=== PATIENT | male | born 1955 | race Two or more races ===

== ENCOUNTER 2016-05-22 17:57 | Emergency (ER) | payer OTHER, MEDICAID ==
[2016-05-22] MEDS ORDERED: IPRATROPIUM/ALBUTEROL 3 ML DEYVIAL IH ONE ×2 (19:46→20:36)
[2016-05-22 19:59] LABS: % IMMATURE GRANULYOCYTES 0.4 % (0.0-1.1); ABSOLUTE IMMATURE GRANULOCYTES 0.02 10^3/uL (0.00-0.10); ADD DIFF? NO; ADD MORPH? NO; ADD SCAN? NO; ATYPICAL LYMPHOCYTE FLAG 70 (0-99); FRAGMENT RBC FLAG 0 (0-99); HEMATOCRIT 48.1 % (40.0-51.0); HEMOGLOBIN 17.1 g/dL (13.7-17.5); LEFT SHIFT FLG 0 (0-99); LIPEMIA HEMOLYSIS FLAG 90 (0-99); MEAN CELL HEMOGLOBIN 32.3 pg (27.9-34.1); MEAN CELL HEMOGLOBIN CONCENTR. 35.6 g/dL (32.4-36.7); MEAN CELL VOLUME 90.8 fL (81.5-99.8); MEAN PLATELET VOLUME 11.9 fL (8.7-11.7); PLATELET CLUMPS FLAG 0 (0-99); PLATELET COUNT 99 10^3/uL (150-400); RED CELL DISTRIBUTION WIDTH 14.3 % (11.5-15.2)
--- NOTE | 2016-05-22 20:00 | CPEKG ---
Heart Rate: 71 RR Interval: 845 P-R Interval: 180 QRSD Interval: 100 QT Interval: 372 QTC Interval: 405 P [place]: 63 QRS [place]: 56 T Wave [place]: 45 EKG Severity - NORMAL ECG - EKG Impression: SINUS RHYTHM Electronically Signed By: Sedrick Briceño 23-May-2016 01:03:41
[2016-05-22 20:10] LABS: ANION GAP 8 mEq/L (8-16); CARBON DIOXIDE 24 mEq/l (22-31); CHLORIDE 107 mEq/L (97-110); CREATININE 0.6 mg/dL (0.7-1.3); GLOMERULAR FILTRATION RATE > 60; GLUCOSE 89 mg/dL (70-100); POTASSIUM 4.1 mEq/L (3.5-5.2); SODIUM 139 mEq/L (134-144)
[2016-05-22] MEDS ORDERED: BENZONATATE 100 MG CAP PO ONE (20:26)
[2016-05-22] MEDS ORDERED: OSELTAMIVIR PHOSPHATE 75 MG CAP PO ONE (20:26)
[2016-05-22] MEDS ORDERED: NS 1,000 ML IV ONE (20:30)
--- NOTE | 2016-05-22 20:30 | DX ---
PA and Lateral Chest History: Cough in a 60-year-old male; comparison PA and lateral chest February 03, 2013 Findings: The heart and mediastinal contours are normal. Pulmonary vascularity is normal. Aortic tort uosity is seen which could reflect hypertension. There is central peribronchial thickening. Hyperexpansion is identified. The CT scan of the chest suzan wed mild centrilobular emphysema without pulmonary fibrosis. Streaky lower lung opacities bilaterally are unchanged and probably reflect scarring. Postoperative changes are noted involving the right suzan ulder. Impression: 1. Airways disease possibly a combination of emphysema and chronic bronchitis. 2. See above report for additional findings.
--- NOTE | 2016-05-22 20:33 | EDPHY ---
H & P Time Seen by Provider: 05/22/16 19:40 HPI/ROS: HPI Cough, congestion. Is 60-year-old male by private vehicle. Patient reports that he has had bronchitis with cough and congestion on and off for the last 2 months. She reports that for the last several days he has felt dehydrated, sometimes fatigued and lightheaded and had a worsening cough with body aches and muscle aches. He denies having a fever. ROS: Constitutional: No fever, no chills. As above. Eyes: No discharge. No changes in vision. ENT: No sore throat. No nasal congestion or rhinorrhea. Respiratory: As above. Cardiac: No chest pain, no palpitations. Gastrointestinal: No abdominal pain, no vomiting, no diarrhea. Musculoskeletal: As above. Skin: No rashes. Neurological: No headache. No focal weakness or altered sensation. Past medical history: Pneumonia, anxiety. Social history: Nonsmoker. Physical Exam: General Appearance: Alert, no distress. This patient is responding to questions appropriately and in full sentences. This patient appears well- hydrated and well-nourished. Eyes: Pupils equal and round no pallor or injection. No lid edema, erythema or injection. Respiratory: There are no retractions, good air movement bilaterally. Scant rhonchi and wheezing bilaterally. No tachypnea. Cardiovascular: Regular rate and rhythm. No murmur. Neurological: Motor sensory function is grossly intact. Cranial nerves are normal. Gait is normal. Skin: Warm and dry, no rashes. Musculoskeletal: Neck is supple and nontender. Extremities are symmetrical. All joints range without pain or impingement. Psychiatric: No agitation. No depression. Database: Influenza-positive for influenza A. EKG: Imaging: Chest x-ray PA and lateral; the cardiac mediastinal silhouette is unremarkable. No evidence of infiltrate or pneumothorax. Bronchitis, some hyper expansion, diffuse airway disease. No acute cardiopulmonary disease process noted. Interpreted by me. Procedures: Emergency department course: IV placed. He was placed on a monitor. He was started on IV normal saline. 1 L to be given over the next hour for dehydration. He was initially given an albuterol/Atrovent nebulizer treatment. After diagnosis of influenza A he was given 75 mg of Tamiflu. He was given 200 mg of Tessalon Perle. Nebulizer repeated at 8:40 p.m.. 9:00 p.m., patient re-evaluated. He is feeling better at this time. Results of his diagnostic tests were reviewed with him. Chest x-ray was discussed. He feels comfortable going home. I feel he is safe for discharge. I stressed close follow-up with his primary care physician. Return to emergency department precautions reviewed. Oral hydration was discussed. He will be discharged with a meter dose inhaler, instructions for high-dose ibuprofen, Tessalon Perle and Tamiflu. He was discharged in good condition. Differential Diagnosis: The differential diagnosis on this patient includes but is not limited to bronchitis, upper respiratory infection, influenza, pneumonia. This represents a partial list of diagnoses considered. These considerations are based on history, physical exam, past history, reassessment and diagnostic testing. Smoking Status: Current every day smoker Constitutional: Initial Vital Signs Temperature (C) 36.8 C 05/22/16 18:15 Heart Rate 76 05/22/16 18:15 Respiratory Rate 16 05/22/16 18:15 Blood Pressure 148/86 H 05/22/16 18:15 O2 Sat (%) 91 L 05/22/16 18:15 O2 Delivery Mode Room Air Allergies/Adverse Reactions: No Known Allergies Allergy (Verified 05/22/16 18:29) Home Medications: Medication Instructions Recorded Albuterol [Proventil Inhaler HFA 2 puffs IH Q2-4PRN PRN #1 mdi 05/22/16 (*)] Benzonatate [Tessalon Pearles] 100 mg PO TID #12 cap 05/22/16 GABAPENTIN 400 mg PO 05/22/16 MIRTAZAPINE [Remeron 7.5 mg] 7.5 mg PO HS 05/22/16 Oseltamivir Phosphate [Tamiflu 75 75 mg PO BID #10 cap 05/22/16 mg (RX)] buPROPion [Wellbutrin] 100 mg PO 05/22/16 Medical Decision Making - Data Points Laboratory Results: Laboratory Results 05/22/16 19:40 05/22/16 19:40 05/22/16 05/22/16 19:40 19:05 WBC 5.29 10^3/uL (3.80-9.50) RBC 5.30 10^6/uL (4.40-6.38) Hgb 17.1 g/dL (13.7-17.5) Hct 48.1 % (40.0-51.0) MCV 90.8 fL (81.5-99.8) MCH 32.3 pg (27.9-34.1) MCHC 35.6 g/dL (32.4-36.7) RDW 14.3 % (11.5-15.2) Plt Count 99 L 10^3/uL (150-400) MPV 11.9 H fL (8.7-11.7) Neut % (Auto) 48.0 % (39.3-74.2) Lymph % (Auto) 40.6 % (15.0-45.0) [place] % (Auto) 8.1 % (4.5-13.0) Eos % (Auto) 2.5 % (0.6-7.6) Baso % (Auto) 0.4 % (0.3-1.7) Nucleat RBC Rel Count 0.0 % (0.0-0.2) Absolute Neuts (auto) 2.54 10^3/uL (1.70-6.50) Absolute Lymphs (auto) 2.15 10^3/uL (1.00-3.00) Absolute Monos (auto) 0.43 10^3/uL (0.30-0.80) Absolute Eos (auto) 0.13 10^3/uL (0.03-0.40) Absolute Basos (auto) 0.02 10^3/uL (0.02-0.10) Absolute Nucleated RBC 0.00 10^3/uL (0-0.01) Immature Gran % 0.4 % (0.0-1.1) Immature Gran # 0.02 10^3/uL (0.00-0.10) Sodium 139 mEq/L (134-144) Potassium 4.1 mEq/L (3.5-5.2) Chloride 107 mEq/L (97-110) Carbon Dioxide 24 mEq/l (22-31) Anion Gap 8 mEq/L (8-16) BUN 11 mg/dL (7-23) Creatinine 0.6 L mg/dL (0.7-1.3) Estimated GFR > 60 Glucose 89 mg/dL (70-100) Calcium 10.0 mg/dL (8.5-10.4) Influenza Typ A,B (DFA) POSITIVE FOR FLU A H (NEGATIVE) Medications Given: Discontinued Medications Albuterol/Ipratropium (Duoneb) 3 ml IH EDNOW ONE Stop: 05/22/16 19:47 Last Admin: 05/22/16 20:00 Dose: 3 ml Benzonatate (Tessalon Pearles) 200 mg PO EDNOW ONE Stop: 05/22/16 20:27 Last Admin: 05/22/16 20:37 Dose: 200 mg Oseltamivir Phosphate (Tamiflu) 75 mg PO EDNOW ONE Stop: 05/22/16 20:27 Last Admin: 05/22/16 20:36 Dose: 75 mg Departure - Departure Disposition: Home, Routine, Self-Care Clinical Impression: Influenza A, Bronchitis Condition: Good Instructions: Influenza (ED), Acute Bronchitis (ED) Additional Instructions: Read and follow provided instructions. Follow-up with your primary care physician in tomorrow without fail. Take medication as prescribed. Ibuprofen dosin mg every 6 hours with meals for the next 3 days only. Albuterol meter dose inhaler: 1-2 puffs every 2-4 hours as needed for cough and shortness of breath. It is very important that you keep yourself well hydrated. Drink lots of fluids. A good fluid to drink is Gatorade mixed with water in a 1-1 dilution. Return to the emergency department for worsening cough, difficulty breathing, high fever or other serious concerns. Referrals: Maria D Dinh MD [Primary Care Provider] - As per Instructions Prescriptions: Albuterol [Proventil Inhaler HFA (*)] 2 puffs IH Q2-4PRN PRN #1 mdi PRN Reason: Sob/Dyspnea Oseltamivir Phosphate [Tamiflu 75 mg (RX)] 75 mg PO BID #10 cap Benzonatate [Tessalon Pearles] 100 mg PO TID #12 cap
[2016-05-22 20:39] VITALS: RESP 18
[2016-05-22] MEDS ORDERED: ALBUTEROL INH PREPACK MDI TAKEHOME ONE (21:05)
[2016-05-22 21:41] VITALS: BP 134/88; PULSE 78; TEMP 97.9; O2SAT 93
== END 2016-05-22 21:42 | disposition home or self-care (01) ==
DX: J10.1 Influenza due to other identified influenza virus with other respiratory manifestations (principal); J40 Bronchitis, not specified as acute or chronic; F17.200 Nicotine dependence, unspecified, uncomplicated

== ENCOUNTER → 2016-06-10 | Outpatient (CLI) | payer OTHER | LOC: FIMAGING 11:41 | PROVIDERS: ATTEND Internal Medicine | DX: J43.9 Emphysema, unspecified (principal) ==

== ENCOUNTER → 2016-06-14 | Outpatient (CLI) | payer OTHER | LOC: BHFA 13:30 | PROVIDERS: ATTEND Internal Medicine Cardiovascular Disease | DX: R00.2 Palpitations (principal) ==

== ENCOUNTER 2017-01-24 00:02 | Inpatient (IN) | payer OTHER ==
[2017-01-24] MEDS ORDERED: NS 1,000 ML IV ONE ×2 (00:08→00:26)
[2017-01-24] MEDS ORDERED: ONDANSETRON 4 MG/2 ML VIAL IVP ONE (00:08)
[2017-01-24] MEDS ORDERED: HYDROmorphONE/DILAUDID 1 MG/ML INJ IVP ONE ×3 (00:08→01:47)
--- NOTE | 2017-01-24 00:12 | EDPHY ---
H & P HPI/ROS: HPI CHIEF COMPLAINT: Abdominal pain HISTORY OF PRESENT ILLNESS: This patient is a 61-year-old male he presents emergency room by EMS for abdominal pain. Patient reports to me around 4:00 p.m. today he developed abdominal pain lower in his abdomen sharp stabbing this is radiate up to his epigastric region and sometimes up into his chest. He tells me his abdomen is distended and more bigger than it normally is. The pain is persisted. He felt nauseous but could not vomit. He had a normal bowel movement earlier. He denies any chest pain however he does report the pain in his abdomen radiates up into his mid epigastric region. He has not had fever. No shortness of breath. He received 100 mcg of IV fentanyl in route which improved his abdominal pain. This is been present since 4:00 p.m. or approximately 8 hours ago. He has no history of coronary artery disease or stroke. Past Medical History: COPD on 5 L of oxygen. Past Surgical History: Cholecystectomy Social History: Daily Use of ETOH, Tobacco. Denies Drugs. Family History: Noncontributory. ROS REVIEW OF SYSTEMS: A comprehensive 10 point review of systems is otherwise negative aside from elements mentioned in the history of present illness. Exam Constitutional appears nontoxic triage nursing summary reviewed, vital signs reviewed, awake/alert. Eyes normal conjunctivae and sclera, EOMI, PERRLA. HENT normal inspection, atraumatic, moist mucus membranes, no epistaxis, neck supple/ no meningismus, no raccoon eyes. Respiratory clear to auscultation bilaterally, normal breath sounds, no respiratory distress, no wheezing. Cardiovascular rate normal, regular rhythm, no murmur, no edema, distal pulses normal. Gastrointestinal abdomen is soft however round and large, tender diffusely, more tenderness the epigastric and bilateral lower quadrants, no peritoneal signs no guarding, normal bowel sounds, no distension, no pulsatile mass. Genitourinary no CVA tenderness. Musculoskeletal no midline vertebral tenderness, full range of motion, no calf swelling, no tenderness of extremities, no meningismus, good pulses, neurovascularly intact. Skin pink, warm, & dry, no rash, skin atraumatic. Neurologic awake, alert and oriented x 3, AAOx3, moves all 4 extremities equally, motor intact, sensory intact, CN II-XII intact, normal cerebellar, normal vision, normal speech. Psychiatric normal mood/affect. Heme/Lymph/Immune no lymphadenopathy. Differential diagnosis includes but is not limited to and in no particular order : Bowel obstruction, appendicitis, gallbladder disease, diverticulitis, colitis , enteritis, perforated viscus, gastritis, GERD, esophagitis, urinary tract infection, pyelonephritis, kidney stones Medical Decision Making: Plan for this patient IV establishment IV fluid bolus , full monitoring manager, EKG, check troponin, CT scan abdomen pelvis with IV contrast with lactic acid, evaluate abdominal pain. Check lipase. LFTs. Inflammatory markers. UA. Re-evaluate. 1 mg IV Dilaudid for pain control. Re-evaluation: EKG interpretation by me on record in [employer] system. Impression time of EKG , this is sinus rhythm rate of 86. There is no acute ischemic change appreciated. Specifically no ST elevation. No ST depressions no significant T- wave abnormalities. When I compare this EKG to his old EKG dated 05/22/2016 is very similar morphology. Lipase elevated 2000+. Most likely cause of abdominal pain. Will admit to the hospitalist service for acute pancreatitis. 0136AM: CT scan reviewed. Shows acute pancreatitis. No necrotizing pancreatitis no pseudocyst. Pain control with IV Dilaudid. Updated patient. Agrees for admission for acute pancreatitis. Spoke with the hospitalist service Dr. Hawthorne who agrees to admit. Source: Patient, EMS - Medical/Surgical History Hx Chronic Respiratory Disease: Yes Other PMH: past hx PNA. anxiety - Social History Smoking Status: Current every day smoker Constitutional: Initial Vital Signs Temperature (C) 36.6 C 01/24/17 00:08 Heart Rate 89 01/24/17 00:08 Respiratory Rate 16 01/24/17 00:08 Blood Pressure 162/102 H 01/24/17 00:08 O2 Sat (%) 89 L 01/24/17 00:08 O2 Delivery Mode Nasal Cannula O2 (L/minute) 5 Allergies/Adverse Reactions: No Known Allergies Allergy (Verified 01/24/17 00:12) Home Medications: Medication Instructions Recorded Albuterol [Proventil Inhaler HFA 1 - 2 puffs IH Q4H PRN 01/24/17 (*)] Diltiazem HCl [Cartia XT 180mg] 180 mg PO DAILY 01/24/17 Gabapentin [Neurontin 300 MG (*)] 1,200 mg PO HS 01/24/17 Gabapentin [Neurontin 300 MG (*)] 600 mg PO DAILY 01/24/17 Mirtazapine [Remeron] 45 mg PO HS 01/24/17 Tiotropium Inhaler [Spiriva 1 inh IH DAILY 01/24/17 Inhaler] busPIRone [Buspar (*)] 7.5 mg PO BID 01/24/17 Medical Decision Making - Data Points Laboratory Results: Laboratory Results 01/24/17 00:16 01/24/17 00:16 Medications Given: Acetaminophen (Tylenol Rectal) 650 mg MO Q4 PRN PRN Reason: Pain, Mild/Fever,Can't Take PO Stop: 07/24/17 19:23 Last Admin: 01/26/17 04:25 Dose: 650 mg Albuterol (Ventolin Hfa Inhaler) 4 puffs IH [facility] Stop: 07/24/17 11:59 Last Admin: 01/26/17 19:47 Dose: 4 puffs Buspirone HCl (Buspar) 7.5 mg PO BID [facility] Stop: 07/23/17 08:59 Last Admin: 01/26/17 20:06 Dose: 7.5 mg Chlorhexidine Gluconate (Peridex) 15 ml PO Q12@08,20 [place] Stop: 07/24/17 19:59 Last Admin: 01/26/17 20:08 Dose: 15 ml Enoxaparin Sodium (Lovenox) 40 mg SC DAILY [place] Stop: 07/23/17 08:59 Last Admin: 01/26/17 09:00 Dose: 40 mg Gabapentin (Neurontin) 600 mg PO DAILY [facility] Stop: 07/23/17 08:59 Last Admin: 01/26/17 09:44 Dose: Not Given Gabapentin (Neurontin) 1,200 mg PO HS [facility] Stop: 07/23/17 20:59 Last Admin: 01/26/17 20:06 Dose: 1,200 mg Sodium Chloride (Ns) 1,000 mls @ 75 mls/hr IV CONT [place] Stop: 07/23/17 02:59 Last Admin: 01/26/17 20:32 Dose: 1,000 mls Dexmedetomidine HCl 400 mcg/ (Sodium Chloride) 104 mls @ 0 mls/hr IV CONT SILVANO; Titrate PRN Reason: Protocol Stop: 07/23/17 10:59 Last Admin: 01/25/17 09:11 Dose: 104 mls Famotidine/Sodium Chloride (Pepcid 20 Mg (Premix)) 50 mls @ 200 mls/hr IV Q12HRS [place] Stop: 07/24/17 20:59 Last Admin: 01/26/17 20:07 Dose: 50 mls Fentanyl/Sodium Chloride (Fentanyl 10 Mcg/Ml (Premix)) 100 mls @ 0 mls/hr IV CONT SILVANO; Per Protocol PRN Reason: Protocol Stop: 02/04/17 09:59 Last Admin: 01/26/17 07:47 Dose: 100 mls Propofol (Diprivan 10 Mg/Ml (Premix)) 100 mls @ 0 mls/hr IV CONT SILVANO; Per Protocol PRN Reason: Protocol Stop: 07/24/17 09:59 Last Admin: 01/26/17 10:08 Dose: 100 mls Diltiazem HCl 125 mg/ Dextrose 125 mls @ 0 mls/hr IV CONT SILVANO; Per Protocol PRN Reason: Protocol Stop: 07/25/17 03:29 Last Admin: 01/26/17 12:57 Dose: 125 mls Ertapenem 1 gm/ Sodium (Chloride) 100 mls @ 200 mls/hr IV DAILY SILVANO PRN Reason: Protocol Stop: 02/25/17 12:59 Last Admin: 01/26/17 13:08 Dose: 100 mls Lorazepam (Ativan Injection) 1 mg IVP Q6H [place] Stop: 07/24/17 09:44 Last Admin: 01/26/17 16:42 Dose: 1 mg Methylprednisolone Sodium Succinate (Solu-Medrol) 40 mg IVP Q6HRS S[place]AN[place] Stop: 07/24/17 08:29 Last Admin: 01/26/17 17:51 Dose: 40 mg Mirtazapine (Remeron) 45 mg PO HS SIL[place]ANO Stop: 07/23/17 20:59 Last Admin: 01/26/17 20:06 Dose: 45 mg Nicotine (Nicoderm Cq) 21 mg TD DAILY S[place]AN[place] Stop: 07/23/17 08:59 Last Admin: 01/26/17 09:03 Dose: 21 mg Promethazine HCl (Phenergan) 6.25 - 12.5 mg IVP Q6HRS PRN PRN Reason: Nausea/Vomiting, Use 2nd Stop: 07/23/17 02:57 Last Admin: 01/24/17 04:13 Dose: 12.5 mg Discontinued Medications Albuterol/Ipratropium (Duoneb) 3 ml IH QID [facility] Stop: 07/23/17 08:59 Last Admin: 01/25/17 08:35 Dose: 3 ml Diltiazem HCl (Cardizem Er Q24hr) 180 mg PO DAILY [facility] Stop: 07/23/17 09:59 Last Admin: 01/25/17 09:38 Dose: Not Given Diltiazem HCl (Cardizem Immediate Release) 30 mg PO Q6HRS [facility] Stop: 07/24/17 11:59 Last Admin: 01/25/17 12:56 Dose: 30 mg Diltiazem HCl (Cardizem Immediate Release) 30 mg PO Q4H [facility] Stop: 07/24/17 16:59 Last Admin: 01/25/17 20:30 Dose: 30 mg Diltiazem HCl (Cardizem Immediate Release) 30 mg PO Q4H [facility] Stop: 07/25/17 00:59 Last Admin: 01/26/17 09:44 Dose: Not Given Fentanyl (Sublimaze) 100 mcg IVP ONCE ONE Stop: 01/25/17 11:16 Last Admin: 01/25/17 09:20 Dose: 100 mcg Furosemide (Lasix Injection) 20 mg IVP ONCE ONE Stop: 01/25/17 08:23 Last Admin: 01/25/17 08:32 Dose: 20 mg Furosemide (Lasix Injection) 20 mg IVP ONCE ONE Stop: 01/25/17 09:11 Last Admin: 01/25/17 09:00 Dose: 20 mg Hydralazine HCl (Apresoline) 10 mg IVP Q2HRS PRN PRN Reason: SBP Greater Than 180,DBP>110 Stop: 07/23/17 04:56 Last Admin: 01/24/17 13:05 Dose: 10 mg Hydromorphone HCl (Dilaudid) 1 mg IVP EDNOW ONE Stop: 01/24/17 00:09 Last Admin: 01/24/17 00:25 Dose: 1 mg Hydromorphone HCl (Dilaudid) 1 mg IVP EDNOW ONE Stop: 01/24/17 01:16 Last Admin: 01/24/17 01:18 Dose: 1 mg Hydromorphone HCl (Dilaudid) 1 mg IVP EDNOW ONE Stop: 01/24/17 01:48 Last Admin: 01/24/17 01:59 Dose: 1 mg Hydromorphone HCl (Dilaudid) 0.5 - 1 mg IVP Q2HRS PRN PRN Reason: Pain, Severe Unable to Take PO Stop: 02/03/17 02:56 Last Admin: 01/24/17 13:59 Dose: 1 mg Sodium Chloride (Ns) 1,000 mls @ 0 mls/hr IV EDNOW ONE; Wide Open PRN Reason: Protocol Stop: 01/24/17 00:09 Last Admin: 01/24/17 00:25 Dose: 1,000 mls Sodium Chloride (Ns) 1,000 mls @ 0 mls/hr IV ONCE ONE PRN Reason: Wide Open Stop: 01/24/17 00:27 Last Admin: 01/24/17 00:46 Dose: 1,000 mls Thiamine HCl 500 mg/ Sodium (Chloride) 105 mls @ 210 mls/hr IV DAILY SIL[place]ANO Stop: 01/26/17 09:29 Last Admin: 01/26/17 11:10 Dose: 105 mls Albumin Human (Alburx 5) 500 mls @ 0 mls/hr IV ONCE ONE PRN Reason: As Directed Stop: 01/26/17 08:24 Last Admin: 01/26/17 09:05 Dose: 500 mls Sodium Chloride (Ns) 1,000 mls @ 3,000 mls/hr IV ONCE ONE Stop: 01/26/17 09:02 Last Admin: 01/26/17 09:36 Dose: 1,000 mls Lidocaine (Lidocaine 2% Jelly) 2 denisha TP ONCALL ONE Stop: 01/26/17 10:48 Last Admin: 01/26/17 11:46 Dose: 2 denisha Lidocaine HCl (Lidocaine Hcl 1%) 1 - 300 mg MISC ONCALL ONE Stop: 01/26/17 10:48 Last Admin: 01/26/17 11:46 Dose: 300 mg Lorazepam (Ativan Injection) 0.5 - 1 mg IVP Q8HRS PRN PRN Reason: Anxiety, Unable to Take PO Stop: 07/23/17 02:57 Last Admin: 01/24/17 05:35 Dose: 0.5 mg Lorazepam (Ativan Injection) 0.5 - 2 mg IVP Q30M PRN PRN Reason: Anxiety, Unable to Take PO Stop: 07/23/17 02:57 Last Admin: 01/25/17 14:59 Dose: 2 mg Midazolam HCl (Versed) 1 mg IVP ONCE ONE Stop: 01/25/17 11:16 Last Admin: 01/25/17 09:20 Dose: 1 mg Ondansetron HCl (Zofran) 4 mg IVP EDNOW ONE Stop: 01/24/17 00:09 Last Admin: 01/24/17 00:25 Dose: 4 mg Succinylcholine Chloride (Quelicin) 80 mg IVP ONCE ONE Stop: 01/25/17 11:16 Last Admin: 01/25/17 09:20 Dose: 80 mg Departure - Departure Disposition: [place] Inpatient Acute Clinical Impression: Acute pancreatitis Qualifiers: Pancreatitis type: other Acute pancreatitis complication: unspecified Qualified Code(s): K85.80 - Other acute pancreatitis without necrosis or infection Condition: Fair
[2017-01-24 00:19] LABS: % IMMATURE GRANULYOCYTES 0.6 % (0.0-1.1); ABSOLUTE IMMATURE GRANULOCYTES 0.07 10^3/uL (0.00-0.10); ADD DIFF? NO; ADD MORPH? NO; ADD SCAN? NO; ATYPICAL LYMPHOCYTE FLAG 10 (0-99); FRAGMENT RBC FLAG 0 (0-99); LEFT SHIFT FLG 0 (0-99); LIPEMIA HEMOLYSIS FLAG 90 (0-99); MEAN CELL HEMOGLOBIN 36.3 pg (27.9-34.1); MEAN CELL VOLUME 98.1 fL (81.5-99.8); MEAN PLATELET VOLUME 12.3 fL (8.7-11.7); PLATELET CLUMPS FLAG 10 (0-99); PLATELET COUNT 126 10^3/uL (150-400); RED BLOOD CELL COUNT 6.36 10^6/uL (4.40-6.38); RED CELL DISTRIBUTION WIDTH 13.9 % (11.5-15.2)
[2017-01-24 00:21] LABS: HEMOGLOBIN 23.1 g/dL (13.7-17.5)
[2017-01-24 00:22] LABS: HEMATOCRIT 62.4 % (40.0-51.0)
--- NOTE | 2017-01-24 00:22 | CPEKG ---
Heart Rate: 86 RR Interval: 698 P-R Interval: 164 QRSD Interval: 88 QT Interval: 360 QTC Interval: 431 P [place]: 67 QRS [place]: 7 T Wave [place]: 48 EKG Severity - BORDERLINE ECG - EKG Impression: SINUS RHYTHM EKG Impression: LOW VOLTAGE IN FRONTAL LEADS EKG Impression: BORDERLINE R WAVE PROGRESSION, ANTERIOR LEADS Electronically Signed By: Power Lizarraga 24-Jan-2017 07:35:51
[2017-01-24] MEDS ORDERED: IOPAMIDOL (ISOVUE-300) 100 ML BTL ONE (00:32)
[2017-01-24 00:40] LABS: ALANINE AMINOTRANSFERASE 148 IU/L (21-72); ALBUMIN 4.6 g/dL (3.5-5.0); ALKALINE PHOSPHATASE 116 IU/L (38-126); ANION GAP 16 mEq/L (8-16); ASPARTATE AMINOTRANSFERASE 114 IU/L (17-59); BILIRUBIN,TOTAL 1.5 mg/dL (0.1-1.4); BILIRUBIN-CONJUGATED 0.6 mg/dL (0.0-0.5); BILIRUBIN-UNCONJUGATED 0.9 mg/dL (0.0-1.1); CALCIUM 11.7 mg/dL (8.5-10.4); CARBON DIOXIDE 21 mEq/l (22-31); CHLORIDE 99 mEq/L (97-110); CREATININE 0.8 mg/dL (0.7-1.3); GLOMERULAR FILTRATION RATE > 60; GLUCOSE 129 mg/dL (70-100); POTASSIUM 4.3 mEq/L (3.5-5.2); SODIUM 136 mEq/L (134-144); TOTAL PROTEIN 7.5 g/dL (6.3-8.2)
[2017-01-24 01:29] LABS: INR 1.01 (0.83-1.16); PROTIME(PATIENT) 13.2 SEC (12.0-15.0)
[2017-01-24 01:30] LABS: APTT 29.2 SEC (23.0-38.0)
[2017-01-24 01:45] LABS: ETHANOL SERUM < 10 mg/dL (0-10)
[2017-01-24 01:58] LABS: TROPONIN I < 0.012 ng/mL (0.000-0.034)
[2017-01-24] MEDS ORDERED: IPRATROPIUM/ALBUTEROL 3 ML DEYVIAL IH PRN (02:58)
[2017-01-24] MEDS: HYDROmorphONE/DILAUDID 1 MG/ML INJ IVP PRN ×5 (03:01→13:59)
[2017-01-24] MEDS: LORazepam 2 MG/ML INJ IVP PRN ×6 (03:25→21:44)
[2017-01-24] MEDS: NS 1,000 ML IV SCH ×4 (04:09→21:47)
[2017-01-24] MEDS: PROMETHAZINE HCL 25 MG/ML INJ IVP PRN (04:13)
[2017-01-24] MEDS: THIAMINE HCL 500 MG in NS 100 ML IV SCH (04:31)
[2017-01-24 04:59] LABS: COLOR YELLOW; LEUKOCYTE ESTERASE,URINE NEGATIVE (NEGATIVE); NITRITE,URINE NEGATIVE (NEGATIVE)
--- NOTE | 2017-01-24 05:08 | GHP ---
[f rep st] HISTORY AND PHYSICAL DATE OF ADMISSION: 01/24/2017 Patient's PCP is not assigned. Patient provides history, appears reliable. His EMR is reviewed and case discussed with ED provider. CHIEF COMPLAINT: Epigastric pain. HISTORY OF PRESENT ILLNESS: This is a very pleasant 61-year-old gentleman with past medical history significant for COPD with chronic respiratory failure requiring 5 L/minute continuous oxygen, JO-ANN with CPAP, neuropathy, history of migraine headaches, and obesity, who presents to the emergency department today with complaints of several hours of epigastric abdominal pain. Patient reports sudden onset without any abdominal injury. The pain radiates to his back, towards the shoulder blades, and also down in the left lower quadrant. He describes it as a sharp, constant, stabbing pain, and has had some associated nausea without any vomiting. Patient also reports that in the past month, he has been noting increased bloating without any abdominal pain prior to today. The patient has had some occasional episodes of diarrhea without any melena or hematochezia. The patient reports some subjective fevers and sweats, but no chills. No recent sick contacts. The patient has been having increasing stressors and over the past month, he lost his job and has been increasing his alcohol intake. He reports that he drinks approximately 4 double shots of scotch on a daily basis for the past month. He is status post cholecystectomy and denies any jaundice or scleral icterus. REVIEW OF SYSTEMS: GENERAL: Positive for subjective fevers and sweats, decreased appetite. SKIN: Patient complains of a small lower leg scab following an injury that is slowly healing. No other open wounds or sores. ENT : Patient complains of chronic rhinorrhea with oxygen. He also has history of chronic sinusitis and congestion. Denies any sore throat. EYES: Patient reports chronically progressive poor vision, and also has noted some crusting drainage in the mornings. CV: Patient reports epigastric pain. No left or right-sided chest pain. No palpitations. RESPIRATORY: Patient reports some acute on chronic shortness of breath. He does wear 5 L/minute continuously on oxygen, but he has noted severely increased dyspnea on exertion secondary to increased pain, and work of breathing. GI: See HPI. : No dysuria, hematuria. MUSCULOSKELETAL: Chronic back pain. No myalgias. NEURO: History of migraines occasionally. No numbness or tingling. No focal deficits. PSYCH : Patient reports increased stressors, but no anxiety or depression. ALLERGIES: No known drug allergies. HOME MEDICATIONS: Bupropion 100 mg p.o. b.i.d., oseltamivir 75 mg p.o. b.i.d., completed mirtazapine 7.5 mg p.o. q.h.s., gabapentin 400 mg p.o. p.r.n., Tessalon Perles 100 mg p.o. t.i.d., Albuterol HFA 2 puffs inhaled q.2-4 p.r.n., which patient reports has not been helping. PAST MEDICAL HISTORY: Significant for obesity with BMI of 31.5, COPD chronically on 5 L/minute of oxygen, JO-ANN with CPAP, neuropathy, tobacco abuse, migraine headaches with history of left eye vision loss and exacerbation and chronic back pain. PAST SURGICAL HISTORY: Significant for open cholecystectomy, multiple back surgeries and bilateral shoulder surgeries. FAMILY HISTORY: Father related to lung cancer. SOCIAL HISTORY: Patient lives alone. He has been drinking as above, whiskey, approximately 4 double shots daily. He also uses marijuana intermittently, and continues to smoke. He reports he uses about 1 pack per week. CODE STATUS: Full. Patient without advanced directives, but desires his son to act as proxy, if needed. PHYSICAL EXAM: VITALS: Upon arrival to the ER, blood pressure 162/102, heart rate 89, respiratory rate 16, O2 saturation 89% on room air with a temperature of 36.6. Current vitals, blood pressure 147/97, heart rate 82, respiratory rate 20, O2 saturation 92% on 2 L by nasal cannula with a temperature of 36.8. GENERAL: No acute distress. Patient is sitting, leaning forward on the edge of his bed. He does appear uncomfortable and quite fatigued, but he is just resting very still. He is awake and pleasant, cooperative, appears older than stated age. HEAD: Normocephalic, atraumatic. EYES: Extraocular muscles grossly intact. Pupils are equal, round and symmetric. No scleral icterus or conjunctival injection. ENT: Mucous membranes appear slightly dry. No oropharyngeal erythema or exudates. NECK: Supple. Trachea midline. CV: Regular rate and rhythm. No murmurs, rubs, or gallops appreciated. RESPIRATORY : Lungs are clear to auscultation bilaterally, but also diminished diffusely. No wheezes or rhonchi appreciated. ABDOMEN: Obese, distended, but soft. Patient with epigastric tenderness to palpation. No rebound, guarding, or masses on limited exam secondary to patient's complaint of pain. : No Ribeiro in place. Exam deferred. EXTREMITIES: No cyanosis, clubbing. Minimal edema at the ankles and feet. No pretibial edema. The patient is able to sit up independently. NEURO: Grossly nonfocal. No facial drooping. Patient awake, alert, and oriented x3. PSYCH: Patient does appear a little bit anxious and uncomfortable, but he is still pleasant and cooperative. LABS: WBC is 10.9, H and H 23.1 and 62.4, MCV of 98.1, platelet count is 126. No bands. PT is 13.2, INR 1.01, PTT is 29.2. VBG: Lactic acid 2.3. Sodium 136 , potassium 4.3, chloride is 99, CO2 is 21, BUN 12, creatinine 0.8, GFR of greater than 60, glucose 129, calcium 11.7, phosphorus 2.7, total bilirubin is 1.5, conjugated bilirubin 0.6, ALT is 148, AST is 114, alkaline phosphatase is 116. Troponin is negative. Total protein 7.5, albumin is 4.6, lipase is 253. CT abdomen and pelvis: Report pending. Unable to process view finder. By report from ED provider, patient with acute pancreatitis. No evidence of pseudocyst. Fatty liver is noted. No other acute findings. EKG reviewed myself shows normal sinus rhythm. Q-wave is in lead III. No acute ST findings. QTc is 431. ASSESSMENT AND PLAN: This is a pleasant 61-year-old gentleman with history of chronic obstructive pulmonary disease, obstructive sleep apnea, obesity, continued tobacco use, and recent increase in alcohol intake, who presents with complaints of acute epigastric pain. 1. Acute pancreatitis is most likely related to patient's increased use of alcohol. He does not have any evidence of obstructive pattern, and is also status post a cholecystectomy. The findings are consistent on CT. Patient will receive IV fluids and will be n.p.o. He is not actively having any emesis , but if this develops, then will consider NG tube placement. Reviewed with patient need to remain n.p.o. for bowel rest. 2. Intractable abdominal pain. We will continue with Dilaudid p.r.n., and also add Ativan for spasm pain. Reviewed with patient his significant oxygen needs and if increased sedation and hypoxia occur, then we will need to re- evaluate dosing. If continue to have difficulty controlling patient's pain, then may need to consider [employer]ANT pump. 3. Elevated lactate, likely related to acute illness and dehydration. Continue with IV fluids and repeat a lactate. No evidence of infectious source at this time. 4. Hyperbilirubinemia, mildly elevated, likely related to acute illness with pancreatitis. No evidence of obstructive process on CT. We will continue to monitor LFTs. 5. Transaminitis, possibly related to acute illness versus fatty liver, and acute alcoholic hepatitis is most likely. The patient will be n.p.o., will receive IV fluids. We will plan to repeat a CMP in the morning. 6. Hyperglycemia. Mildly elevated. This is nonfasting lab. If this remains elevated, will consider insulin sliding scale. Also contributing likely is acute pancreatitis. 7. Chronic obstructive pulmonary disease without exacerbation. Continue with oxygen, p.r.n. nebulizer. Resume patient's home medications. 8. Obesity with body mass index of greater than 31. Lifestyle modifications were recommended as tolerated. 9. Polycythemia, likely multifactorial including dehydration and patient has history of chronic obstructive pulmonary disease and sleep apnea. Will continue with IV fluids. Repeat a CBC in the morning. 10. Thrombocytopenia, mildly decreased. This could be related to patient's acute illness versus liver involvement related to alcohol and fatty liver. Patient's PT/INR, however, is normal at this time. 11. Fluid, electrolyte, nutrition. Continue with aggressive IV fluid hydration. Electrolytes will be replaced if needed and patient will be n.p.o. Again, this was discussed with him, the importance of maintaining n.p.o. status for speedier likelihood of resolution. 12. Prophylaxis. Sequential compression devices and Lovenox. 13. Cor status is full. Patient without advance directives and desires son to act as proxy, if needed. DISPOSITION: The patient has been admitted to inpatient status on the medical floor. Given the severity of his symptoms and the difficulties managing his pain at this time, anticipate greater than 2 midnight stay. /[id number]/MODL MTDD
[2017-01-24 05:40] LABS: % IMMATURE GRANULYOCYTES 0.5 % (0.0-1.1); ABSOLUTE IMMATURE GRANULOCYTES 0.05 10^3/uL (0.00-0.10); ADD DIFF? NO; ADD MORPH? NO; ADD SCAN? NO; ATYPICAL LYMPHOCYTE FLAG 0 (0-99); FRAGMENT RBC FLAG 0 (0-99); LEFT SHIFT FLG 0 (0-99); LIPEMIA HEMOLYSIS FLAG 90 (0-99); MEAN CELL HEMOGLOBIN 35.9 pg (27.9-34.1); MEAN CELL HEMOGLOBIN CONCENTR. 35.3 g/dL (32.4-36.7); MEAN CELL VOLUME 101.7 fL (81.5-99.8); MEAN PLATELET VOLUME 12.2 fL (8.7-11.7); PLATELET CLUMPS FLAG 0 (0-99); PLATELET COUNT 108 10^3/uL (150-400); RED BLOOD CELL COUNT 6.05 10^6/uL (4.40-6.38); RED CELL DISTRIBUTION WIDTH 14.4 % (11.5-15.2)
[2017-01-24 05:48] LABS: ALANINE AMINOTRANSFERASE 130 IU/L (21-72); ALBUMIN 3.7 g/dL (3.5-5.0); ALKALINE PHOSPHATASE 86 IU/L (38-126); AMYLASE 291 IU/L (30-110); ANION GAP 11 mEq/L (8-16); ASPARTATE AMINOTRANSFERASE 109 IU/L (17-59); BILIRUBIN,TOTAL 1.3 mg/dL (0.1-1.4); CALCIUM 10.5 mg/dL (8.5-10.4); CARBON DIOXIDE 21 mEq/l (22-31); CHLORIDE 103 mEq/L (97-110); CREATININE 0.8 mg/dL (0.7-1.3); GLOMERULAR FILTRATION RATE > 60; GLUCOSE 104 mg/dL (70-100); MAGNESIUM 1.8 mg/dL (1.6-2.3); SODIUM 135 mEq/L (134-144); TOTAL PROTEIN 6.2 g/dL (6.3-8.2)
[2017-01-24 05:59] LABS: HEMATOCRIT 61.5 % (40.0-51.0); HEMOGLOBIN 21.7 g/dL (13.7-17.5)
[2017-01-24] MEDS ORDERED: TEARS/DEXTRAN 70/HYPROMELLOSE 15 ML OPHT.BTL EACHEYE PRN (08:30)
[2017-01-24] MEDS ORDERED: NON-FORMULARY NEW DRUG (Diltiazem Hcl [Cartia Xt 180mg] 180 MG) PO SCH (09:00)
[2017-01-24] MEDS: ENOXAPARIN 40 MG/0.4 ML SYR SC SCH (09:03)
[2017-01-24] MEDS: busPIRone 5 MG TAB PO SCH ×2 (09:03→21:11)
[2017-01-24] MEDS: NICOTINE 21 MG/24 HR PATCH TD SCH (09:03)
[2017-01-24] MEDS: IPRATROPIUM/ALBUTEROL 3 ML DEYVIAL IH SCH ×4 (09:11→20:39)
[2017-01-24] MEDS: hydrALAZINE 20 MG/ML VIAL IVP PRN ×2 (09:51→13:05)
--- NOTE | 2017-01-24 10:53 | ASMTCMCOM ---
CM Note CM Note Notes: Chart reviewed. In rounds pt dx with panceatitis and withdrawal. Son to be proxy if needed. Supportive measures for withdrawal. NTBD at this time. CM to follow. Date Signed: 01/24/2017 10:52 AM Electronically Signed By:Briseyda Carrillo RN
[2017-01-24] MEDS: DEXMEDETOMIDINE HCL 400 MCG in NS 100 ML IV SCH ×2 (11:19→19:42)
--- NOTE | 2017-01-24 11:29 | GCON ---
[f rep st] CONSULTATION REASON FOR ADMISSION: Respiratory failure and alcohol withdrawal's. HISTORY OF PRESENT ILLNESS: The patient is a 61-year-old white male with an extensive past medical h istory of obesity, chronic obstructive pulmonary disease, obstructive sleep apnea, tobacco abuse, lef t eye vision loss, and chronic pain. He was admitted on 01/24/2017 with complaints of abdominal pain . He was subsequently diagnosed with exacerbation of COPD, as well as alcohol withdrawal's. Current ly he is somewhat agitated requiring excessive amounts of supplemental oxygen. History is mostly gle aned from the medical record. He drinks approximately 4 double scotch's daily. PAST MEDICAL HISTORY: Significant for obesity, chronic obstructive pulmonary disease, obstructive sl eep apnea, vision loss, chronic back pain, neuropathy, tobacco abuse, and alcohol abuse. SOCIAL HISTORY: He continues to be a 6-sljb-byx-week smoker. He does use marijuana. He drinks whis graves daily. PAST SURGICAL HISTORY: Open cholecystectomy and multiple back surgeries. He is a full core. PHYSICAL EXAMINATION: VITAL SIGNS: Blood pressure is 185/101, pulse is 105, respirations 27, temper ature is 36.6, oxygen saturation 89% on 16 L oxy mask. GENERAL: A moderately overweight, 61-year-ol d white male, who looks much older than stated age. HEENT: Eyes are PERRLA. EOMI. Throat exam was deferred. NECK: Supple. No cervical adenopathy. HEART: Regular rate and rhythm but somewhat tac hycardic. LUNGS: Diminished breath sounds. Significant prolongation of expiratory phase. No wheez es appreciated. ABDOMEN: Soft, nontender. Bowel sounds are present in all 4 quadrants. EXTREMITIE S: No clubbing, cyanosis, or edema. LABORATORY: White count 9.45, hemoglobin 21, hematocrit 26, platelet count 108. INR is 1.01. Sodiu m 135, potassium 4.0, chloride 103, CO2 21, BUN 11, creatinine 0.8, glucose 104. AST is elevated at 109, ALT at 130. Lipase is at 4702, amylase is 291. Urinalysis is negative. Alcohol level is less than 10. Chest x-ray showed mild hyperinflation of the lungs and increased vascular markings; otherwise clear. IMPRESSION: 1. Alcoholism. 2. Alcohol withdrawal's. 3. Chronic obstructive pulmonary disease with acute exacerbation. 4. Acute respiratory failure with hypoxemia. 5. Obstructive sleep apnea. 6. Chronic back pain. 7. Severe polycythemia. RECOMMENDATIONS: 1. Will start Precedex for his alcohol withdrawal's. 2. Will start BiPAP. 3. Frequent nebulization treatments with both albuterol and Atrovent. 4. IV steroids. 5. Oral antibiotics. 6. Will discuss possible phlebotomy. 7. Patient is full core. 8. Deep vein thrombosis and pulmonary embolism prophylaxis. 9. Stress ulcer prophylaxis. /[id number]/MODL
[2017-01-24 11:33] LABS: % IMMATURE GRANULYOCYTES 0.5 % (0.0-1.1); ABSOLUTE IMMATURE GRANULOCYTES 0.07 10^3/uL (0.00-0.10); ADD DIFF? NO; ADD MORPH? NO; ADD SCAN? NO; ATYPICAL LYMPHOCYTE FLAG 0 (0-99); FRAGMENT RBC FLAG 0 (0-99); HEMOGLOBIN 22.7 g/dL (13.7-17.5); LEFT SHIFT FLG 0 (0-99); LIPEMIA HEMOLYSIS FLAG 90 (0-99); MEAN CELL HEMOGLOBIN 35.6 pg (27.9-34.1); MEAN CELL HEMOGLOBIN CONCENTR. 35.2 g/dL (32.4-36.7); MEAN CELL VOLUME 101.1 fL (81.5-99.8); PLATELET CLUMPS FLAG 10 (0-99); PLATELET COUNT 99 10^3/uL (150-400); RED BLOOD CELL COUNT 6.37 10^6/uL (4.40-6.38); RED CELL DISTRIBUTION WIDTH 14.7 % (11.5-15.2)
[2017-01-24 11:43] LABS: HEMATOCRIT 64.4 % (40.0-51.0)
[2017-01-24] MEDS: DILTIAZEM CD 180 MG CAP PO SCH (11:44)
[2017-01-24] MEDS: GABAPENTIN 300 MG CAP PO SCH ×2 (11:44→21:12)
[2017-01-24 15:13] LABS: CALCULATED OXYGEN SATURATION 89 % (92-95); O2 CONCENTRATIION 80 % (0-100)
--- NOTE | 2017-01-24 15:35 | PDMN ---
Medical Necessity Medical necessity: est los >2 mn for severity of symptoms r/t acute pancreatitis r/t alcoholism, s/p cholecystectomy; for IV fluids & pain management, Comorbidities include obesity & COPD; per H&P & order 01/24/17.
--- NOTE | 2017-01-24 17:45 | HOSPPROG ---
Hospitalist Progress Note Assessment/Plan: 35 minutes of critical care time spent with this patient, at bedside, addressing the following issues: -called by RN this morning for CIWA score of 30, requiring 10 L high-flow oxygen -evaluated the patient, he has active bowel sounds, tenderness in the mid epigastric area without any rebound or guarding, he is tachycardic, lungs are diminished bilaterally on inspiration and expiration but on our encounter did not exhibit expiratory wheezes and bronchial breath sounds, tremulous bilateral upper extremities, patient appears visibly distressed and uncomfortable, constantly moving around non directly, although the patient is alert awake oriented x3 -patient's hypertension and tachycardia may be secondary to worsening pain or could be secondary to worsening alcohol withdrawal -empirically treat him with additional Ativan, increase Ativan dosing regiment, transfer to step-down unit for possible Precedex -continue high-flow supplemental oxygen for acute on chronic hypoxic respiratory failure, baseline oxygen requirement is 5 L nasal cannula, currently requiring 10 L high-flow -he will be evaluated by the supervisor quality control in the ICU, BiPAP if necessary -chest x-ray with increased interstitial markings, if respiratory status worsening, repeat chest imaging to rule out CHF -metabolic acidosis with elevated lactic acid on presentation and marginally decreased serum bicarbonate level, get arterial blood gas -acute pancreatitis with recent alcohol use, continue NPO status, continue IV pain medications and IV fluids Objective: Vital Signs Temp Pulse Resp BP Pulse Ox 36.9 C 98 25 H 124/85 H 91 L 01/24/17 13:59 01/24/17 16:00 01/24/17 16:00 01/24/17 16:00 01/24/17 16:00 Laboratory Results 01/24/17 11:11 01/24/17 04:43 01/23/17 01/24/17 01/25/17 05:59 05:59 05:59 Intake Total 1500 1187.8 Output Total 500 Balance 1000 1187.8 PT 13.2 SEC (12.0-15.0) 01/24/17 01:10 INR 1.01 (0.83-1.16) 01/24/17 01:10 ICD10 Worksheet Patient Problems: Problems Problem Status Onset Acute pancreatitis Acute
--- NOTE | 2017-01-24 17:59 | ECHO ---
[email or web address] [address] [address] Main: [phone] Fax: Transthoracic Echocardiogram Name: WAYNE ANDINO MR#: [id number] Study Date: 01/24/2017 Study Time: 11:40 AM Date of : 1955 Age: 61 year(s) Height: 175.3 cm (69 in.) Weight: 96.62 kg (213 lb.) BSA: 2.12 m2 Gender: Male Examination: Echo Indication: Image Quality: Technically Difficult Contrast: Requested by: Rui Constantino BP: 151 mmHg/84 mmHg Heart Rate: Rhythm: Indication: Procedure Staff Supervisor Facepiece Line: Edith Rice Physician: Marquise Sanon Requesting Provider: Conclusions: Normal size left ventricle. Mild concentric LV hypertrophy. Normal global systolic LV function. EF is 56 %. Grade 1 diastolic dysfunction (abnormal relaxation). Measurements: Chambers Valvular Assessment AV/MV Valvular Assessment TV/PV Normal Normal Normal Name Value Range Name Value Range Name Value Range Ao Jyoti (MM): 3.6 cm (2.2 cm-3.7 AV Vmax: 1.03 m/s (1 m/s-1.7 PV Vmax: 0.91 m/s (0.6 m/s-0.9 cm) m/s) m/s) LVDd (2D): 4.7 cm (4.2 cm-5.9 AV maxP mmHg ( - ) PV PGmax: 3 mmHg ( - ) cm) LVOT Vmax: 1.00 m/s (0.7 m/s-1.1 LVDs (2D): 3.3 cm (2.1 cm-4 m/s) cm) MV E Vmax: 0.69 m/s ( - ) LVEF (2D): 56 (>=54 %) MV A Vmax: 1.10 m/s ( - ) MV E/A: 0.63 ( - ) Continued Measurements: Chambers Name Value LADs Lon.0 cm LA Area: 16.4 cm2 LA Volume: 35 ml LA Volume Index: 16.5 ml/m2 Additional Vessels Patient: WAYNE ANDINO Study Date: 01/24/2017 Page 1 of 2 11:40 AM Name Value Ao Ascendin.1 cm Findings: Left Ventricle: Normal size left ventricle. Mild concentric LV hypertrophy. Normal global systolic LV function. EF is 56 %. Grade 1 diastolic dysfunction (abnormal relaxation). Right Ventricle: Normal size right ventricle. Left Atrium: The left atrium is normal in size. Right Atrium: The right atrium is normal in size. Mitral Valve: The mitral valve is normal in appearance and function. There is no mitral valve regurgitation. There is Mild posterior annulus calcification. Aortic Valve: The aortic valve is normal in appearance and function. There is no aortic valve regurgitation. Tricuspid Valve: The tricuspid valve is normal in appearance and function. There is no tricuspid valve regurgitation. Pulmonic Valve: Pulmonary valve not well visualized. Aorta: The aorta is normal. Pericardium: Trivial anterior pericardial effusion. There is pericardial fat. (No Signature Object) Patient: WAYNE ANDINO Study Date: 01/24/2017 Page 2 of 2 11:40 AM [id number]
[2017-01-24] MEDS: MIRTAZAPINE 30 MG TAB PO SCH (21:12)
[2017-01-25] MEDS: LORazepam 2 MG/ML INJ IVP PRN ×8 (01:29→14:59)
[2017-01-25] MEDS: DEXMEDETOMIDINE HCL 400 MCG in NS 100 ML IV SCH ×3 (01:29→09:11)
[2017-01-25] MEDS: NS 1,000 ML IV SCH ×2 (04:47→17:34)
[2017-01-25] MEDS: IPRATROPIUM/ALBUTEROL 3 ML DEYVIAL IH SCH ×2 (05:00→08:35)
[2017-01-25 05:37] LABS: BASE EXCESS -2.8 mEq/L (-2.5-2.5); BICARBONATE 21 mEq/L (22-26); BIPAP YES; EXP PRESSURE 6; INSP PRESSURE 16; MEASURED OXYGEN SATURATION 94 % (92-95); O2 CONCENTRATIION 80 % (0-100); P/F RATIO 95 RATIO; PCO2 37 mmHg (34-38); PO2 76 mmHg (65-75); TCO2 22 mEq/L (23-27)
[2017-01-25 05:40] LABS: % IMMATURE GRANULYOCYTES 0.8 % (0.0-1.1); ABSOLUTE IMMATURE GRANULOCYTES 0.12 10^3/uL (0.00-0.10); ADD DIFF? NO; ADD MORPH? NO; ADD SCAN? NO; ATYPICAL LYMPHOCYTE FLAG 0 (0-99); FRAGMENT RBC FLAG 0 (0-99); LEFT SHIFT FLG 40 (0-99); LIPEMIA HEMOLYSIS FLAG 90 (0-99); MEAN CELL HEMOGLOBIN 35.3 pg (27.9-34.1); MEAN CELL HEMOGLOBIN CONCENTR. 34.9 g/dL (32.4-36.7); MEAN CELL VOLUME 101.2 fL (81.5-99.8); MEAN PLATELET VOLUME 12.5 fL (8.7-11.7); PLATELET CLUMPS FLAG 0 (0-99); PLATELET COUNT 75 10^3/uL (150-400); RED BLOOD CELL COUNT 5.97 10^6/uL (4.40-6.38); RED CELL DISTRIBUTION WIDTH 14.3 % (11.5-15.2)
[2017-01-25 05:44] LABS: HEMATOCRIT 60.4 % (40.0-51.0); HEMOGLOBIN 21.1 g/dL (13.7-17.5)
[2017-01-25 05:48] LABS: ALANINE AMINOTRANSFERASE 65 IU/L (21-72); ALBUMIN 2.8 g/dL (3.5-5.0); ALKALINE PHOSPHATASE 72 IU/L (38-126); ANION GAP 6 mEq/L (8-16); ASPARTATE AMINOTRANSFERASE 31 IU/L (17-59); BILIRUBIN,TOTAL 1.7 mg/dL (0.1-1.4); CALCIUM 10.2 mg/dL (8.5-10.4); CARBON DIOXIDE 20 mEq/l (22-31); CHLORIDE 108 mEq/L (97-110); CREATININE 0.8 mg/dL (0.7-1.3); GLOMERULAR FILTRATION RATE > 60; GLUCOSE 145 mg/dL (70-100); POTASSIUM 4.3 mEq/L (3.5-5.2); SODIUM 134 mEq/L (134-144); TOTAL PROTEIN 5.1 g/dL (6.3-8.2)
[2017-01-25] MEDS ORDERED: LORazepam 2 MG/ML INJ IVP PRN (08:18)
[2017-01-25] MEDS ORDERED: FUROSEMIDE 20 MG/2 ML VIAL IVP ONE ×2 (08:22→09:10)
--- NOTE | 2017-01-25 08:22 | HOSPPROG ---
Hospitalist Progress Note Assessment/Plan: # etOH w/d - severe, very agitated - precedex, sched ativan, thiamine # pancreatitis - severe, d/t etOH - cont supportive care # acute on chronic resp failure - 5L O2 baseline, now on bipap 80% fiO2 - lasix 20 IV x 1, start solu-medrol - may need intubation # acute encephalopathy - d/t etOH, pancreatitis # COPD - nebs sched # erythrocythemia - worse than previous, likely hypoxia + hemoconcentration; would not phlebotomize now # mild hepatitis - better # leucocytosis - no clear infection, hold abx for now # thrombocytopenia # diastolic dysfunction 35 minutes floor/bedside critical care time Subjective: very agitated; confused; seen with his Objective: Vital Signs Temp Pulse Resp BP Pulse Ox 36.9 C 91 28 H 120/79 94 01/25/17 07:21 01/25/17 07:21 01/25/17 07:21 01/25/17 07:21 01/25/17 07:21 Laboratory Results 01/25/17 05:19 01/25/17 05:19 01/24/17 01/25/17 01/26/17 05:59 05:59 05:59 Intake Total 1500 3098.8 Output Total 500 775 Balance 1000 2323.8 PT 13.2 SEC (12.0-15.0) 01/24/17 01:10 INR 1.01 (0.83-1.16) 01/24/17 01:10 - Physical Exam Constitutional: obese, unkempt, other (agitated) Cardiovascular: no murmur, rub, or gallop, tachycardia Respiratory: other (difficult exam; wearing bipap) Gastrointestinal: other (soft, grimces to plpation), No guarding, No rebound Genitourinary: escobar in urethra ICD10 Worksheet Patient Problems: Problems Problem Status Onset Acute pancreatitis Acute
[2017-01-25] MEDS ORDERED: FUROSEMIDE 20 MG/2 ML VIAL ONE (08:42)
[2017-01-25] MEDS ORDERED: fentaNYL 100 MCG/2 ML INJ ONE (08:50)
[2017-01-25] MEDS ORDERED: MIDAZOLAM 2 MG/2 ML VIAL ONE (08:50)
[2017-01-25] MEDS ORDERED: PROPOFOL/EMULSION 1,000 MG/100 ML BOTTLE IV ONE (09:18)
[2017-01-25] MEDS: PROPOFOL/EMULSION 100 ML IV SCH ×2 (09:30→13:55)
[2017-01-25] MEDS ORDERED: SUCCINYLCHOLINE CHLORIDE*ANESTHESIA ONLY*200 MG/10 ML SYR IVP ONE ×2 (09:31→11:15)
[2017-01-25] MEDS ORDERED: ALTEPLASE 2 MG VIAL IVP PRN (09:34)
[2017-01-25] MEDS: DILTIAZEM CD 180 MG CAP PO SCH (09:38)
--- NOTE | 2017-01-25 09:41 | PDINTPN ---
Computer Programmer Chief Progress Note Assessment/Plan: Assessment/Plan: * Acute alcohol withdrawal-continue CIWA protocol * Acute respiratory failure secondary to alcohol withdrawal and chronic obstructive pulmonary disease -will intubate and placed on mechanical ventilation * Alcoholism * Obstructive sleep apnea * Polycythemia * Chronic obstructive pulmonary disease- -add nebulized treatments -start IV steroids * Sedation-will increase with the patient * VT prophylaxis * Stress ulcer prophylaxis * Nutrition-none. -will start tube feeds today 35 minutes of critical care time spent with patient. Subjective: Obtunded and very agitated. Objective: Vital Signs Temp Pulse Resp BP Pulse Ox 36.9 C 99 37 H 149/94 H 91 L 01/25/17 07:21 01/25/17 09:12 01/25/17 09:12 01/25/17 09:12 01/25/17 09:12 Laboratory Results 01/25/17 05:19 01/25/17 05:19 01/24/17 01/25/17 01/26/17 05:59 05:59 05:59 Intake Total 1500 3098.8 Output Total 500 775 Balance 1000 2323.8 PT 13.2 SEC (12.0-15.0) 01/24/17 01:10 INR 1.01 (0.83-1.16) 01/24/17 01:10 Chest x-ray-read by myself. Smallish lungs with pulmonary edema mild cardiomegaly Physical Exam - Physical Exam General Appearance: other (Agitated), No alert EENT: PERRL/EOMI, normal ENT inspection Neck: non-tender, full range of motion, supple, normal inspection Respiratory: respiratory distress, accessory muscle use, other (Tachypneic), No wheezing Cardiac/Chest: normal peripheral pulses, regular rate, rhythm, tachycardia Peripheral Pulses: 2+: carotid (R), carotid (L), femoral (R), femoral (L), dorsalis-pedis (R), dorsalis-pedis (L) Abdomen: normal bowel sounds, non-tender, soft Male Genitalia: deferred Rectal: deferred Skin: normal color, warm/dry Extremities: normal range of motion Neuro/Psych: No alert ICD10 Worksheet Patient Problems: Problems Problem Status Onset Acute pancreatitis Acute
--- NOTE | 2017-01-25 10:19 | GPN ---
[f rep st] PROCEDURE NOTE REASON FOR INTUBATION: Acute respiratory failure secondary to agitation and COPD. ANESTHESIA GIVEN: He received Versed 2 mg and succinylcholine 80 mg. Performed in the intensive care unit care unit with continuous blood pressure, EKG, and pulse ox abram martínez. PROCEDURE: Via GlideScope, patient was intubated with a #8 endotracheal tube and then taped in at 24 cm at the lip. Tracheal position was confirmed via capnograph. Patient tolerated the tolerated pro cedure well. There were no apparent complications. Portable chest x-ray has been called for. /[id number]/MODL
[2017-01-25] MEDS: methylPREDNISolone SOD SUCC 40 MG/ML VIAL IVP SCH ×3 (10:37→17:33)
[2017-01-25] MEDS: ENOXAPARIN 40 MG/0.4 ML SYR SC SCH (10:37)
[2017-01-25] MEDS: GABAPENTIN 300 MG CAP PO SCH ×2 (10:38→20:30)
[2017-01-25] MEDS: NICOTINE 21 MG/24 HR PATCH TD SCH (10:39)
[2017-01-25] MEDS: busPIRone 5 MG TAB PO SCH ×2 (10:39→20:29)
[2017-01-25] MEDS: LORazepam 2 MG/ML INJ IVP SCH ×3 (10:46→21:39)
[2017-01-25] MEDS: THIAMINE HCL 500 MG in NS 100 ML IV SCH (10:53)
[2017-01-25] MEDS ORDERED: fentaNYL 100 MCG/2 ML INJ IVP ONE (11:15)
[2017-01-25] MEDS ORDERED: MIDAZOLAM 2 MG/2 ML VIAL IVP ONE (11:15)
[2017-01-25] MEDS: fentaNYL/NACL 100 ML IV SCH (11:34)
[2017-01-25] MEDS ORDERED: DILTIAZEM 30 MG TAB PO SCH (12:00)
[2017-01-25] MEDS: ALBUTEROL 200 PUFFS/18 GM MDI IH SCH ×3 (12:06→20:07)
[2017-01-25] MEDS ORDERED: THIAMINE HCL 500 MG in NS 100 ML IV SCH (12:46)
[2017-01-25 14:48] LABS: BASE EXCESS -3.1 mEq/L (-2.5-2.5); BICARBONATE 20 mEq/L (22-26); MEASURED OXYGEN SATURATION 93 % (92-95); PCO2 34 mmHg (34-38); PO2 68 mmHg (65-75); TCO2 21 mEq/L (23-27)
[2017-01-25 14:53] LABS: END TIDAL CO2 39; O2 CONCENTRATIION 100 % (0-100); P/F RATIO 68 RATIO; PATIENT RATE 39
[2017-01-25 14:54] LABS: PRESSURE SUPPORT 10
[2017-01-25] MEDS: DILTIAZEM 30 MG TAB PO SCH ×2 (17:34→20:30)
--- NOTE | 2017-01-25 17:40 | ASMTCMCOM ---
CM Note CM Note Notes: Reviewed chart re: d/c poc, pt's progress. Per ICU rounds, pt intubated. Pt w/ hx of smoking, sleep apnea, COPD. New PICC line to be placed today. CIWA score 35. Severe ETOH w/d, pancreatitis. Discharge needs remain TBD at this time. CM will cont to follow. Date Signed: 01/25/2017 05:39 PM Electronically Signed By:Cassie Weinberg RN
[2017-01-25] MEDS: ACETAMINOPHEN 650 MG SUPP PR PRN (20:08)
[2017-01-25] MEDS: CHLORHEXIDINE GLUCONATE 15 ML UDL PO SCH (20:08)
[2017-01-25] MEDS: MIRTAZAPINE 30 MG TAB PO SCH (20:29)
[2017-01-25] MEDS: FAMOTIDINE 20 MG/NACL 50 ML IV SCH (20:30)
[2017-01-26] MEDS: methylPREDNISolone SOD SUCC 40 MG/ML VIAL IVP SCH ×5 (00:13→23:54)
[2017-01-26] MEDS ORDERED: DILTIAZEM 125 MG in D5W 125 ML IV SCH (00:15)
[2017-01-26] MEDS ORDERED: DILTIAZEM 25 MG/5 ML VIAL IVP ONE (00:17)
[2017-01-26] MEDS ORDERED: DILTIAZEM 25 MG/5 ML VIAL IVP SCH (00:30)
[2017-01-26] MEDS ORDERED: DILTIAZEM 30 MG TAB PO SCH (01:00)
[2017-01-26] MEDS: DILTIAZEM 30 MG TAB PO SCH ×3 (01:04→09:44)
[2017-01-26] MEDS: DILTIAZEM 125 MG in D5W 125 ML IV SCH ×2 (03:42→12:57)
[2017-01-26] MEDS: LORazepam 2 MG/ML INJ IVP SCH ×4 (03:42→21:15)
[2017-01-26 03:55] LABS: % IMMATURE GRANULYOCYTES 0.4 % (0.0-1.1); ABSOLUTE IMMATURE GRANULOCYTES 0.07 10^3/uL (0.00-0.10); ADD DIFF? NO; ADD MORPH? NO; ADD SCAN? NO; ATYPICAL LYMPHOCYTE FLAG 0 (0-99); FRAGMENT RBC FLAG 0 (0-99); HEMATOCRIT 55.7 % (40.0-51.0); HEMOGLOBIN 19.4 g/dL (13.7-17.5); LEFT SHIFT FLG 30 (0-99); LIPEMIA HEMOLYSIS FLAG 90 (0-99); MEAN CELL HEMOGLOBIN 35.9 pg (27.9-34.1); MEAN CELL HEMOGLOBIN CONCENTR. 34.8 g/dL (32.4-36.7); MEAN CELL VOLUME 103.1 fL (81.5-99.8); MEAN PLATELET VOLUME 13.2 fL (8.7-11.7); PLATELET CLUMPS FLAG 20 (0-99); PLATELET COUNT 82 10^3/uL (150-400); RED CELL DISTRIBUTION WIDTH 14.6 % (11.5-15.2)
[2017-01-26 04:07] LABS: ALANINE AMINOTRANSFERASE 51 IU/L (21-72); ALBUMIN 2.6 g/dL (3.5-5.0); ALKALINE PHOSPHATASE 83 IU/L (38-126); ANION GAP 6 mEq/L (8-16); ASPARTATE AMINOTRANSFERASE 26 IU/L (17-59); CALCIUM 10.7 mg/dL (8.5-10.4); CARBON DIOXIDE 23 mEq/l (22-31); CHLORIDE 106 mEq/L (97-110); GLOMERULAR FILTRATION RATE > 60; GLUCOSE 202 mg/dL (70-100); POTASSIUM 4.7 mEq/L (3.5-5.2); SODIUM 135 mEq/L (134-144)
[2017-01-26] MEDS: ALBUTEROL 200 PUFFS/18 GM MDI IH SCH ×7 (04:15→23:33)
[2017-01-26] MEDS: ACETAMINOPHEN 650 MG SUPP PR PRN (04:25)
[2017-01-26] MEDS: NS 1,000 ML IV SCH ×2 (04:26→20:32)
[2017-01-26 06:05] LABS: BASE EXCESS -2.1 mEq/L (-2.5-2.5); BICARBONATE 22 mEq/L (22-26); MEASURED OXYGEN SATURATION 94 % (92-95); PCO2 41 mmHg (34-38); PO2 80 mmHg (65-75); TCO2 24 mEq/L (23-27)
[2017-01-26 06:06] LABS: END TIDAL CO2 43; O2 CONCENTRATIION 100 % (0-100); P/F RATIO 80 RATIO; PATIENT RATE 22; PRESSURE SUPPORT 10; SIMV YES
[2017-01-26] MEDS: fentaNYL/NACL 100 ML IV SCH (07:47)
[2017-01-26] MEDS: FAMOTIDINE 20 MG/NACL 50 ML IV SCH ×2 (07:48→20:07)
[2017-01-26] MEDS: CHLORHEXIDINE GLUCONATE 15 ML UDL PO SCH ×2 (08:00→20:08)
[2017-01-26] MEDS ORDERED: ALBUMIN 5% 500 ML IV ONE (08:23)
[2017-01-26] MEDS ORDERED: NS 1,000 ML IV ONE (08:43)
[2017-01-26] MEDS ORDERED: IOPAMIDOL (ISOVUE 370) 100 ML BTL IV ONE (09:00)
[2017-01-26] MEDS: ENOXAPARIN 40 MG/0.4 ML SYR SC SCH (09:00)
[2017-01-26] MEDS: NICOTINE 21 MG/24 HR PATCH TD SCH (09:03)
--- NOTE | 2017-01-26 09:05 | HOSPPROG ---
Hospitalist Progress Note Assessment/Plan: # acute on chronic resp failure - 5L O2 baseline, now intubated on high O2 needs - check CTA since he will be scanned anyway as below # SIRS (tachycardia, leukocytosis, fever) - need to look for source; check CT abd, CT chest # mild uremia - will hydrate well prior to CT; high risk giving contrast, but need to quickly identify a source # etOH w/d - severe, better controlled on propofol and ativan - precedex, sched ativan, propofol, thiamine # pancreatitis - severe, d/t etOH - cont supportive care # acute encephalopathy - d/t etOH, pancreatitis # COPD - nebs sched # erythrocythemia - worse than previous, likely hypoxia + hemoconcentration; s/ p phlebotomy # mild hepatitis - better # leucocytosis - no clear infection, hold abx for now # thrombocytopenia # diastolic dysfunction 40 minutes floor/bedside critical care time Subjective: tachycardic overnight, started on diltiazem; fever overnight Objective: Vital Signs Temp Pulse Resp BP Pulse Ox 38.0 C 100 22 H 123/65 H 90 L 01/26/17 07:00 01/26/17 07:00 01/26/17 07:00 01/26/17 07:00 01/26/17 07:00 Laboratory Results 01/26/17 03:35 01/26/17 03:35 01/25/17 01/26/17 01/27/17 05:59 05:59 05:59 Intake Total 3098.8 2609.4 Output Total 775 2565 Balance 2323.8 44.4 PT 13.2 SEC (12.0-15.0) 01/24/17 01:10 INR 1.01 (0.83-1.16) 01/24/17 01:10 - Physical Exam Constitutional: other (intubated, sedated; rouses to voice) Cardiovascular: regular rate and rhythym, no murmur, rub, or gallop Respiratory: other (intubated, coarse BS) Gastrointestinal: other (grimaces to palpation) ICD10 Worksheet Patient Problems: Problems Problem Status Onset Acute pancreatitis Acute
--- NOTE | 2017-01-26 09:12 | PDINTPN ---
Medical Care Manager Progress Note Assessment/Plan: Assessment/Plan: * Acute alcohol withdrawal-continue CIWA protocol * Acute respiratory failure secondary to alcohol withdrawal and chronic obstructive pulmonary disease -stable on mechanical ventilation. Not weanable at this time * Alcoholism * Obstructive sleep apnea * Polycythemia-he improved after phlebotomy * Chronic obstructive pulmonary disease- -add nebulized treatments -start IV steroids * Fever-unclear source at this time. Agree with CT scan of abdomen pelvis and chest. * Sedation-will increase with the patient * VT prophylaxis * Stress ulcer prophylaxis * Nutrition-none. -will start tube feeds today 45 minutes of critical care time spent with patient. Case discussed with Nursing and Respiratory therapy Subjective: Sedated on mechanical ventilation Objective: Vital Signs Temp Pulse Resp BP Pulse Ox 38.0 C 95 22 H 123/65 H 91 L 01/26/17 07:00 01/26/17 08:39 01/26/17 08:39 01/26/17 07:00 01/26/17 08:39 Laboratory Results 01/26/17 03:35 01/26/17 03:35 01/25/17 01/26/17 01/27/17 05:59 05:59 05:59 Intake Total 3098.8 2609.4 Output Total 775 2565 Balance 2323.8 44.4 PT 13.2 SEC (12.0-15.0) 01/24/17 01:10 INR 1.01 (0.83-1.16) 01/24/17 01:10 Chest [id number]-ocaxobcv by myself. Endotracheal tube in good position. Central line in good position. Possible right basilar infiltrate. - Time Spent With Patient Time Spent With Patient: 45 minutes of critical care time Physical Exam - Physical Exam General Appearance: other (Sedated), No alert EENT: PERRL/EOMI, ET tube Neck: non-tender, full range of motion, supple, normal inspection Respiratory: crackles (Bibasilar), No respiratory distress, No wheezing Cardiac/Chest: normal peripheral pulses, regular rate, rhythm, systolic murmur Peripheral Pulses: 2+: carotid (R), carotid (L), femoral (R), femoral (L), dorsalis-pedis (R), dorsalis-pedis (L) Abdomen: non-tender, soft, No normal bowel sounds (Diminished) Male Genitalia: deferred Rectal: deferred Skin: normal color, warm/dry Neuro/Psych: No alert ICD10 Worksheet Patient Problems: Problems Problem Status Onset Acute pancreatitis Acute
[2017-01-26] MEDS: busPIRone 5 MG TAB PO SCH ×2 (09:44→20:06)
[2017-01-26] MEDS: GABAPENTIN 300 MG CAP PO SCH ×2 (09:44→20:06)
[2017-01-26] MEDS: PROPOFOL/EMULSION 100 ML IV SCH (10:08)
[2017-01-26 10:39] LABS: PROCALCITONIN 1.79 ng/mL (0.02-0.10)
[2017-01-26] MEDS ORDERED: LIDOCAINE 1% 300 MG/30 ML SDV MISC ONE (10:47)
[2017-01-26] MEDS ORDERED: LIDOCAINE 2% JELLY 5 ML TUBE TP ONE (10:47)
[2017-01-26] MEDS: THIAMINE HCL 500 MG in NS 100 ML IV SCH (11:10)
[2017-01-26] MEDS: ERTAPENEM 1 GM in NS 100 ML IV SCH (13:08)
--- NOTE | 2017-01-26 14:54 | WOCRNPDOC ---
TIMO Advanced Assessment Note - Skin Integrity Problem, Advanced Assess Left Medial Buttock Dressing Type: Allevyn Life Dressing Description: Clean/Dry, Intact Integumentary Issue Intervention: Visualized Under Dressing Kay Wound Tissue: Blanching, Intact Kay Wound Swelling: None Wound Bed Color: [place] Site Odor: None Site Measurement - Head-to-Toe Length X Width X Depth (cm): 0.3 cm wei x 0 Skin Integrity Problem Comment: Site noted in RN request for Wound Consult as "Present on Admission." Visualized a small, intact, slightly discolored "feature " at medial left buttock, which has the appearance more of a " donnie" rather than a pressure injury, due to both its slightly darker pigmented appearance as well as its location, away from any adjacent bony prominence. Staff has initiated appropritate proactive measures, including placement of a protective dressing, turn schedule, and TAPS in room, available when patient use is appropriate (is currently on non-violent restraint care to prevent inadvertent removal of trach or tubing). TOMMY Powell assisted with care.
--- NOTE | 2017-01-26 15:45 | GPN ---
[f rep st] PROCEDURE NOTE PROCEDURE: Fiberoptic bronchoscopy. INDICATION: New pneumonia. ANESTHESIA: He is currently sedated and on mechanical ventilation. He received 1% lidocaine topical ly. PROCEDURE IN DETAIL: After informed consent was obtained and a time-out was performed, the bronchosc ope was entered through a #8 endotracheal tube. Distal trachea and sujit were visualized and showed no endobronchial lesions and normal-appearing mucosa. The bronchoscope was in the left lung. Left upper lobe, lingula, left lower lobe including subsegmen ts, were subsequently visualized and showed no endobronchial lesions and normal-appearing mucosa. The bronchoscope was in the right lung. Right upper lobe and right middle lobe were visualized and s howed no endobronchial lesions and normal-appearing mucosa. The bronchoscope was inserted into the right lower lobe. There was a minimal amount of tannish secre tions present in the right lower lobe. Bronchoalveolar lavage was taken in the right lower lobe. Th is was sent for C and S and fungal cultures. The patient tolerated the procedure well. There were no apparent complications. /[id number]/MODL
[2017-01-26] MEDS: MIRTAZAPINE 30 MG TAB PO SCH (20:06)
[2017-01-27] MEDS: PROPOFOL/EMULSION 100 ML IV SCH ×2 (02:47→14:39)
[2017-01-27] MEDS: DILTIAZEM 125 MG in D5W 125 ML IV SCH (02:54)
[2017-01-27] MEDS: LORazepam 2 MG/ML INJ IVP SCH ×4 (03:12→22:09)
[2017-01-27] MEDS: fentaNYL/NACL 100 ML IV SCH ×3 (03:12→23:14)
[2017-01-27 04:06] LABS: % IMMATURE GRANULYOCYTES 0.5 % (0.0-1.1); ABSOLUTE IMMATURE GRANULOCYTES 0.06 10^3/uL (0.00-0.10); ADD DIFF? NO; ADD MORPH? NO; ADD SCAN? NO; ATYPICAL LYMPHOCYTE FLAG 0 (0-99); FRAGMENT RBC FLAG 0 (0-99); LEFT SHIFT FLG 10 (0-99); LIPEMIA HEMOLYSIS FLAG 90 (0-99); MEAN CELL HEMOGLOBIN 35.6 pg (27.9-34.1); MEAN CELL VOLUME 104.4 fL (81.5-99.8); MEAN PLATELET VOLUME 12.7 fL (8.7-11.7); PLATELET CLUMPS FLAG 10 (0-99); PLATELET COUNT 77 10^3/uL (150-400); RED CELL DISTRIBUTION WIDTH 14.9 % (11.5-15.2)
[2017-01-27] MEDS: ALBUTEROL 200 PUFFS/18 GM MDI IH SCH ×5 (04:07→19:49)
[2017-01-27 04:18] LABS: ALANINE AMINOTRANSFERASE 53 IU/L (21-72); ALBUMIN 2.6 g/dL (3.5-5.0); ALKALINE PHOSPHATASE 66 IU/L (38-126); ANION GAP 6 mEq/L (8-16); ASPARTATE AMINOTRANSFERASE 24 IU/L (17-59); BILIRUBIN,TOTAL 1.5 mg/dL (0.1-1.4); CALCIUM 10.6 mg/dL (8.5-10.4); CARBON DIOXIDE 24 mEq/l (22-31); CHLORIDE 111 mEq/L (97-110); CREATININE 0.7 mg/dL (0.7-1.3); GLOMERULAR FILTRATION RATE > 60; GLUCOSE 176 mg/dL (70-100); MAGNESIUM 2.1 mg/dL (1.6-2.3); POTASSIUM 4.2 mEq/L (3.5-5.2); SODIUM 141 mEq/L (134-144); TOTAL PROTEIN 4.7 g/dL (6.3-8.2)
[2017-01-27 05:42] LABS: BASE EXCESS -0.6 mEq/L (-2.5-2.5); BICARBONATE 23 mEq/L (22-26); MEASURED OXYGEN SATURATION 93 % (92-95); PCO2 38 mmHg (34-38); PO2 70 mmHg (65-75); TCO2 24 mEq/L (23-27)
[2017-01-27 05:44] LABS: SIMV YES
[2017-01-27 05:45] LABS: END TIDAL CO2 41; O2 CONCENTRATIION 100 % (0-100); P/F RATIO 70 RATIO; PATIENT RATE 22; PRESSURE SUPPORT 10
[2017-01-27] MEDS: methylPREDNISolone SOD SUCC 40 MG/ML VIAL IVP SCH ×3 (06:17→17:31)
[2017-01-27] MEDS: CHLORHEXIDINE GLUCONATE 15 ML UDL PO SCH ×2 (08:20→22:09)
[2017-01-27] MEDS: FAMOTIDINE 20 MG/NACL 50 ML IV SCH ×2 (08:21→22:09)
[2017-01-27] MEDS: ENOXAPARIN 40 MG/0.4 ML SYR SC SCH (08:26)
[2017-01-27] MEDS: NICOTINE 21 MG/24 HR PATCH TD SCH (08:27)
[2017-01-27] MEDS: ERTAPENEM 1 GM in NS 100 ML IV SCH (08:29)
[2017-01-27] MEDS: GABAPENTIN 300 MG CAP PO SCH ×2 (08:29→22:06)
[2017-01-27] MEDS: busPIRone 5 MG TAB PO SCH ×2 (08:29→22:06)
[2017-01-27] MEDS ORDERED: PROTOCOL K PHOSPHATE 1 DOSE IV PRN (08:33)
--- NOTE | 2017-01-27 08:42 | HOSPPROG ---
Hospitalist Progress Note Assessment/Plan: # acute on chronic resp failure - 5L O2 baseline, severe COPD; now intubated on high O2 needs # sepsis (tachycardia, leukocytosis, fever) - possibly d/t aspiration pna # suspected aspiration pna - invanz (also covers potential abd sources) # etOH w/d - severe, although now sedate on propofol and ativan - sched ativan, propofol, thiamine # intermittent a-fib - now sinus for about 24 hours - CHADSVASC2=0 or 1 - consider an aspirin when taking PO - will try to wean dilt gtt today # pancreatitis - severe, d/t etOH # acute encephalopathy - d/t etOH, pancreatitis # COPD - nebs sched # erythrocythemia - better today; s/p phlebotomy 01/25 # mild hepatitis - resolved # thrombocytopenia # diastolic dysfunction 40 minutes floor/bedside critical care time Subjective: no tachycardia overnight; sedated Objective: Vital Signs Temp Pulse Resp BP Pulse Ox 37.5 C 90 22 H 126/74 H 94 01/27/17 08:00 01/27/17 08:00 01/27/17 08:00 01/27/17 08:00 01/27/17 08:00 Microbiology 01/26/17 12:00 Gram Stain - Final Lung Right Lower Lobe - Bronchial Washings Laboratory Results 01/27/17 03:19 01/27/17 03:19 01/26/17 01/27/17 01/28/17 05:59 05:59 05:59 Intake Total 2609.4 4890.7 Output Total 2565 1545 75 Balance 44.4 3345.7 -75 PT 13.2 SEC (12.0-15.0) 01/24/17 01:10 INR 1.01 (0.83-1.16) 01/24/17 01:10 - Physical Exam Constitutional: no apparent distress, appears nourished Cardiovascular: regular rate and rhythym, no murmur, rub, or gallop Respiratory: no respiratory distress, no rales or rhonchi, clear to auscultation Gastrointestinal: other (very faint BS; less grimace with palpation) ICD10 Worksheet Patient Problems: Problems Problem Status Onset Acute pancreatitis Acute
[2017-01-27] MEDS ORDERED: THIAMINE HCL 100 MG TAB PO SCH (09:00)
--- NOTE | 2017-01-27 09:43 | PDINTPN ---
Navy Material Inspector Progress Note Assessment/Plan: Assessment: Assessment/Plan: * Acute alcohol withdrawal-continue CIWA protocol * Acute respiratory failure secondary to alcohol withdrawal, chronic obstructive pulmonary disease, pancreatitis, and bibasilar pneumonia -worsening oxygenation, likely multifactorial * Alcoholism. Has been drinking heavily for at least a month * Obstructive sleep apnea; Has CPAP (or possibly ASV), but had been non- compliant, using it only a few times/week. Has not had follow-up to assess efficacy of treatment in years. * Polycythemia-he improved after phlebotomy * Chronic obstructive pulmonary disease- Has been smoking>1 ppd recently -add nebulized treatments -start IV steroids * Fever-Likely due to pneumonia, pancreatitis. Afebrile x 24 hours. * Sedation-currently well sedated, may be able to decrease. * VT prophylaxis * Stress ulcer prophylaxis * Nutrition-none except Propofol Plan: Remains unstable, with hypoxemia on 100% oxygen. Will increase PEEP. Increase bed rotation. If still hypoxemic, may try prone ventilation. Follow lipase, consider starting TFs if pancreatitis continues to improve, as I expect it will. Will try to wean sedation. D/W RT, RN, family. 45 minutes CC time 01/27/17 11:01 Objective: Vital Signs Temp Pulse Resp BP Pulse Ox 37.5 C 87 22 H 126/74 H 95 01/27/17 08:00 01/27/17 08:10 01/27/17 08:00 01/27/17 08:00 01/27/17 08:10 Microbiology 01/26/17 12:00 Gram Stain - Final Lung Right Lower Lobe - Bronchial Washings Laboratory Results 01/27/17 03:19 01/27/17 03:19 01/26/17 01/27/17 01/28/17 05:59 05:59 05:59 Intake Total 2609.4 4890.7 Output Total 2565 1545 75 Balance 44.4 3345.7 -75 PT 13.2 SEC (12.0-15.0) 01/24/17 01:10 INR 1.01 (0.83-1.16) 01/24/17 01:10 CXR: Stable bibasilar infiltrates. Images reviewed. ICD10 Worksheet Patient Problems: Problems Problem Status Onset Acute pancreatitis Acute
[2017-01-27] MEDS: NS 1,000 ML IV SCH (10:00)
[2017-01-27] MEDS: THIAMINE HCL 100 MG in NS 100 ML IV SCH (10:03)
[2017-01-27] MEDS ORDERED: LIDOCAINE 2% JELLY 5 ML TUBE TP ONE (10:43)
[2017-01-27] MEDS ORDERED: LIDOCAINE 1% 300 MG/30 ML SDV MISC ONE (10:43)
[2017-01-27] MEDS ORDERED: BENZOCAINE UNIT DOSE SPRAY HURRICAINE MM ONE (10:43)
[2017-01-27] MEDS ORDERED: K PHOS 10 MMOL in D5W 250 ML IV ONE (12:00)
[2017-01-27] MEDS: MIRTAZAPINE 30 MG TAB PO SCH (22:06)
[2017-01-28] MEDS: ALBUTEROL 200 PUFFS/18 GM MDI IH SCH ×6 (00:04→20:25)
[2017-01-28] MEDS: methylPREDNISolone SOD SUCC 40 MG/ML VIAL IVP SCH ×4 (00:37→18:09)
[2017-01-28] MEDS: NS 1,000 ML IV SCH ×2 (00:48→14:59)
[2017-01-28] MEDS: PROPOFOL/EMULSION 100 ML IV SCH ×3 (02:39→23:57)
[2017-01-28] MEDS: LORazepam 2 MG/ML INJ IVP SCH ×3 (04:14→15:57)
[2017-01-28 04:48] LABS: % IMMATURE GRANULYOCYTES 0.7 % (0.0-1.1); ABSOLUTE IMMATURE GRANULOCYTES 0.07 10^3/uL (0.00-0.10); ADD DIFF? NO; ADD MORPH? NO; ADD SCAN? NO; ATYPICAL LYMPHOCYTE FLAG 20 (0-99); FRAGMENT RBC FLAG 0 (0-99); HEMATOCRIT 48.1 % (40.0-51.0); HEMOGLOBIN 16.1 g/dL (13.7-17.5); LEFT SHIFT FLG 10 (0-99); LIPEMIA HEMOLYSIS FLAG 80 (0-99); MEAN CELL HEMOGLOBIN CONCENTR. 33.5 g/dL (32.4-36.7); MEAN CELL VOLUME 104.6 fL (81.5-99.8); MEAN PLATELET VOLUME 12.5 fL (8.7-11.7); PLATELET CLUMPS FLAG 20 (0-99); PLATELET COUNT 96 10^3/uL (150-400); RED CELL DISTRIBUTION WIDTH 14.8 % (11.5-15.2)
[2017-01-28 05:21] LABS: ANION GAP 6 mEq/L (8-16); CARBON DIOXIDE 26 mEq/l (22-31); CHLORIDE 113 mEq/L (97-110); CREATININE 0.6 mg/dL (0.7-1.3); GLOMERULAR FILTRATION RATE > 60; GLUCOSE 190 mg/dL (70-100); POTASSIUM 4.1 mEq/L (3.5-5.2); SODIUM 145 mEq/L (134-144)
[2017-01-28 05:34] LABS: BASE EXCESS 1.8 mEq/L (-2.5-2.5); BICARBONATE 25 mEq/L (22-26); MEASURED OXYGEN SATURATION 96 % (92-95); PCO2 36 mmHg (34-38); PO2 86 mmHg (65-75); TCO2 26 mEq/L (23-27)
[2017-01-28 05:35] LABS: END TIDAL CO2 42; O2 CONCENTRATIION 100 % (0-100); P/F RATIO 86 RATIO; PATIENT RATE 22; PRESSURE SUPPORT 10; SIMV YES
[2017-01-28] MEDS: busPIRone 5 MG TAB PO SCH ×2 (08:13→21:05)
[2017-01-28] MEDS: GABAPENTIN 300 MG CAP PO SCH ×2 (08:13→21:05)
[2017-01-28] MEDS: CHLORHEXIDINE GLUCONATE 15 ML UDL PO SCH ×2 (08:34→21:05)
[2017-01-28] MEDS: ENOXAPARIN 40 MG/0.4 ML SYR SC SCH ×2 (09:21→09:35)
[2017-01-28] MEDS: NICOTINE 21 MG/24 HR PATCH TD SCH (09:21)
[2017-01-28] MEDS: THIAMINE HCL 100 MG in NS 100 ML IV SCH (09:21)
[2017-01-28] MEDS: ERTAPENEM 1 GM in NS 100 ML IV SCH (09:21)
[2017-01-28] MEDS: FAMOTIDINE 20 MG/NACL 50 ML IV SCH ×2 (09:22→21:12)
--- NOTE | 2017-01-28 10:28 | WOCRNPDOC ---
WOCRN Advanced Assessment Note - Skin Integrity Problem, Advanced Assess Left Medial Buttock Dressing Type: Allevyn Life Dressing Description: Clean/Dry, Intact Exudate Amount: None Exudate Characteristic(s): None Integumentary Issue Intervention: Dressing Removed Kay Wound Tissue: Scarred (areas of pinpoint hyperpigmented skin in intergluteal gleft, look like healed wounds from ingrown hairs.) Skin Integrity Problem Comment: Removed existing Allevyn over patient's sacrum and coccyx. No wound or erythema noted, and skin is both intact and blanching. There are some scattered pinpoint hyperpigmented areas indicative of ingrown hairs throughout his intergluteal cleft, but skin is otherwise unremarkable. Patient does not need a dressing at this time. Nursing advised to reconsult wound care PRN. Left Medial Arm Dressing Type: Open to Air Exudate Amount: None Exudate Characteristic(s): None Kay Wound Tissue: Intact Kay Wound Swelling: None Wound Bed Color: Purple Skin Integrity Problem Comment: Linear ecchymosis noted in L antecubital, directly under distal aspect of BP cuff. Skin is presently intact. Discussed w/ Staff RNs Analilia and Lissy, who said they would move the BP cuff to patient's L forearm instead. Nursing should continue to monitor this site for compromised skin integrity. Wound care does not need to follow ongoing.
[2017-01-28] MEDS ORDERED: POLYETHYLENE GLYCOL 3350 17 GM PKT PO PRN (10:40)
[2017-01-28] MEDS ORDERED: MAGNESIUM HYDROXIDE 30 ML UDCUP PO PRN (10:40)
[2017-01-28] MEDS ORDERED: LACTULOSE 20 GM/30 ML UDCUP PO PRN (10:40)
[2017-01-28] MEDS ORDERED: BISACODYL 10 MG SUPP PR PRN (10:40)
--- NOTE | 2017-01-28 10:59 | CPEKG ---
Heart Rate: 58 RR Interval: 1034 P-R Interval: 156 QRSD Interval: 92 QT Interval: 404 QTC Interval: 397 P Superior: 63 QRS Superior: 48 T Wave Superior: 47 EKG Severity - BORDERLINE ECG - EKG Impression: SINUS RHYTHM EKG Impression: LOW VOLTAGE IN FRONTAL LEADS EKG Impression: PACs (RARE) Electronically Signed By: Sly Macario 02-Feb-2017 08:56:02
--- NOTE | 2017-01-28 11:30 | PDINTPN ---
Financial Brokers Progress Note Assessment/Plan: Assessment: Assessment/Plan: * Acute alcohol withdrawal-On sedation * Acute respiratory failure secondary to alcohol withdrawal, chronic obstructive pulmonary disease, pancreatitis, and bibasilar pneumonia -Persistently high A-a gradient, likely multifactorial. CXR a bit worse today, I>O. * Alcoholism. Has been drinking heavily for at least a month * Obstructive sleep apnea; Has CPAP (or possibly ASV), but had been non- compliant, using it only a few times/week. Has not had follow-up to assess efficacy of treatment in years. * Polycythemia-he improved after phlebotomy. * Chronic obstructive pulmonary disease- Has been smoking>1 ppd recently -continue bronchodilators, steroids * Fever-Likely due to pneumonia, pancreatitis. Afebrile x 2 days * Sedation-currently well sedated. * VT prophylaxis * Stress ulcer prophylaxis * Nutrition-none except Propofol * ? AF. CTSP due to short runs of AF. BP normal/high. Has sinus arrhythmia with bradycaardia, Plan: Remains unstable, with hypoxemia on 100% oxygen. Will try Lasix. Increase bed rotation, add percussion. If still hypoxemic, may try prone ventilation. Clamp NGT, consider starting TFs if pancreatitis continues to improve, as I expect it will. Consider anticoagulation or rate control if AF develops/persists. Could also try short-term Amio, but would limit dosing due to lung disease. 35 minutes CC time, addressing respiratory failure, arrhythmia. D/W RT, RN, family. 01/28/17 11:35 Subjective: Intubated, sedated Objective: Vital Signs Temp Pulse Resp BP Pulse Ox 36.9 C 56 L 20 153/87 H 93 01/28/17 08:00 01/28/17 10:00 01/28/17 10:00 01/28/17 10:00 01/28/17 10:00 Microbiology 01/26/17 12:00 Gram Stain - Final Lung Right Lower Lobe - Bronchial Washings Laboratory Results 01/28/17 04:30 01/28/17 04:30 01/27/17 01/28/17 01/29/17 05:59 05:59 05:59 Intake Total 4890.7 2515.4 Output Total 1545 1615 500 Balance 3345.7 900.4 -500 PT 13.2 SEC (12.0-15.0) 01/24/17 01:10 INR 1.01 (0.83-1.16) 01/24/17 01:10 CXR: Increased basilar infiltrate/effusion. Images reviewed. Laboratory Tests 01/28/17 05:25 pCO2 36 pO2 86 H ABG pH 7.46 H ABG O2 Saturation 96 H O2 Concentration % 100 Actual Respiration Rate 22 SIMV YES Tidal Volume 550 End Tidal CO2 42 PEEP 12 Physical Exam - Physical Exam General Appearance: no apparent distress EENT: normal ENT inspection Neck: normal inspection Respiratory: decreased breath sounds, No lungs clear (rales bases) Cardiac/Chest: regular rate, rhythm, edema (1+) Abdomen: normal bowel sounds, non-tender, soft Skin: normal color, warm/dry Extremities: normal inspection Neuro/Psych: No alert, No motor weakness (moves all extremities non-purposefully ) ICD10 Worksheet Patient Problems: Problems Problem Status Onset Acute pancreatitis Acute
--- NOTE | 2017-01-28 11:33 | ASMTCMCOM ---
CM Note CM Note Notes: Patient agitated and now restrained in ETOH W/D, NG to suction, NPO, no BM as yet, wound care following. in room offering support to patient. Date Signed: 01/28/2017 11:32 AM Electronically Signed By:Denise Johnston LCSW
[2017-01-28] MEDS ORDERED: FUROSEMIDE 40 MG/4 ML VIAL IVP ONE ×2 (13:55→21:00)
--- NOTE | 2017-01-28 16:15 | HOSPPROG ---
Hospitalist Progress Note Assessment/Plan: 61 yo M w acute on chronic respiratory failure, acute alcoholic pancreatitis acute on chronic resp failure - 5L O2 baseline, severe COPD; now intubated on high O2 needs continue to wean vent as tolerated sepsis (tachycardia, leukocytosis, fever) - possibly d/t aspiration pna suspected aspiration pna - invanz (also covers potential abd sources) etOH w/d - severe, although now sedate on propofol and ativan - sched ativan, propofol, thiamine intermittent a-fib - now sinus for about 24 hours - CHADSVASC2=0 or 1 - consider an aspirin when taking PO - will try to wean dilt gtt today pancreatitis - severe, d/t etOH day 4 begin trial of tube feeds 01/23 acute encephalopathy - d/t etOH, pancreatitis COPD - nebs sched polycythemia - better today; s/p phlebotomy 01/25 mild hepatitis - resolved thrombocytopenia diastolic dysfunction prophylaxis: LMWH Subjective: case d/w dr johnson Objective: Vital Signs Temp Pulse Resp BP Pulse Ox 37.2 C 70 20 150/104 H 90 L 01/28/17 16:00 01/28/17 16:00 01/28/17 16:00 01/28/17 16:00 01/28/17 16:00 Microbiology 01/26/17 12:00 Gram Stain - Final Lung Right Lower Lobe - Bronchial Washings Laboratory Results 01/28/17 04:30 01/28/17 04:30 01/27/17 01/28/17 01/29/17 05:59 05:59 05:59 Intake Total 4890.7 2515.4 Output Total 1545 1615 1625 Balance 3345.7 900.4 -1625 PT 13.2 SEC (12.0-15.0) 01/24/17 01:10 INR 1.01 (0.83-1.16) 01/24/17 01:10 - Physical Exam Constitutional: other (intubated, sedated) Eyes: PERRL, anicteric sclera Ears, Nose, Mouth, Throat: moist mucous membranes, hearing normal Cardiovascular: regular rate and rhythym, no murmur, rub, or gallop Respiratory: no rales or rhonchi, bronchial breath sounds Gastrointestinal: distension, No normoactive bowel sounds, No guarding, No rebound Genitourinary: no bladder fullness, escobar in urethra Skin: warm Musculoskeletal: No full muscle strength Neurologic: No AAOx3 Psychiatric: No interacting appropriately Lymph, Heme, Immunologic: no cervical LAD ICD10 Worksheet Patient Problems: Problems Problem Status Onset Acute pancreatitis Acute
[2017-01-28] MEDS ORDERED: ALBUMIN 25% 100 ML IV ONE (16:43)
[2017-01-28] MEDS ORDERED: PROTOCOL POTASSIUM 1 DOSE MISC PRN (16:44)
[2017-01-28] MEDS ORDERED: PROTOCOL MAGNESIUM 1 DOSE IV PRN (16:44)
[2017-01-28 17:37] LABS: POTASSIUM 3.1 mEq/L (3.5-5.2)
[2017-01-28] MEDS: fentaNYL/NACL 100 ML IV SCH (18:07)
[2017-01-28] MEDS ORDERED: PETROLAT,WHT/MIN OIL/SOD CHL 3.5 GM OPHT.OINT EACHEYE PRN (18:09)
[2017-01-28] MEDS: POTASSIUM Cl (KCl) 100 ML IV SCH ×2 (19:57→20:37)
[2017-01-28] MEDS: MIRTAZAPINE 30 MG TAB PO SCH (21:06)
[2017-01-28] MEDS: SENNOSIDES/DOCUSATE SODIUM TAB PO SCH (21:06)
[2017-01-29] MEDS: methylPREDNISolone SOD SUCC 40 MG/ML VIAL IVP SCH ×4 (00:04→22:30)
[2017-01-29] MEDS: LORazepam 2 MG/ML INJ IVP SCH ×5 (00:34→22:27)
[2017-01-29] MEDS: ALBUTEROL 200 PUFFS/18 GM MDI IH SCH ×6 (00:45→19:57)
[2017-01-29 02:41] LABS: POTASSIUM 4.2 mEq/L (3.5-5.2)
[2017-01-29] MEDS: fentaNYL/NACL 100 ML IV SCH ×2 (04:07→16:02)
[2017-01-29 05:42] LABS: HEMATOCRIT 47.4 % (40.0-51.0); HEMOGLOBIN 16.2 g/dL (13.7-17.5); MEAN CELL HEMOGLOBIN 35.8 pg (27.9-34.1); MEAN CELL HEMOGLOBIN CONCENTR. 34.2 g/dL (32.4-36.7); MEAN CELL VOLUME 104.6 fL (81.5-99.8); RED BLOOD CELL COUNT 4.53 10^6/uL (4.40-6.38); RED CELL DISTRIBUTION WIDTH 14.6 % (11.5-15.2)
[2017-01-29 05:47] LABS: ANION GAP 8 mEq/L (8-16); CALCIUM 10.9 mg/dL (8.5-10.4); CARBON DIOXIDE 29 mEq/l (22-31); CHLORIDE 109 mEq/L (97-110); CREATININE 0.6 mg/dL (0.7-1.3); GLOMERULAR FILTRATION RATE > 60; GLUCOSE 183 mg/dL (70-100); MAGNESIUM 2.4 mg/dL (1.6-2.3); POTASSIUM 4.3 mEq/L (3.5-5.2); SODIUM 146 mEq/L (134-144)
[2017-01-29] MEDS: PROPOFOL/EMULSION 100 ML IV SCH ×3 (05:54→19:21)
[2017-01-29 06:13] LABS: BASE EXCESS 4.9 mEq/L (-2.5-2.5); BICARBONATE 29 mEq/L (22-26); MEASURED OXYGEN SATURATION 91 % (92-95); PCO2 42 mmHg (34-38); PO2 66 mmHg (65-75); TCO2 30 mEq/L (23-27)
[2017-01-29 06:20] LABS: ASSIST CONTROL YES; O2 CONCENTRATIION 100 % (0-100); P/F RATIO 66 RATIO; TOTAL RATE 18
[2017-01-29] MEDS: CHLORHEXIDINE GLUCONATE 15 ML UDL PO SCH ×2 (09:05→20:00)
[2017-01-29] MEDS: FAMOTIDINE 20 MG/NACL 50 ML IV SCH ×2 (09:05→22:27)
[2017-01-29] MEDS: ERTAPENEM 1 GM in NS 100 ML IV SCH (09:05)
[2017-01-29] MEDS: THIAMINE HCL 100 MG in NS 100 ML IV SCH (09:06)
[2017-01-29] MEDS: SENNOSIDES/DOCUSATE SODIUM TAB PO SCH ×2 (09:08→22:35)
[2017-01-29] MEDS: GABAPENTIN 300 MG CAP PO SCH ×2 (09:08→22:35)
[2017-01-29] MEDS: busPIRone 5 MG TAB PO SCH ×2 (09:08→22:35)
[2017-01-29] MEDS: NICOTINE 21 MG/24 HR PATCH TD SCH (09:09)
[2017-01-29] MEDS: ENOXAPARIN 40 MG/0.4 ML SYR SC SCH (09:10)
[2017-01-29] MEDS ORDERED: FUROSEMIDE 40 MG/4 ML VIAL IVP ONE (10:39)
--- NOTE | 2017-01-29 11:32 | HOSPPROG ---
Hospitalist Progress Note Assessment/Plan: 61 yo M w acute on chronic respiratory failure, acute alcoholic pancreatitis acute on chronic resp failure - 5L O2 baseline, severe COPD; now intubated on 100% FiO2, volume up though net negative 3 L overnight send flu pcr cont diuresis, IV lasix given this am considering proning, discussed with pulm continue to wean vent as tolerated sepsis (tachycardia, leukocytosis, fever) - possibly d/t aspiration pna suspected aspiration pna - cont invanz (also covers potential abd sources) etOH w/d - severe, although now sedate on propofol and ativan - sched ativan, propofol, thiamine intermittent a-fib - now sinus for about 48 hours, off dilt - CHADSVASC2=0 or 1 - consider an aspirin when taking PO pancreatitis - severe, d/t etOH, day 5 acute encephalopathy - d/t etOH, pancreatitis COPD - nebs sched polycythemia - better today; s/p phlebotomy 01/25 mild hepatitis - resolved thrombocytopenia diastolic dysfunction FEN - start tube feeds today, on 04/22 NS prophylaxis: LMWH, cont inpt / ICU. Discussed with RN, Pulmonology at rounds Subjective: Pt intubated, sedated, not following commands Objective: Vital Signs Temp Pulse Resp BP Pulse Ox 38.1 C 68 18 157/87 H 90 L 01/29/17 08:00 01/29/17 10:00 01/29/17 10:00 01/29/17 10:00 01/29/17 10:00 Microbiology 01/26/17 12:00 Gram Stain - Final Lung Right Lower Lobe - Bronchial Washings Bronchial Washings Culture - Final Staphylococcus Aureus Laboratory Results 01/29/17 05:00 01/29/17 05:00 01/28/17 01/29/17 01/30/17 05:59 05:59 05:59 Intake Total 2515.4 2111 Output Total 1615 5325 Balance 900.4 -3214 PT 13.2 SEC (12.0-15.0) 01/24/17 01:10 INR 1.01 (0.83-1.16) 01/24/17 01:10 - Physical Exam Constitutional: no apparent distress Eyes: PERRL Ears, Nose, Mouth, Throat: moist mucous membranes Cardiovascular: regular rate and rhythym Respiratory: no respiratory distress, reduced air movement, inspiratory crackles Gastrointestinal: normoactive bowel sounds, soft, non-tender abdomen Skin: warm Neurologic: other (sedated) ICD10 Worksheet Patient Problems: Problems Problem Status Onset Acute pancreatitis Acute
--- NOTE | 2017-01-29 11:58 | PDINTPN ---
Coding Compliance Auditor Progress Note Assessment/Plan: Assessment: Assessment/Plan: * Acute alcohol withdrawal-On sedation * Acute respiratory failure secondary to alcohol withdrawal, chronic obstructive pulmonary disease, pancreatitis, and bibasilar pneumonia -Persistently high A-a gradient, likely multifactorial. CXR with persistent infiltrates. On Ertapenem. * Alcoholism. Has been drinking heavily for at least a month * Obstructive sleep apnea; Has CPAP (or possibly ASV), but had been non- compliant, using it only a few times/week. Has not had follow-up to assess efficacy of treatment in years. * Polycythemia-Improved after phlebotomy. * Chronic obstructive pulmonary disease- Has been smoking>1 ppd recently -continue bronchodilators, steroids * Fever-Returned today. * Sedation-currently well sedated. * VT prophylaxis * Stress ulcer prophylaxis * Nutrition-none except Propofol * ? AF. CTSP due to short runs of AF. BP normal/high. Has sinus arrhythmia with bradycardia. * HTN: ? due to volume overload. DOubt due to inadequate sedation, as it hasn't responded to increased sedation. Plan: Remains unstable, with persistent hypoxemia on 100% oxygen. Continue bed rotation, add percussion. If till hypoxemic after lasix, may try prone ventilation. Will continue Lasix. Start TF Reduce prednisone. Sputum Cx. 40 minutes CC time, addressing respiratory failure with persistent hypoxemia D/W RT, RN, family, Dr. Lange. 01/29/17 12:10 Subjective: Intubated, sedated. Objective: Vital Signs Temp Pulse Resp BP Pulse Ox 38.1 C 67 18 157/87 H 91 L 01/29/17 08:00 01/29/17 11:35 01/29/17 11:35 01/29/17 10:00 01/29/17 11:35 Microbiology 01/26/17 12:00 Gram Stain - Final Lung Right Lower Lobe - Bronchial Washings Bronchial Washings Culture - Final Staphylococcus Aureus Laboratory Results 01/29/17 05:00 01/29/17 05:00 01/28/17 01/29/17 01/30/17 05:59 05:59 05:59 Intake Total 2515.4 2111 Output Total 1615 5325 Balance 900.4 -3214 PT 13.2 SEC (12.0-15.0) 01/24/17 01:10 INR 1.01 (0.83-1.16) 01/24/17 01:10 CXR: Persistent basilar infiltrates and small effusions. Images reviewed. Laboratory Tests 01/29/17 06:05 pCO2 42 H pO2 66 Total CO2 30 H ABG pH 7.45 O2 Concentration % 100 Respiration Rate 18 Tidal Volume 550 Physical Exam - Physical Exam General Appearance: unresponsive, No alert EENT: normal ENT inspection Neck: normal inspection Respiratory: decreased breath sounds, crackles (bases) Cardiac/Chest: regular rate, rhythm, edema (2+) Abdomen: non-tender, soft, distended, No normal bowel sounds (diminished) Skin: normal color, warm/dry Extremities: normal inspection Neuro/Psych: No alert, No oriented x 3, No motor weakness ICD10 Worksheet Patient Problems: Problems Problem Status Onset Acute pancreatitis Acute
[2017-01-29] MEDS: 1/2 NS 1,000 ML IV SCH (12:03)
[2017-01-29] MEDS ORDERED: ALBUMIN 25% 100 ML IV ONE (12:09)
[2017-01-29 12:48] LABS: POTASSIUM 4.3 mEq/L (3.5-5.2)
[2017-01-29] MEDS: FUROSEMIDE 20 MG/2 ML VIAL IVP SCH ×2 (13:56→22:30)
[2017-01-29 18:27] LABS: POTASSIUM 3.8 mEq/L (3.5-5.2)
[2017-01-29] MEDS ORDERED: POTASSIUM Cl (KCl) 100 ML IV ONE (19:00)
[2017-01-29] MEDS ORDERED: METOCLOPRAMIDE 10 MG/2 ML VIAL IVP ONE (23:43)
[2017-01-30] MEDS: ALBUTEROL 200 PUFFS/18 GM MDI IH SCH ×7 (00:09→23:33)
[2017-01-30] MEDS: MIRTAZAPINE 30 MG TAB PO SCH ×2 (01:10→22:04)
[2017-01-30] MEDS: PROPOFOL/EMULSION 100 ML IV SCH ×3 (01:57→16:24)
[2017-01-30] MEDS: fentaNYL/NACL 100 ML IV SCH ×2 (04:36→21:59)
[2017-01-30] MEDS: LORazepam 2 MG/ML INJ IVP SCH ×4 (04:37→15:22)
[2017-01-30 05:30] LABS: ANION GAP 7 mEq/L (8-16); CALCIUM 11.4 mg/dL (8.5-10.4); CARBON DIOXIDE 32 mEq/l (22-31); CHLORIDE 102 mEq/L (97-110); CREATININE 0.7 mg/dL (0.7-1.3); GLOMERULAR FILTRATION RATE > 60; GLUCOSE 197 mg/dL (70-100); MAGNESIUM 2.5 mg/dL (1.6-2.3); POTASSIUM 4.5 mEq/L (3.5-5.2); SODIUM 141 mEq/L (134-144)
[2017-01-30] MEDS: FUROSEMIDE 20 MG/2 ML VIAL IVP SCH ×3 (06:17→22:01)
[2017-01-30] MEDS: FAMOTIDINE 20 MG/NACL 50 ML IV SCH ×2 (08:07→21:58)
[2017-01-30] MEDS: ENOXAPARIN 40 MG/0.4 ML SYR SC SCH (08:07)
[2017-01-30] MEDS: NICOTINE 21 MG/24 HR PATCH TD SCH (08:07)
[2017-01-30] MEDS: busPIRone 5 MG TAB PO SCH ×2 (08:07→22:05)
[2017-01-30] MEDS: methylPREDNISolone SOD SUCC 40 MG/ML VIAL IVP SCH ×2 (08:07→22:00)
[2017-01-30] MEDS: CHLORHEXIDINE GLUCONATE 15 ML UDL PO SCH ×2 (08:07→22:12)
[2017-01-30] MEDS: GABAPENTIN 300 MG CAP PO SCH ×2 (08:08→22:04)
[2017-01-30] MEDS: THIAMINE HCL 100 MG in NS 100 ML IV SCH (08:14)
[2017-01-30] MEDS: ERTAPENEM 1 GM in NS 100 ML IV SCH (08:14)
[2017-01-30] MEDS: SENNOSIDES/DOCUSATE SODIUM TAB PO SCH ×2 (08:14→22:05)
--- NOTE | 2017-01-30 12:26 | ASMTCMCOM ---
CM Note CM Note Notes: Patient remains intubated/sedated with persistent hypoxemia. I spoke at length with patient's Constanza, who has been spending all day, every day with patient. She said that patient has never been this sick before. Constanza said that he has battled with chronic pain, opioid addiction, and mental illness for years. Per Constanza, patient was prescribed opioids for his back pain 6-7 years ago and became addicted. Three years ago, she took him to [facility] for treatment. According to Constanza, he had been doing well for a few years post-tx - exercising, not smoking/drinking, working - but that in the last 7 months, he has abandoned his good habits and resumed the unhealthy ones. He has been unable to work because of his back pain and has been drinking a lot. She says that he has "many anxieties," and she brought his mental health meds in to the hospital with her. Constanza says that patient has family in [place], and she is in contact with them. She said that patient has not been interested in moving to [place] to be close to family even though he is alone with her in the [place] area. RE: d/c planning, Constanza realizes that patient has a long road ahead and that he will need external support, whether that be in the form of SNF rehab, alcohol rehab, or behavioral health treatment, or any combination thereof. She appreciates our help in the process and will await our recommendations. Date Signed: 01/30/2017 12:26 PM Electronically Signed By:Dafne Gutiérrez RN
[2017-01-30 12:39] LABS: POTASSIUM 4.4 mEq/L (3.5-5.2)
--- NOTE | 2017-01-30 14:30 | PDINTPN ---
Top Distribution Executive Progress Note Assessment/Plan: Assessment: Assessment/Plan: * Acute alcohol withdrawal-On sedation * Acute respiratory failure secondary to alcohol withdrawal, chronic obstructive pulmonary disease, pancreatitis, and bibasilar pneumonia -Persistently high A-a gradient, stilll requiring 100% oxygen, likely multifactorial. CXR with persistent infiltrates, but improved today. On Ertapenem. * Alcoholism. Has been drinking heavily for at least a month * Obstructive sleep apnea; Has CPAP (or possibly ASV), but had been non- compliant, using it only a few times/week. Has not had follow-up to assess efficacy of treatment in years. * Polycythemia-Improved after phlebotomy. * Chronic obstructive pulmonary disease- Has been smoking>1 ppd recently -continue bronchodilators, steroids * Fever-Persists today. * Sedation-currently well sedated. * VT prophylaxis * Stress ulcer prophylaxis * Nutrition-none except Propofol * ? AF. No further episodes * HTN: Borderline. ? due to volume overload, now better s/p diuresis. Doubt due to inadequate sedation, as it hasn't responded to increased sedation. Plan: Remains unstable, with persistent hypoxemia on 100% oxygen. Continue bed rotation, add percussion. Will continue Lasix, probably stop in AM. Continue TF Continue prednisone. Sputum Cx. D/W RT, RN, family, Dr. Lange. 01/30/17 14:33 Subjective: Intubated, sedated. Objective: Vital Signs Temp Pulse Resp BP Pulse Ox 38.8 C H 64 18 138/80 H 92 01/30/17 14:00 01/30/17 14:00 01/30/17 14:00 01/30/17 14:00 01/30/17 14:00 Microbiology 01/29/17 15:35 - Final Sputum, Induced/Suctioned Laboratory Results 01/30/17 04:40 01/30/17 12:17 01/29/17 01/30/17 01/31/17 05:59 05:59 05:59 Intake Total 2117 1701 Output Total 5325 5725 450 Balance -3214 -3327 -450 PT 13.2 SEC (12.0-15.0) 01/24/17 01:10 INR 1.01 (0.83-1.16) 01/24/17 01:10 CXR: Improved basilar infiltrates, but still significant consolidation behind heart and right diaphragm. Images reviewed. Bronch Cx: MSSA Sputum Cx 01/29: NOS. Physical Exam - Physical Exam General Appearance: alert, no apparent distress EENT: normal ENT inspection Neck: normal inspection Respiratory: decreased breath sounds Cardiac/Chest: regular rate, rhythm, No edema Abdomen: normal bowel sounds, non-tender Skin: normal color, warm/dry Extremities: normal inspection Neuro/Psych: No alert, No oriented x 3 ICD10 Worksheet Patient Problems: Problems Problem Status Onset Acute pancreatitis Acute
--- NOTE | 2017-01-30 15:41 | HOSPPROG ---
Hospitalist Progress Note Assessment/Plan: 61 yo M w acute on chronic respiratory failure, acute alcoholic pancreatitis acute on chronic resp failure - multifactorial with COPD, poss PNA, JO-ANN, volume overload. 5L O2 baseline, severe COPD; now intubated on 100% FiO2, diuresed > 8L net neg past few days, b/l infiltrates improved on CXR today. D/W pulm. cont diuresis, IV lasix 20 mg TID cont IV steroids cont ertapenem, should cover MSSA noted on sputum cx continue to wean vent as tolerated sepsis (tachycardia, leukocytosis, fever) - possibly d/t aspiration pna suspected aspiration pna - cont invanz (also covers potential abd sources) etOH w/d - was severe, now off ativan intermittent a-fib - now sinus for about 48 hours, off dilt - CHADSVASC2=0 to 1, consider an aspirin when taking PO pancreatitis - severe, d/t etOH, day 6 acute encephalopathy - d/t etOH, pancreatitis polycythemia - better today; s/p phlebotomy 01/25 mild hepatitis - resolved thrombocytopenia diastolic dysfunction FEN - on tube feeds prophylaxis: LMWH, cont inpt / ICU. Discussed with RN, Pulmonology at rounds Subjective: Pt is intubated, sedated. Off Ativan. No fevers. Objective: Vital Signs Temp Pulse Resp BP Pulse Ox 38.8 C H 64 18 138/80 H 92 01/30/17 14:00 01/30/17 14:00 01/30/17 14:00 01/30/17 14:00 01/30/17 14:00 Microbiology 01/29/17 15:35 - Final Sputum, Induced/Suctioned Laboratory Results 01/30/17 04:40 01/30/17 12:17 01/29/17 01/30/17 01/31/17 05:59 05:59 05:59 Intake Total 9719 5224 Output Total 4366 7955 5849 Balance -5454 -2852 -1700 PT 13.2 SEC (12.0-15.0) 01/24/17 01:10 INR 1.01 (0.83-1.16) 01/24/17 01:10 - Physical Exam Constitutional: no apparent distress Eyes: PERRL Ears, Nose, Mouth, Throat: moist mucous membranes Cardiovascular: regular rate and rhythym Respiratory: no respiratory distress, reduced air movement Gastrointestinal: normoactive bowel sounds, soft, non-tender abdomen Skin: warm Musculoskeletal: other (1+ LE edema) ICD10 Worksheet Patient Problems: Problems Problem Status Onset Acute pancreatitis Acute
[2017-01-30 20:12] LABS: POTASSIUM 3.9 mEq/L (3.5-5.2)
[2017-01-30] MEDS ORDERED: POTASSIUM Cl (KCl) 100 ML IV ONE (20:30)
[2017-01-31] MEDS: PROPOFOL/EMULSION 100 ML IV SCH ×4 (00:12→21:03)
[2017-01-31 04:09] LABS: ADD DIFF? YES; ADD MORPH? NO; ADD SCAN? NO; ATYPICAL LYMPHOCYTE FLAG 0 (0-99); FRAGMENT RBC FLAG 0 (0-99); HEMATOCRIT 48.8 % (40.0-51.0); HEMOGLOBIN 16.9 g/dL (13.7-17.5); LEFT SHIFT FLG 20 (0-99); LIPEMIA HEMOLYSIS FLAG 90 (0-99); MEAN CELL HEMOGLOBIN 35.8 pg (27.9-34.1); MEAN CELL HEMOGLOBIN CONCENTR. 34.6 g/dL (32.4-36.7); MEAN CELL VOLUME 103.4 fL (81.5-99.8); PLATELET CLUMPS FLAG 30 (0-99); PLATELET COUNT 156 10^3/uL (150-400); RED BLOOD CELL COUNT 4.72 10^6/uL (4.40-6.38); RED CELL DISTRIBUTION WIDTH 13.8 % (11.5-15.2)
[2017-01-31] MEDS: ALBUTEROL 200 PUFFS/18 GM MDI IH SCH ×6 (04:46→23:43)
[2017-01-31 04:47] LABS: MACROCYTES 1+; PLATELET ESTIMATE ADEQUATE (ADEQ)
[2017-01-31 05:09] LABS: ANION GAP 7 mEq/L (8-16); CARBON DIOXIDE 31 mEq/l (22-31); CHLORIDE 101 mEq/L (97-110); CREATININE 0.7 mg/dL (0.7-1.3); GLOMERULAR FILTRATION RATE > 60; GLUCOSE 204 mg/dL (70-100); MAGNESIUM 2.4 mg/dL (1.6-2.3); POTASSIUM 4.3 mEq/L (3.5-5.2); SODIUM 139 mEq/L (134-144)
[2017-01-31 05:19] LABS: PTH INTACT NO MINERALS 597.1 pg/ml (10.8-79.4)
[2017-01-31] MEDS: FUROSEMIDE 20 MG/2 ML VIAL IVP SCH ×3 (06:36→22:08)
[2017-01-31] MEDS: ERTAPENEM 1 GM in NS 100 ML IV SCH (08:10)
[2017-01-31] MEDS: THIAMINE HCL 100 MG in NS 100 ML IV SCH (08:10)
[2017-01-31] MEDS: methylPREDNISolone SOD SUCC 40 MG/ML VIAL IVP SCH ×2 (08:14→21:10)
[2017-01-31] MEDS: NICOTINE 21 MG/24 HR PATCH TD SCH (08:17)
[2017-01-31] MEDS: ENOXAPARIN 40 MG/0.4 ML SYR SC SCH (08:24)
[2017-01-31] MEDS: SENNOSIDES/DOCUSATE SODIUM TAB PO SCH ×2 (08:25→21:08)
[2017-01-31] MEDS: CHLORHEXIDINE GLUCONATE 15 ML UDL PO SCH ×2 (08:25→21:03)
[2017-01-31] MEDS: GABAPENTIN 300 MG CAP PO SCH ×2 (08:25→21:05)
[2017-01-31] MEDS: FAMOTIDINE 20 MG/NACL 50 ML IV SCH ×2 (08:26→21:03)
[2017-01-31] MEDS: busPIRone 5 MG TAB PO SCH ×2 (09:00→21:07)
--- NOTE | 2017-01-31 11:29 | PDINTPN ---
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 CXR with persistent infiltrates, stable today. On Ertapenem. * Alcoholism. Has been drinking heavily for at least a month * Obstructive sleep apnea; Has CPAP (or possibly ASV), but had been non- compliant, using it only a few times/week. Has not had follow-up to assess efficacy of treatment in years. * Polycythemia-Improved after phlebotomy. * Chronic obstructive pulmonary disease- Has been smoking>1 ppd recently -continue bronchodilators, steroids * Fever-None since last night. On Ertapenem * Sedation-currently well sedated. * VT prophylaxis * Stress ulcer prophylaxis * Nutrition-On TF * ? AF. No further episodes * HTN: Borderline. Improved Plan: O2 needs finally improving. Continue bed rotation, percussion. Will try another dose of Lasix Continue TF Continue prednisone. Weaning trials D/W RT, RN, family, Dr. Lange. 01/31/17 11:39 Subjective: Intubated, sedated Objective: Vital Signs Temp Pulse Resp BP Pulse Ox 37.6 C 80 15 114/77 92 01/31/17 08:23 01/31/17 08:23 01/31/17 08:23 01/31/17 08:23 01/31/17 08:23 Microbiology 01/29/17 15:35 - Final Sputum, Induced/Suctioned 01/25/17 20:23 Blood Culture - Final Blood 01/25/17 20:15 Blood Culture - Final Blood Laboratory Results 01/31/17 04:00 01/31/17 04:00 01/30/17 01/31/17 02/01/17 05:59 05:59 05:59 Intake Total 7145 0549 Output Total 5773 2840 Balance -3327 -861 PT 13.2 SEC (12.0-15.0) 01/24/17 01:10 INR 1.01 (0.83-1.16) 01/24/17 01:10 Laboratory Tests 01/31/17 04:00 PTH Intact 597.1 H Calcium (PTH Intact) 11.0 H CXR: Stable. Images reviewed. Physical Exam - Physical Exam General Appearance: No alert EENT: normal ENT inspection (sedated) Neck: normal inspection Respiratory: decreased breath sounds Cardiac/Chest: regular rate, rhythm, edema (1+) Abdomen: normal bowel sounds, non-tender Skin: normal color, warm/dry Extremities: normal inspection Neuro/Psych: No alert, No oriented x 3, No motor weakness ICD10 Worksheet Patient Problems: Problems Problem Status Onset Acute pancreatitis Acute
--- NOTE | 2017-01-31 12:24 | HOSPPROG ---
Hospitalist Progress Note Assessment/Plan: 61 yo M w acute on chronic respiratory failure, acute alcoholic pancreatitis acute on chronic resp failure - multifactorial with COPD, poss PNA, JO-ANN, volume overload. 5L O2 baseline, severe COPD; remains intubated, O2 needs down from 100% to 60% FiO2, diuresed >8L net neg past few days, b/l infiltrates improved on CXR today. D/W pulm. cont diuresis cont IV steroids cont ertapenem, should cover MSSA noted on sputum cx continue to wean vent as tolerated sepsis (tachycardia, leukocytosis, fever) - possibly d/t aspiration pna suspected aspiration pna - cont invanz (also covers potential abd sources) etOH w/d - was severe, now off ativan intermittent a-fib - now sinus for about 48 hours, off dilt CHADSVASC2=0 to 1, consider an aspirin when taking PO pancreatitis - severe, d/t etOH, day 7 acute encephalopathy - d/t etOH, pancreatitis polycythemia - better today; s/p phlebotomy 01/25 mild hepatitis - resolved hypercalcemia secondary to primary hyperparathyroidism - Calcium mildly elevated without symptoms. PTH high. outpt ENT f/u monitor calcium and treat if >12 or causing symptoms thrombocytopenia - plts now normalized diastolic dysfunction - diuresing as above FEN - on tube feeds prophylaxis: LMWH, cont inpt. Discussed with RN, Pulmonology at rounds Subjective: Pt intubated, sedated. Afebrile for 24 hrs. Objective: Vital Signs Temp Pulse Resp BP Pulse Ox 37.6 C 76 18 114/77 92 01/31/17 08:23 01/31/17 11:50 01/31/17 11:50 01/31/17 08:23 01/31/17 11:50 Microbiology 01/29/17 15:35 - Final Sputum, Induced/Suctioned 01/25/17 20:23 Blood Culture - Final Blood 01/25/17 20:15 Blood Culture - Final Blood Laboratory Results 01/31/17 04:00 01/31/17 04:00 01/30/17 01/31/17 02/01/17 05:59 05:59 05:59 Intake Total 2393 2089 Output Total 5783 2950 Balance -3327 -861 PT 13.2 SEC (12.0-15.0) 01/24/17 01:10 INR 1.01 (0.83-1.16) 01/24/17 01:10 - Physical Exam Constitutional: chronically ill appearing Eyes: PERRL Ears, Nose, Mouth, Throat: moist mucous membranes Cardiovascular: regular rate and rhythym Respiratory: no respiratory distress, reduced air movement Gastrointestinal: normoactive bowel sounds, soft, non-tender abdomen Skin: warm Neurologic: other (sedated on vent) ICD10 Worksheet Patient Problems: Problems Problem Status Onset Acute pancreatitis Acute
[2017-01-31 14:03] LABS: POTASSIUM 4.1 mEq/L (3.5-5.2)
[2017-01-31 18:15] LABS: POTASSIUM 3.5 mEq/L (3.5-5.2)
[2017-01-31] MEDS: fentaNYL/NACL 100 ML IV SCH (18:32)
[2017-01-31] MEDS: POTASSIUM Cl (KCl) 50 ML IV SCH ×3 (18:36→19:40)
[2017-01-31] MEDS: MIRTAZAPINE 30 MG TAB PO SCH (21:04)
[2017-02-01 01:32] LABS: POTASSIUM 4.3 mEq/L (3.5-5.2)
[2017-02-01] MEDS: ALBUTEROL 200 PUFFS/18 GM MDI IH SCH ×6 (04:25→23:45)
[2017-02-01 05:45] LABS: POTASSIUM 4.1 mEq/L (3.5-5.2)
[2017-02-01] MEDS: 1/2 NS 1,000 ML IV SCH (05:45)
[2017-02-01] MEDS: PROPOFOL/EMULSION 100 ML IV SCH ×3 (05:48→20:39)
[2017-02-01] MEDS: FUROSEMIDE 20 MG/2 ML VIAL IVP SCH ×3 (05:48→22:41)
[2017-02-01] MEDS: CHLORHEXIDINE GLUCONATE 15 ML UDL PO SCH ×2 (07:48→20:30)
--- NOTE | 2017-02-01 09:37 | PDINTPN ---
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 CXR with persistent infiltrates, stable today. On Ertapenem. * Alcoholism. Has been drinking heavily for at least a month * Obstructive sleep apnea; Has CPAP (or possibly ASV), but had been non- compliant, using it only a few times/week. Has not had follow-up to assess efficacy of treatment in years. * Polycythemia-Improved after phlebotomy. * Chronic obstructive pulmonary disease- Has been smoking>1 ppd recently -continue bronchodilators, steroids * Fever-Febrile last night. On Ertapenem * Sedation-currently well sedated. * VT prophylaxis * Stress ulcer prophylaxis * Nutrition-On TF * ? AF. No further episodes * HTN: Borderline. Improved * Hypercalcemia: Likely due to hyperparathyroidism. Plan: O2 needs finally improving. Continue bed rotation, percussion. Probably can slow down/stop diuresis. Continue TF Continue prednisone. Weaning trials. Will try to extubate today, likely will bronch first. Check ionized calcium. D/W RT, RN, family, Dr. Lange. 02/01/17 09:46 02/01/17 09:47 Subjective: Weakly responds to voice, not following commmands. Objective: Vital Signs Temp Pulse Resp BP Pulse Ox 37.4 C 76 18 112/63 91 L 02/01/17 09:15 02/01/17 09:15 02/01/17 09:15 02/01/17 09:15 02/01/17 09:15 Microbiology 01/29/17 15:35 - Final Sputum, Induced/Suctioned Laboratory Results 01/31/17 04:00 02/01/17 05:25 01/31/17 02/01/17 02/02/17 05:59 05:59 05:59 Intake Total 4889 2575.9 Output Total 2950 3580 Balance -861 -1004.1 PT 13.2 SEC (12.0-15.0) 01/24/17 01:10 INR 1.01 (0.83-1.16) 01/24/17 01:10 Physical Exam - Physical Exam General Appearance: alert, no apparent distress EENT: normal ENT inspection Neck: normal inspection Respiratory: lungs clear, normal breath sounds Cardiac/Chest: regular rate, rhythm, edema Abdomen: normal bowel sounds, non-tender Skin: normal color, warm/dry Extremities: normal inspection Neuro/Psych: No alert (sedated but arousable), No motor weakness ICD10 Worksheet Patient Problems: Problems Problem Status Onset Acute pancreatitis Acute
[2017-02-01] MEDS: GABAPENTIN 300 MG CAP PO SCH ×2 (09:43→22:25)
[2017-02-01] MEDS: SENNOSIDES/DOCUSATE SODIUM TAB PO SCH ×2 (09:43→22:41)
[2017-02-01] MEDS: busPIRone 5 MG TAB PO SCH ×2 (09:43→22:23)
[2017-02-01] MEDS: FAMOTIDINE 20 MG/NACL 50 ML IV SCH ×2 (09:44→22:24)
[2017-02-01] MEDS: THIAMINE HCL 100 MG in NS 100 ML IV SCH (09:44)
[2017-02-01] MEDS: NICOTINE 21 MG/24 HR PATCH TD SCH (09:44)
[2017-02-01] MEDS: ERTAPENEM 1 GM in NS 100 ML IV SCH (09:44)
[2017-02-01] MEDS: methylPREDNISolone SOD SUCC 40 MG/ML VIAL IVP SCH ×2 (09:44→22:25)
[2017-02-01] MEDS: ENOXAPARIN 40 MG/0.4 ML SYR SC SCH (09:44)
[2017-02-01 10:20] LABS: IONIZED CALCIUM 1.28 MMOL/L (1.12-1.30)
[2017-02-01] MEDS ORDERED: LIDOCAINE 1% 300 MG/30 ML SDV MISC ONE (10:47)
[2017-02-01] MEDS ORDERED: LIDOCAINE 2% JELLY 5 ML TUBE TP ONE (10:47)
[2017-02-01] MEDS ORDERED: FUROSEMIDE 40 MG/4 ML VIAL IVP ONE (11:33)
[2017-02-01] MEDS ORDERED: ALBUMIN 25% 100 ML IV ONE (11:33)
--- NOTE | 2017-02-01 11:46 | HOSPPROG ---
Hospitalist Progress Note Assessment/Plan: 61 yo M w acute on chronic respiratory failure, acute alcoholic pancreatitis acute on chronic resp failure - multifactorial with COPD, poss PNA, JO-ANN, volume overload. 5L O2 baseline, severe COPD; remains intubated, O2 needs down from 100% to 60%, back up to 80% FiO2 overnight, diuresed aggressively past few days , b/l infiltrates improved on CXR. D/W pulm. will back off on diuresis cont steroids cont ertapenem, should cover MSSA noted on sputum cx bronch today and hoping to extubate sepsis (tachycardia, leukocytosis, fever) - possibly d/t aspiration pna suspected aspiration pna - cont invanz (also covers potential abd sources) etOH w/d - was severe, now off ativan intermittent a-fib - now sinus for about 48 hours, off dilt CHADSVASC2=0 to 1, consider an aspirin when taking PO pancreatitis - severe, d/t etOH, day 9 acute encephalopathy - d/t etOH, pancreatitis polycythemia - better today; s/p phlebotomy 01/25 mild hepatitis - resolved hypercalcemia secondary to primary hyperparathyroidism - Calcium mildly elevated without symptoms. PTH high. outpt ENT f/u monitor calcium and treat if >12 or causing symptoms thrombocytopenia - plts now normalized diastolic dysfunction - diuresing as above FEN - on tube feeds prophylaxis: LMWH, cont inpt. Discussed with RN, Pulmonology at rounds Subjective: Pt intubated, less sedated. Bucking tube. Objective: Vital Signs Temp Pulse Resp BP Pulse Ox 37.3 C 72 18 124/91 H 89 L 02/01/17 10:00 02/01/17 10:00 02/01/17 10:00 02/01/17 10:00 02/01/17 10:00 Microbiology 01/29/17 15:35 - Final Sputum, Induced/Suctioned Laboratory Results 01/31/17 04:00 02/01/17 05:25 01/31/17 02/01/17 02/02/17 05:59 05:59 05:59 Intake Total 5499 2575.9 Output Total 2950 3580 Balance -861 -1004.1 PT 13.2 SEC (12.0-15.0) 01/24/17 01:10 INR 1.01 (0.83-1.16) 01/24/17 01:10 - Physical Exam Constitutional: chronically ill appearing Ears, Nose, Mouth, Throat: moist mucous membranes Cardiovascular: regular rate and rhythym Respiratory: no respiratory distress, reduced air movement Gastrointestinal: normoactive bowel sounds, soft, non-tender abdomen Skin: warm Musculoskeletal: generalized weakness Neurologic: other (sedated on vent) ICD10 Worksheet Patient Problems: Problems Problem Status Onset Acute pancreatitis Acute
[2017-02-01 13:09] LABS: POTASSIUM 3.9 mEq/L (3.5-5.2)
[2017-02-01] MEDS ORDERED: POTASSIUM Cl (KCl) 50 ML IV ONE (13:40)
[2017-02-01] MEDS ORDERED: POTASSIUM Cl (KCl) 100 ML IV ONE ×2 (14:15→22:30)
[2017-02-01] MEDS: fentaNYL/NACL 100 ML IV SCH (14:18)
--- NOTE | 2017-02-01 14:36 | GPN ---
[f rep st] PROCEDURE NOTE DATE OF PROCEDURE: 02/01/2017 PROCEDURE: Flexible fiberoptic bronchoscopy. INDICATION: Respiratory failure with probable retained secretions. PROCEDURE: The risks and benefits of the procedure were explained to the patient's , who agreed to proceed. The entire procedure was performed in the intensive care unit with the patient under blo od pressure, EKG, and oximetry monitoring. It was my assessment that there was no risk of airborne i nfection from the procedure. After an appropriate time-out, 3 cc 1% lidocaine was instilled into the patient's endotracheal tube. The bronchoscope was advanced through the endotracheal tube. The righ t upper lobe, had scant purulent secretions which were easily suctioned. In the right lower lobe, th ere were some thin watery secretions, which were easily suctioned, and associated with just a small a mount of purulent secretions, which were also easily suctioned. I then turned to the left-sided airw ays, where a small amount of mucopurulent secretions were suctioned primarily from the lower lobe. B oth lower lobes were lavaged with a small volume of saline. All airways were clear at the end of the procedure. There were no endobronchial abnormalities visualized. The patient tolerated the procedu re well. Propofol was used for sedation. No specimens were sent, and there was no blood loss. /[id number]/MODL
[2017-02-01 18:52] LABS: POTASSIUM 3.8 mEq/L (3.5-5.2)
[2017-02-01] MEDS: MIRTAZAPINE 30 MG TAB PO SCH (22:24)
[2017-02-02 00:51] LABS: POTASSIUM 4.1 mEq/L (3.5-5.2)
[2017-02-02] MEDS: ALBUTEROL 200 PUFFS/18 GM MDI IH SCH ×2 (04:36→09:06)
[2017-02-02] MEDS: FUROSEMIDE 20 MG/2 ML VIAL IVP SCH ×3 (05:42→22:30)
[2017-02-02 07:34] LABS: ALANINE AMINOTRANSFERASE 61 IU/L (21-72); ALBUMIN 3.5 g/dL (3.5-5.0); ALKALINE PHOSPHATASE 71 IU/L (38-126); ANION GAP 10 mEq/L (8-16); ASPARTATE AMINOTRANSFERASE 22 IU/L (17-59); BILIRUBIN,TOTAL 1.3 mg/dL (0.1-1.4); CARBON DIOXIDE 31 mEq/l (22-31); CHLORIDE 99 mEq/L (97-110); CREATININE 0.7 mg/dL (0.7-1.3); GLOMERULAR FILTRATION RATE > 60; GLUCOSE 246 mg/dL (70-100); SODIUM 140 mEq/L (134-144); TOTAL PROTEIN 5.8 g/dL (6.3-8.2)
[2017-02-02] MEDS: ERTAPENEM 1 GM in NS 100 ML IV SCH (08:19)
[2017-02-02] MEDS: FAMOTIDINE 20 MG/NACL 50 ML IV SCH (08:19)
[2017-02-02] MEDS: busPIRone 5 MG TAB PO SCH ×2 (08:20→21:05)
[2017-02-02] MEDS: THIAMINE HCL 100 MG in NS 100 ML IV SCH (08:20)
[2017-02-02] MEDS: CHLORHEXIDINE GLUCONATE 15 ML UDL PO SCH (08:20)
[2017-02-02] MEDS: GABAPENTIN 300 MG CAP PO SCH ×2 (08:20→21:06)
[2017-02-02] MEDS: SENNOSIDES/DOCUSATE SODIUM TAB PO SCH ×2 (08:20→21:07)
[2017-02-02] MEDS: NICOTINE 21 MG/24 HR PATCH TD SCH (08:20)
[2017-02-02] MEDS: ENOXAPARIN 40 MG/0.4 ML SYR SC SCH (08:21)
[2017-02-02 09:10] LABS: BICARBONATE 29 mEq/L (22-26); MEASURED OXYGEN SATURATION 91 % (92-95); PCO2 41 mmHg (34-38); PO2 62 mmHg (65-75); TCO2 30 mEq/L (23-27)
[2017-02-02 09:11] LABS: CPAP YES; END TIDAL CO2 54; O2 CONCENTRATIION 50 % (0-100); PATIENT RATE 20; PRESSURE SUPPORT 7
[2017-02-02 09:13] LABS: P/F RATIO 124 RATIO
--- NOTE | 2017-02-02 09:35 | PDINTPN ---
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 CXR with persistent infiltrates, stable today. On Ertapenem. * Alcoholism. Has been drinking heavily for at least a month prior to admit * Obstructive sleep apnea; Has CPAP (or possibly ASV), but had been non- compliant, using it only a few times/week. Has not had follow-up to assess efficacy of treatment in years. * Polycythemia-Improved after phlebotomy. * Chronic obstructive pulmonary disease- Has been smoking>1 ppd recently -continue bronchodilators, steroids * Fever-Febrile last on 01/31. On Ertapenem * Sedation-currently well sedated. * VT prophylaxis * Stress ulcer prophylaxis * Nutrition-On TF * ? AF. No further episodes * HTN: Borderline. Well controlled * Hypercalcemia: Likely due to hyperparathyroidism. Ionized Ca quite high, could be symptomatic. Plan: O2 needs finally improving. Continue bed rotation, percussion. Extubate Probably can stop diuresis. Continue TF Continue steroids. Assess for symptomatic hypercalcemia once extubated. D/W RT, RN, family, Dr. Lange. 02/02/17 09:39 Subjective: More alert. Denies pain. Objective: Vital Signs Temp Pulse Resp BP Pulse Ox 37.4 C 77 22 H 94/62 L 88 L 02/02/17 05:51 02/02/17 05:51 02/02/17 05:51 02/02/17 05:51 02/02/17 05:51 Laboratory Results 01/31/17 04:00 02/02/17 06:30 02/01/17 02/02/17 02/03/17 05:59 05:59 05:59 Intake Total 2575.9 2549.8 Output Total 3580 3200 Balance -1004.1 -650.2 PT 13.2 SEC (12.0-15.0) 01/24/17 01:10 INR 1.01 (0.83-1.16) 01/24/17 01:10 CXR: Stable. Images reviewed. Laboratory Tests 02/02/17 08:55 pCO2 41 H pO2 62 L Total CO2 30 H ABG pH 7.47 H ABG HCO3 29 H O2 Concentration % 50 CPAP YES Laboratory Tests 02/01/17 10:10 Ionized Calcium 1.28 Physical Exam - Physical Exam General Appearance: alert, mild distress EENT: normal ENT inspection Neck: normal inspection Respiratory: crackles (bases) Cardiac/Chest: regular rate, rhythm, No edema Abdomen: normal bowel sounds, non-tender, soft Skin: normal color, warm/dry Extremities: normal inspection Neuro/Psych: alert, No motor weakness ICD10 Worksheet Patient Problems: Problems Problem Status Onset Acute pancreatitis Acute
[2017-02-02] MEDS: methylPREDNISolone SOD SUCC 40 MG/ML VIAL IVP SCH ×2 (09:44→21:06)
--- NOTE | 2017-02-02 09:51 | HOSPPROG ---
Hospitalist Progress Note Assessment/Plan: 61 yo M w acute on chronic respiratory failure, acute alcoholic pancreatitis acute on chronic resp failure - multifactorial with COPD, poss PNA, JO-ANN, volume overload. 5L O2 baseline, severe COPD; extubated today. diuresed aggressively past few days, b/l infiltrates improved on CXR. D/W pulm. cont lower dose lasix, note rising BUN cont steroids, currently on solumedrol 40 IV BID, change to po when passes swallow eval cont ertapenem, day 8, should cover MSSA noted on sputum cx, planning for 10 day course per pulm sepsis (tachycardia, leukocytosis, fever) - possibly d/t aspiration pna suspected aspiration pna - cont invanz (also covers potential abd sources) etOH w/d - was severe, now off ativan intermittent a-fib - now sinus for about 48 hours, off dilt CHADSVASC2=0 to 1, consider an aspirin when taking PO pancreatitis - severe, d/t etOH, day 10 acute encephalopathy - d/t etOH, pancreatitis polycythemia - better today; s/p phlebotomy 01/25 mild hepatitis - resolved hypercalcemia secondary to primary hyperparathyroidism - Calcium mildly elevated. PTH high. outpt ENT f/u monitor calcium and treat if >12 or causing symptoms thrombocytopenia - plts now normalized diastolic dysfunction - diuresing as above FEN - on tube feeds prophylaxis: LMWH, cont inpt. Discussed with RN, Pulmonology at rounds Subjective: Pt extubated, resting comfortably, no complaints. Objective: Vital Signs Temp Pulse Resp BP Pulse Ox 37.9 C 86 20 137/87 H 93 02/02/17 09:39 02/02/17 09:39 02/02/17 09:39 02/02/17 09:39 02/02/17 09:39 Laboratory Results 01/31/17 04:00 02/02/17 06:30 02/01/17 02/02/17 02/03/17 05:59 05:59 05:59 Intake Total 2575.9 2549.8 Output Total 3580 3200 Balance -1004.1 -650.2 PT 13.2 SEC (12.0-15.0) 01/24/17 01:10 INR 1.01 (0.83-1.16) 01/24/17 01:10 - Physical Exam Constitutional: chronically ill appearing Eyes: PERRL Ears, Nose, Mouth, Throat: moist mucous membranes Cardiovascular: regular rate and rhythym Respiratory: no respiratory distress, reduced air movement Gastrointestinal: normoactive bowel sounds, soft, non-tender abdomen Skin: warm Musculoskeletal: generalized weakness Neurologic: AAOx3 Psychiatric: interacting appropriately ICD10 Worksheet Patient Problems: Problems Problem Status Onset Acute pancreatitis Acute
[2017-02-02] MEDS ORDERED: HALOPERIDOL LACT 5 MG/ML INJ IVP ONE (10:00)
[2017-02-02] MEDS: IPRATROPIUM/ALBUTEROL 3 ML DEYVIAL IH PRN ×2 (12:16→16:56)
[2017-02-02 18:33] LABS: POTASSIUM 3.8 mEq/L (3.5-5.2)
[2017-02-02] MEDS: 1/2 NS 1,000 ML IV SCH (21:03)
[2017-02-02] MEDS: FAMOTIDINE 20 MG TAB PO SCH (21:04)
[2017-02-02] MEDS: MIRTAZAPINE 30 MG TAB PO SCH (21:05)
[2017-02-02] MEDS ORDERED: POTASSIUM Cl (KCl) 100 ML IV ONE (22:00)
[2017-02-02] MEDS: ONDANSETRON 4 MG/2 ML VIAL IVP PRN (22:58)
[2017-02-03] MEDS: PROMETHAZINE HCL 25 MG/ML INJ IVP PRN (00:24)
[2017-02-03 01:19] LABS: POTASSIUM 4.3 mEq/L (3.5-5.2)
[2017-02-03] MEDS: FUROSEMIDE 20 MG/2 ML VIAL IVP SCH ×3 (05:37→21:32)
[2017-02-03 05:43] LABS: ANION GAP 6 mEq/L (8-16); CALCIUM 10.4 mg/dL (8.5-10.4); CARBON DIOXIDE 29 mEq/l (22-31); CHLORIDE 98 mEq/L (97-110); CREATININE 0.5 mg/dL (0.7-1.3); GLOMERULAR FILTRATION RATE > 60; GLUCOSE 150 mg/dL (70-100); POTASSIUM 4.1 mEq/L (3.5-5.2); SODIUM 133 mEq/L (134-144)
[2017-02-03] MEDS: ENOXAPARIN 40 MG/0.4 ML SYR SC SCH (08:05)
[2017-02-03] MEDS: GABAPENTIN 300 MG CAP PO SCH ×2 (08:06→21:27)
[2017-02-03] MEDS: busPIRone 5 MG TAB PO SCH ×2 (08:06→21:38)
[2017-02-03] MEDS: ERTAPENEM 1 GM in NS 100 ML IV SCH (08:08)
[2017-02-03] MEDS: NICOTINE 21 MG/24 HR PATCH TD SCH (08:08)
[2017-02-03] MEDS: FAMOTIDINE 20 MG TAB PO SCH (08:08)
[2017-02-03] MEDS: methylPREDNISolone SOD SUCC 40 MG/ML VIAL IVP SCH (08:08)
[2017-02-03] MEDS: THIAMINE HCL 100 MG TAB PO SCH (08:08)
[2017-02-03] MEDS: SENNOSIDES/DOCUSATE SODIUM TAB PO SCH ×2 (08:08→21:27)
--- NOTE | 2017-02-03 16:11 | ASMTCMCOM ---
CM Note CM Note Notes: Patient sitting up in chair today talking to staff. Issues: sepsis-aspiration PNA, COPD, JO-ANN, 7 lits of O2, nicoderm patch. Invited to "Family Meeting", she would like patient's son to attend, meeting set up for Tues at 12:00. Therapies recommending SNF vs In-pt Rehab at this time. Date Signed: 02/03/2017 04:10 PM Electronically Signed By:Denise Johnston LCSW
[2017-02-03] MEDS: IPRATROPIUM/ALBUTEROL 3 ML DEYVIAL IH PRN (16:59)
--- NOTE | 2017-02-03 17:27 | HOSPPROG ---
Hospitalist Progress Note Assessment/Plan: * Acute on chronic respiratory failure - 5L baseline -s/p extubation * Pneumonia with severe sepsis - MSSA -IV invanz * COPD exacerbation -prednisone, nebs -ongoing tobacco - advise cessation * Acute on chronic diastolic CHF -IV lasix * Etoh withdrawal - severe -weaned off benzos * Obesity / JO-ANN - home CPAP * Afib - now back NSR -[id number] = 0 to 1 - ASA -low dose beta-amy * Etoh pancreatitis * Metabolic encephalopathy * Polycythemia s/p phlebotomy -suspect O2 non-compliance * Hypercalcemia due to mild primary hyperparathyroidism -outpatient follow-up Subjective: no complaints. Objective: Vital Signs Temp Pulse Resp BP Pulse Ox 36.7 C 95 17 112/82 H 90 L 02/03/17 16:00 02/03/17 16:00 02/03/17 16:00 02/03/17 16:00 02/03/17 16:00 Laboratory Results 01/31/17 04:00 02/03/17 11:40 02/02/17 02/03/17 02/04/17 05:59 05:59 05:59 Intake Total 2549.8 1640 254 Output Total 3200 4150 1275 Balance -650.2 -2510 -1021 PT 13.2 SEC (12.0-15.0) 01/24/17 01:10 INR 1.01 (0.83-1.16) 01/24/17 01:10 d/w Dr. Car Birch ICU rounds regarding stability for floor CTA chest - no PE - Physical Exam Constitutional: no apparent distress, appears nourished, not in pain Cardiovascular: regular rate and rhythym, no murmur, rub, or gallop Respiratory: no respiratory distress, no rales or rhonchi, clear to auscultation Gastrointestinal: normoactive bowel sounds, soft, non-tender abdomen, no palpable masses Skin: no rashes or abrasions, no fluctuance, no induration Neurologic: AAOx3, sensation intact bilaterally Psychiatric: interacting appropriately, not anxious, not encephalopathic, thought process linear ICD10 Worksheet Patient Problems: Problems Problem Status Onset Acute pancreatitis Acute
[2017-02-03] MEDS: METOPROLOL TARTRATE 25 MG TAB PO SCH (21:27)
[2017-02-03] MEDS: busPIRone 15 MG TAB PO SCH (21:28)
[2017-02-03] MEDS: MIRTAZAPINE 30 MG TAB PO SCH (21:28)
[2017-02-04] MEDS: FUROSEMIDE 20 MG/2 ML VIAL IVP SCH ×2 (05:45→13:52)
[2017-02-04] MEDS: IPRATROPIUM/ALBUTEROL 3 ML DEYVIAL IH PRN ×2 (05:58→16:17)
[2017-02-04 06:16] LABS: ADD DIFF? YES; ADD MORPH? NO; ADD SCAN? NO; ATYPICAL LYMPHOCYTE FLAG 0 (0-99); FRAGMENT RBC FLAG 0 (0-99); HEMATOCRIT 50.8 % (40.0-51.0); HEMOGLOBIN 18.5 g/dL (13.7-17.5); LEFT SHIFT FLG 30 (0-99); LIPEMIA HEMOLYSIS FLAG 90 (0-99); MEAN CELL HEMOGLOBIN 36.3 pg (27.9-34.1); MEAN CELL HEMOGLOBIN CONCENTR. 36.4 g/dL (32.4-36.7); MEAN CELL VOLUME 99.8 fL (81.5-99.8); MEAN PLATELET VOLUME 12.6 fL (8.7-11.7); PLATELET CLUMPS FLAG 0 (0-99); PLATELET COUNT 220 10^3/uL (150-400); RED BLOOD CELL COUNT 5.09 10^6/uL (4.40-6.38); RED CELL DISTRIBUTION WIDTH 12.8 % (11.5-15.2)
[2017-02-04 06:32] LABS: ANION GAP 12 mEq/L (8-16); CARBON DIOXIDE 30 mEq/l (22-31); CHLORIDE 96 mEq/L (97-110); CREATININE 0.6 mg/dL (0.7-1.3); GLOMERULAR FILTRATION RATE > 60; GLUCOSE 127 mg/dL (70-100); POTASSIUM 3.5 mEq/L (3.5-5.2); SODIUM 138 mEq/L (134-144)
[2017-02-04 08:09] LABS: PLATELET ESTIMATE ADEQUATE (ADEQ)
[2017-02-04] MEDS: ERTAPENEM 1 GM in NS 100 ML IV SCH (08:54)
[2017-02-04] MEDS: NICOTINE 21 MG/24 HR PATCH TD SCH (09:43)
[2017-02-04] MEDS: GABAPENTIN 300 MG CAP PO SCH ×2 (09:44→21:21)
[2017-02-04] MEDS: predniSONE 20 MG TAB PO SCH (09:45)
[2017-02-04] MEDS: METOPROLOL TARTRATE 25 MG TAB PO SCH ×2 (09:45→21:24)
[2017-02-04] MEDS: THIAMINE HCL 100 MG TAB PO SCH (09:45)
[2017-02-04] MEDS: busPIRone 15 MG TAB PO SCH ×2 (09:45→21:21)
[2017-02-04] MEDS: ASPIRIN EC 325 MG TAB PO SCH (09:45)
[2017-02-04] MEDS: ENOXAPARIN 40 MG/0.4 ML SYR SC SCH (09:45)
[2017-02-04] MEDS: SENNOSIDES/DOCUSATE SODIUM TAB PO SCH (09:45)
[2017-02-04] MEDS: TIOTROPIUM INHALER 18 MCG/DOSE 5 DOSE/MDI IH SCH (10:06)
[2017-02-04] MEDS: FLUTICASONE/SALMETER 250/50MCG DISKUS IH SCH ×2 (10:24→21:01)
[2017-02-04] MEDS ORDERED: PROTOCOL POTASSIUM 1 DOSE MISC PRN (10:56)
[2017-02-04 11:54] LABS: BICARBONATE 28 mEq/L (22-26); MEASURED OXYGEN SATURATION 89 % (92-95); PCO2 40 mmHg (34-38); PO2 58 mmHg (65-75); TCO2 29 mEq/L (23-27)
[2017-02-04 11:56] LABS: O2 CONCENTRATIION 10 % (0-100); P/F RATIO 580 RATIO
--- NOTE | 2017-02-04 11:57 | CPEKG ---
Heart Rate: 97 RR Interval: 619 P-R Interval: 152 QRSD Interval: 90 QT Interval: 336 QTC Interval: 427 P Casper: 44 QRS Casper: -16 T Wave Casper: 33 EKG Severity - BORDERLINE ECG - EKG Impression: SINUS RHYTHM EKG Impression: PROBABLE LEFT ATRIAL ABNORMALITY EKG Impression: BORDERLINE LEFT AXIS DEVIATION Electronically Signed By: Sly Macario 06-Feb-2017 13:56:20
[2017-02-04 12:05] LABS: POTASSIUM 3.5 mEq/L (3.5-5.2)
[2017-02-04 12:20] LABS: TROPONIN I < 0.012 ng/mL (0.000-0.034)
[2017-02-04] MEDS: ACETAMINOPHEN 325 MG TAB PO PRN ×2 (13:50→17:59)
--- NOTE | 2017-02-04 14:03 | HOSPPROG ---
Hospitalist Progress Note Assessment/Plan: Worsening respiratory status overnight. Now on 15L with sats only in high 80s. c/o increased SOB. Increase tachycardia (sinus) and leukocytosis as well. CXR with persistent bilateral infiltrates - ? CHF. Check ABG and lactate. Previous CTA this admission negative for PE. Check bilateral LE US r/o DVT. Given instability will transfer back to ICU for closer monitoring. * Acute on chronic respiratory failure - 5L baseline -s/p extubation -worsening - per discussion above * Pneumonia with severe sepsis - MSSA -IV invanz * COPD exacerbation -prednisone, nebs -ongoing tobacco - advise cessation * Acute on chronic diastolic CHF -IV lasix * Etoh withdrawal - severe -weaned off benzos * Obesity / JO-ANN - home CPAP * Afib - now back NSR -[id number] = 0 to 1 - ASA -low dose beta-amy * Etoh pancreatitis * Metabolic encephalopathy * Polycythemia s/p phlebotomy -suspect O2 non-compliance * Hypercalcemia due to mild primary hyperparathyroidism -outpatient follow-up CC time spent - 50 minutes Subjective: Increase SOB and increased respiratory distress overnight. No chest pain. Some diarrhea. Objective: Vital Signs Temp Pulse Resp BP Pulse Ox 36.8 C 97 25 H 108/67 89 L 02/04/17 12:00 02/04/17 12:00 02/04/17 12:00 02/04/17 12:00 02/04/17 12:00 Laboratory Results 02/04/17 05:55 02/04/17 11:15 02/03/17 02/04/17 02/05/17 05:59 05:59 05:59 Intake Total 1640 754 400 Output Total 4150 2625 Balance -2510 -1871 400 PT 13.2 SEC (12.0-15.0) 01/24/17 01:10 INR 1.01 (0.83-1.16) 01/24/17 01:10 CXR viewed, my personal interpretation is - persistent bilateral infiltrates EKG - sinus, no ischemic ST changes tele - NSR, no afib d/w Dr. Birch - notified regarding return to ICU - Physical Exam Constitutional: not in pain, obese, uncomfortable, unkempt Cardiovascular: tachycardia, No systolic murmur, No JVD, No edema Respiratory: inspiratory crackles, respiratory distress, No expiratory wheeze, No rhonchi Gastrointestinal: normoactive bowel sounds, soft, non-tender abdomen, no palpable masses Skin: no rashes or abrasions, no fluctuance, no induration Neurologic: AAOx3, sensation intact bilaterally Psychiatric: interacting appropriately, not anxious, not encephalopathic, thought process linear ICD10 Worksheet Patient Problems: Problems Problem Status Onset Acute pancreatitis Acute
--- NOTE | 2017-02-04 17:03 | ASMTCMCOM ---
CM Note CM Note Notes: Patient returned to ICU due to worsening respiratory status. Had a "Family Meeting" with , son, mother, brother. Patient had a work related back injury 10 years ago. He was started on narcotics but was able to discontinue that dependency. Son reports that patient has a dx of Bipolar and JO-ANN. He is not being tx for his Bipolar and occasionally uses his c-pap machine. Family feels that although patient wasn't a smoker or drinker in the past and quite physically active, he has now turned to alcohol and smoking to assist with his anxiety, pain and insomnia and has become quite isolative. Left message for Behavior Health RN to visit patient. Patient needs help with life style changes. Very weak, might be motivated enough for In-pt Rehab. Date Signed: 02/04/2017 05:02 PM Electronically Signed By:Denise Johnston LCSW
[2017-02-04] MEDS: ONDANSETRON 4 MG/2 ML VIAL IVP PRN (18:07)
[2017-02-04 18:55] LABS: POTASSIUM 4.6 mEq/L (3.5-5.2)
[2017-02-04 19:10] LABS: TROPONIN I < 0.012 ng/mL (0.000-0.034)
[2017-02-04] MEDS: MIRTAZAPINE 30 MG TAB PO SCH (21:22)
[2017-02-05 06:04] LABS: % IMMATURE GRANULYOCYTES 1.5 % (0.0-1.1); ABSOLUTE IMMATURE GRANULOCYTES 0.27 10^3/uL (0.00-0.10); ADD DIFF? NO; ADD MORPH? NO; ADD SCAN? NO; ATYPICAL LYMPHOCYTE FLAG 0 (0-99); FRAGMENT RBC FLAG 0 (0-99); HEMATOCRIT 46.4 % (40.0-51.0); HEMOGLOBIN 16.3 g/dL (13.7-17.5); LEFT SHIFT FLG 10 (0-99); LIPEMIA HEMOLYSIS FLAG 90 (0-99); MEAN CELL HEMOGLOBIN 35.4 pg (27.9-34.1); MEAN CELL HEMOGLOBIN CONCENTR. 35.1 g/dL (32.4-36.7); MEAN CELL VOLUME 100.7 fL (81.5-99.8); MEAN PLATELET VOLUME 12.3 fL (8.7-11.7); PLATELET CLUMPS FLAG 0 (0-99); PLATELET COUNT 209 10^3/uL (150-400); RED BLOOD CELL COUNT 4.61 10^6/uL (4.40-6.38); RED CELL DISTRIBUTION WIDTH 12.7 % (11.5-15.2)
[2017-02-05 06:21] LABS: TROPONIN I < 0.012 ng/mL (0.000-0.034)
[2017-02-05 07:31] LABS: ANION GAP 8 mEq/L (8-16); CALCIUM 10.9 mg/dL (8.5-10.4); CARBON DIOXIDE 28 mEq/l (22-31); CHLORIDE 99 mEq/L (97-110); CREATININE 0.6 mg/dL (0.7-1.3); GLOMERULAR FILTRATION RATE > 60; GLUCOSE 166 mg/dL (70-100); POTASSIUM 3.4 mEq/L (3.5-5.2); SODIUM 135 mEq/L (134-144)
[2017-02-05] MEDS: FUROSEMIDE 20 MG/2 ML VIAL IVP SCH (08:47)
[2017-02-05] MEDS: METOPROLOL TARTRATE 25 MG TAB PO SCH ×2 (08:48→22:20)
[2017-02-05] MEDS: busPIRone 15 MG TAB PO SCH ×2 (08:48→22:19)
[2017-02-05] MEDS: GABAPENTIN 300 MG CAP PO SCH ×2 (08:48→22:17)
[2017-02-05] MEDS: predniSONE 20 MG TAB PO SCH (08:48)
[2017-02-05] MEDS: THIAMINE HCL 100 MG TAB PO SCH (08:48)
[2017-02-05] MEDS: ASPIRIN EC 325 MG TAB PO SCH (08:50)
[2017-02-05] MEDS: NICOTINE 21 MG/24 HR PATCH TD SCH (08:50)
[2017-02-05] MEDS: ENOXAPARIN 40 MG/0.4 ML SYR SC SCH (08:50)
[2017-02-05 09:22] LABS: CALCULATED OXYGEN SATURATION 90 % (92-95)
[2017-02-05] MEDS: FLUTICASONE/SALMETER 250/50MCG DISKUS IH SCH ×2 (09:44→21:26)
[2017-02-05] MEDS: TIOTROPIUM INHALER 18 MCG/DOSE 5 DOSE/MDI IH SCH (09:45)
--- NOTE | 2017-02-05 14:32 | HOSPPROG ---
Hospitalist Progress Note Assessment/Plan: * Acute on chronic respiratory failure - 5L baseline (although he never wears it) -s/p extubation -now still high O2 16L - unclear etiology of worsening -start IS/pulm hygiene -consider restart abx for PNA but just completed 10 days of Invanz * Pneumonia with severe sepsis - MSSA -s/p 10 days IV invanz * COPD exacerbation -prednisone, nebs -ongoing tobacco - advise cessation * Acute on chronic diastolic CHF -BNP normal - will stop Lasix -s/p good diuresis - now euvolemic * Etoh withdrawal - severe -weaned off benzos * Obesity / JO-ANN - home CPAP (non-compliant) * Afib - now back NSR -[id number] = 0 to 1 - ASA -low dose beta-amy * Etoh pancreatitis * Metabolic encephalopathy - resolved * Polycythemia s/p phlebotomy -patient admits to O2 non-compliance - wears it only a couple hours per day * Hypercalcemia due to mild primary hyperparathyroidism -outpatient follow-up Subjective: Still a little SOB Objective: Vital Signs Temp Pulse Resp BP Pulse Ox 36.7 C 102 H 22 H 105/67 87 L 02/05/17 08:00 02/05/17 12:00 02/05/17 12:00 02/05/17 12:00 02/05/17 12:00 Laboratory Results 02/05/17 05:45 02/05/17 05:45 02/04/17 02/05/17 02/06/17 05:59 05:59 05:59 Intake Total 754 1400 Output Total 2625 1250 Balance -1871 150 PT 13.2 SEC (12.0-15.0) 01/24/17 01:10 INR 1.01 (0.83-1.16) 01/24/17 01:10 CXR viewed, my personal interpretation is - no CHF, minimal infiltrate d/w Dr. Car Birch ICU rounds - ? Pneumonia - Physical Exam Constitutional: no apparent distress, appears nourished, not in pain Cardiovascular: regular rate and rhythym, no murmur, rub, or gallop Respiratory: no respiratory distress, no rales or rhonchi, clear to auscultation Gastrointestinal: normoactive bowel sounds, soft, non-tender abdomen, no palpable masses Skin: no rashes or abrasions, no fluctuance, no induration Neurologic: AAOx3, sensation intact bilaterally Psychiatric: interacting appropriately, not anxious, not encephalopathic, thought process linear ICD10 Worksheet Patient Problems: Problems Problem Status Onset Acute pancreatitis Acute
[2017-02-05] MEDS: ONDANSETRON 4 MG/2 ML VIAL IVP PRN (15:10)
--- NOTE | 2017-02-05 15:57 | ASMTCMCOM ---
CM Note CM Note Notes: Chart reviewed. Pt reviewed in rounds this am. Oxygen needs remain high. Per certified professional ergonomist patient wanted resounces for alcohol addiction recovery. He has Medicare, patient given list of resources. He is not inclined to seek an inpatient treatment program at this time. He and his family will consider the best availble options available to them. CM to follow, Date Signed: 02/05/2017 03:56 PM Electronically Signed By:Briseyda Carrillo RN
[2017-02-05] MEDS ORDERED: POTASSIUM CL 10 MEQ TAB PO ONE (16:42)
[2017-02-05] MEDS ORDERED: ERTAPENEM 1 GM in NS 100 ML IV ONE (18:02)
--- NOTE | 2017-02-05 18:09 | PDINTPN ---
Processing Engineer Progress Note Assessment/Plan: Assessment: * Acute respiratory failure: Moved back to the intensive care unit secondary to higher oxygen requirements. He was down to 5 L when sent out of the unit the day before yesterday. Moved back now with oxygen needs at 15 L. He does report an episode of emesis with aspiration on the floor. Chest x-ray shows increased bibasilar infiltrates and atelectasis however he has little in the way of infectious symptoms. He is not febrile, white blood cell count is down from 20 to 18. His increased oxygen requirements are likely secondary to aspiration pneumonitis without significant recurrent pneumonia. He completed a 10 day course of ertapenem. It would not be unreasonable to continue this for 14 days. There is no evidence of congestive heart failure. He has been aggressively diuresed over the last 4-5 days and BNP is low. As he does have underlying chronic obstructive pulmonary disease increasing steroids may be of benefit, however he is not significantly wheezing nor is he tight. There is no significant clinical suspicion for pulmonary embolic disease is. Lower extremity venous ultra sounds are negative and he has been on prophylactic anticoagulation. * Alcoholism. Has been drinking heavily for at least a month prior to admit. Appears to be over alcohol withdrawal at this point. * Obstructive sleep apnea; Has CPAP (or possibly ASV), but had been non- compliant, using it only a few times/week. Has not had follow-up to assess efficacy of treatment in years. * Polycythemia-Improved after phlebotomy. * Chronic obstructive pulmonary disease- Has been smoking>1 ppd recently -continue bronchodilators, will increase steroids with Solu-Medrol 60 IV q.6 and follow closely * VT prophylaxis, Stress ulcer prophylaxis * ? AF. No further episodes * HTN: Borderline. Well controlled * Hypercalcemia: Likely due to hyperparathyroidism. Ionized Ca quite high, could be symptomatic. Plan: The patient will be observed closely in the intensive care unit. Ertapenem will be continued for a total of 14 days. Prednisone will be stopped and Solu-Medrol at 60 mg IV q.6 hours will be started. We can maybe decrease this as soon as tomorrow. Bronchopulmonary therapies will be continued. Inspiratory spirometry will be encouraged. Chest x-ray and laboratory will be followed. All the above was discussed with the patient and his family, respiratory, the hospitalist, and the ICU multi disciplinary team. 45 minutes of critical care time was spent directly with the patient. Subjective: In chair, doing okay. Denies significant shortness breath. A vacant cough or mucus. Denies chest pain. Remains on high-flow O2. Objective: Vital Signs Temp Pulse Resp BP Pulse Ox 36.5 C 98 15 118/67 93 02/05/17 16:00 02/05/17 16:00 02/05/17 16:00 02/05/17 16:00 02/05/17 16:00 Laboratory Results 02/05/17 05:45 02/05/17 05:45 02/04/17 02/05/17 02/06/17 05:59 05:59 05:59 Intake Total 754 1400 Output Total 2625 1250 Balance -1871 150 PT 13.2 SEC (12.0-15.0) 01/24/17 01:10 INR 1.01 (0.83-1.16) 01/24/17 01:10 Physical Exam - Physical Exam General Appearance: alert, no apparent distress, other (On OxyMask) EENT: PERRL/EOMI, other (OxyMask in place) Neck: normal inspection Respiratory: lungs clear (Anteriorly), decreased breath sounds (At bases), rales (Few bibasilar rales, nonspecific), wheezing (Minimal), No rhonchi (Mild central congestion with cough) Cardiac/Chest: regular rate, rhythm (Tachycardic, sinus rhythm at times.) Abdomen: normal bowel sounds, non-tender, soft Male Genitalia: other (No Ribeiro catheter, using urinal) Skin: normal color, warm/dry Extremities: No pedal edema Neuro/Psych: no motor/sensory deficits, No cognition abnormalities ICD10 Worksheet Patient Problems: Problems Problem Status Onset Acute pancreatitis Acute
[2017-02-05] MEDS: IPRATROPIUM/ALBUTEROL 3 ML DEYVIAL IH SCH (21:26)
[2017-02-05] MEDS: MIRTAZAPINE 30 MG TAB PO SCH (22:19)
[2017-02-05] MEDS: methylPREDNISolone SOD SUCC 125 MG/2 ML VIAL IVP SCH (23:54)
[2017-02-06] MEDS: IPRATROPIUM/ALBUTEROL 3 ML DEYVIAL IH SCH ×4 (05:58→20:56)
[2017-02-06 06:11] LABS: BASE EXCESS 2.9 mEq/L (-2.5-2.5); BICARBONATE 27 mEq/L (22-26); MEASURED OXYGEN SATURATION 87 % (92-95); PCO2 42 mmHg (34-38); PO2 53 mmHg (65-75); TCO2 29 mEq/L (23-27)
[2017-02-06 06:19] LABS: % IMMATURE GRANULYOCYTES 1.9 % (0.0-1.1); ADD DIFF? NO; ADD MORPH? NO; ADD SCAN? NO; ATYPICAL LYMPHOCYTE FLAG 0 (0-99); FRAGMENT RBC FLAG 0 (0-99); HEMATOCRIT 44.4 % (40.0-51.0); HEMOGLOBIN 15.8 g/dL (13.7-17.5); LEFT SHIFT FLG 10 (0-99); LIPEMIA HEMOLYSIS FLAG 90 (0-99); MEAN CELL HEMOGLOBIN 36.2 pg (27.9-34.1); MEAN CELL HEMOGLOBIN CONCENTR. 35.6 g/dL (32.4-36.7); MEAN CELL VOLUME 101.6 fL (81.5-99.8); MEAN PLATELET VOLUME 12.6 fL (8.7-11.7); PLATELET CLUMPS FLAG 10 (0-99); PLATELET COUNT 215 10^3/uL (150-400); RED BLOOD CELL COUNT 4.37 10^6/uL (4.40-6.38); RED CELL DISTRIBUTION WIDTH 12.6 % (11.5-15.2)
[2017-02-06] MEDS: methylPREDNISolone SOD SUCC 125 MG/2 ML VIAL IVP SCH ×3 (06:24→18:29)
[2017-02-06 06:34] LABS: ANION GAP 8 mEq/L (8-16); CALCIUM 10.8 mg/dL (8.5-10.4); CARBON DIOXIDE 29 mEq/l (22-31); CHLORIDE 97 mEq/L (97-110); CREATININE 0.5 mg/dL (0.7-1.3); GLOMERULAR FILTRATION RATE > 60; GLUCOSE 225 mg/dL (70-100); POTASSIUM 4.7 mEq/L (3.5-5.2); SODIUM 134 mEq/L (134-144)
[2017-02-06] MEDS: ASPIRIN EC 325 MG TAB PO SCH (09:20)
[2017-02-06] MEDS: METOPROLOL TARTRATE 25 MG TAB PO SCH ×2 (09:21→21:24)
[2017-02-06] MEDS: busPIRone 15 MG TAB PO SCH ×2 (09:24→21:18)
[2017-02-06] MEDS: THIAMINE HCL 100 MG TAB PO SCH (09:26)
[2017-02-06] MEDS: GABAPENTIN 300 MG CAP PO SCH ×2 (09:27→21:18)
[2017-02-06] MEDS: ENOXAPARIN 40 MG/0.4 ML SYR SC SCH (09:28)
[2017-02-06] MEDS: ERTAPENEM 1 GM in NS 100 ML IV SCH (09:28)
[2017-02-06] MEDS: NICOTINE 21 MG/24 HR PATCH TD SCH (09:31)
[2017-02-06] MEDS: TIOTROPIUM INHALER 18 MCG/DOSE 5 DOSE/MDI IH SCH (11:45)
[2017-02-06] MEDS: FLUTICASONE/SALMETER 250/50MCG DISKUS IH SCH ×2 (11:45→20:58)
--- NOTE | 2017-02-06 13:22 | PDINTPN ---
Straightening Machine Operator Progress Note Assessment/Plan: Assessment: * Acute respiratory failure: Moved back to the intensive care unit secondary to higher oxygen requirements. He was down to 5 L when sent out of the unit . Moved back with oxygen needs at 15 L. He does report an episode of emesis with aspiration on the floor. Chest x-ray shows increased markings with vague bibasilar infiltrates and atelectasis however he has little in the way of infectious symptoms. He is not febrile, white blood cell count is down. His increased oxygen requirements are likely secondary to aspiration pneumonitis without significant recurrent pneumonia. He completed a 10 day course of ertapenem. It would not be unreasonable to continue this for 14 days. There is no evidence of congestive heart failure. He has been aggressively diuresed over the last 4-5 days and BNP is low. As he does have underlying chronic obstructive pulmonary disease increasing steroids may be of benefit, however he is not significantly wheezing nor is he tight. There is no significant clinical suspicion for pulmonary embolic disease. Lower extremity venous ultra sounds are negative and he has been on prophylactic anticoagulation. * Alcoholism. Has been drinking heavily for at least a month prior to admit. Appears to be over alcohol withdrawal at this point. * Obstructive sleep apnea; Has CPAP (or possibly ASV), but had been non- compliant, using it only a few times/week. Has not had follow-up. * ? AF. No further episodes * HTN: Borderline. Well controlled * Hypercalcemia: Likely due to hyperparathyroidism. Ionized Ca remains high. Plan: Continue observation in the intensive care unit. Ertapenem will be continued for a total of 14 days. Continue Solu-Medrol at 60 mg IV q.6 hours for now. Bronchopulmonary therapies will be continued. Inspiratory spirometry will be encouraged. Mobilization will be increased. Chest x-ray and laboratory will be followed. All the above was discussed with the patient and his family, respiratory, the hospitalist, and the ICU multi disciplinary team. 35 minutes of critical care time was spent directly with the patient. Discussed with the patient family, the nursing, and the ICU multi disciplinary team. Subjective: In chair. He complains of fatigue and weakness, some dyspnea with exertion. Occasional cough, dry. Not bringing up any mucus. Denies chest pain. Objective: Vital Signs Temp Pulse Resp BP Pulse Ox 36.5 C 93 27 H 119/63 87 L 02/06/17 12:00 02/06/17 12:00 02/06/17 12:00 02/06/17 12:00 02/06/17 12:00 Laboratory Results 02/06/17 05:45 02/06/17 05:45 02/05/17 02/06/17 02/07/17 05:59 05:59 05:59 Intake Total 1400 1000 Output Total 1250 Balance 150 1000 PT 13.2 SEC (12.0-15.0) 01/24/17 01:10 INR 1.01 (0.83-1.16) 01/24/17 01:10 CXR: No change, increased markings. Not a great inspiration. Physical Exam - Physical Exam General Appearance: alert, no apparent distress EENT: other (OxyMask at 8 L) Neck: normal inspection (No JVD) Respiratory: lungs clear (Anteriorly), decreased breath sounds (At bases, but overall he is moving reasonable air.), rales (Minimal, nonspecific at bases), No rhonchi, No wheezing (No significant wheezing) Cardiac/Chest: regular rate, rhythm Abdomen: normal bowel sounds, non-tender, soft Skin: normal color, warm/dry Extremities: No pedal edema Neuro/Psych: no motor/sensory deficits, No cognition abnormalities ICD10 Worksheet Patient Problems: Problems Problem Status Onset Acute pancreatitis Acute
--- NOTE | 2017-02-06 14:45 | ASMTCMCOM ---
CM Note CM Note Notes: Patient is here withacute pancreatitis, respiratory failure and ETOH withdrawal. He has a supportive family, spiritual services has been following as well. Patient reports he is having trouble with home oxygen companies and financial I spoke with [employer] in [place] and patient has a balance of 530.00 with them. His Medicare Part B has lapsed per pt due to his inability to pay. He reports he lost his SSDI when he tried to return to gainful employment. He resists my suggestion to call Medicare and the oxygen company and became agitated. I have asked our financial department to screen him for Medicaid. CM to follow Date Signed: 02/06/2017 02:42 PM Electronically Signed By:Briseyda Carrillo RN
--- NOTE | 2017-02-06 16:16 | HOSPPROG ---
Hospitalist Progress Note Assessment/Plan: * Acute on chronic respiratory failure - 5L baseline (although he never wears it) -s/p extubation -back to ICU for 16L O2 requirement - suspect recurrent aspiration event -continue IV Invanz 14 days -weaning O2 * Pneumonia with severe sepsis - MSSA -IV invanz * COPD exacerbation -prednisone, nebs -ongoing tobacco - advise cessation * Acute on chronic diastolic CHF -BNP normal - now off lasix -s/p good diuresis - now euvolemic * Etoh withdrawal - severe -weaned off benzos * Obesity / JO-ANN - home CPAP (non-compliant) * Afib - now back NSR -[id number] = 0 to 1 - ASA -low dose beta-amy * Etoh pancreatitis * Metabolic encephalopathy - resolved * Polycythemia s/p phlebotomy -patient admits to O2 non-compliance - wears it only a couple hours per day * Hypercalcemia due to mild primary hyperparathyroidism -outpatient follow-up Subjective: No new complaints. Objective: Vital Signs Temp Pulse Resp BP Pulse Ox 36.9 C 92 25 H 125/67 H 91 L 02/06/17 16:00 02/06/17 16:00 02/06/17 16:00 02/06/17 16:00 02/06/17 16:00 Laboratory Results 02/06/17 05:45 02/06/17 05:45 02/05/17 02/06/17 02/07/17 05:59 05:59 05:59 Intake Total 1400 1000 Output Total 1250 Balance 150 1000 PT 13.2 SEC (12.0-15.0) 01/24/17 01:10 INR 1.01 (0.83-1.16) 01/24/17 01:10 CXR viewed, my personal interpretation is - persistent bilateral infiltrates d/w Dr. Birch - patient is improving on current therapy - Physical Exam Constitutional: no apparent distress, appears nourished, not in pain Cardiovascular: regular rate and rhythym, no murmur, rub, or gallop Respiratory: no respiratory distress, no rales or rhonchi, clear to auscultation Gastrointestinal: normoactive bowel sounds, soft, non-tender abdomen, no palpable masses Skin: no rashes or abrasions, no fluctuance, no induration Neurologic: AAOx3, sensation intact bilaterally Psychiatric: interacting appropriately, not anxious, not encephalopathic, thought process linear ICD10 Worksheet Patient Problems: Problems Problem Status Onset Acute pancreatitis Acute
[2017-02-06 19:12] LABS: POTASSIUM 4.4 mEq/L (3.5-5.2)
[2017-02-06] MEDS: MIRTAZAPINE 30 MG TAB PO SCH (21:18)
[2017-02-07] MEDS: methylPREDNISolone SOD SUCC 125 MG/2 ML VIAL IVP SCH ×4 (00:15→17:34)
[2017-02-07] MEDS: IPRATROPIUM/ALBUTEROL 3 ML DEYVIAL IH SCH ×4 (05:32→20:05)
[2017-02-07 05:59] LABS: POTASSIUM 4.6 mEq/L (3.5-5.2)
[2017-02-07] MEDS: ASPIRIN EC 325 MG TAB PO SCH (09:13)
[2017-02-07] MEDS: busPIRone 15 MG TAB PO SCH ×2 (09:13→21:27)
[2017-02-07] MEDS: ENOXAPARIN 40 MG/0.4 ML SYR SC SCH (09:14)
[2017-02-07] MEDS: METOPROLOL TARTRATE 25 MG TAB PO SCH ×2 (09:16→21:27)
[2017-02-07] MEDS: NICOTINE 21 MG/24 HR PATCH TD SCH (09:18)
[2017-02-07] MEDS: THIAMINE HCL 100 MG TAB PO SCH (09:20)
[2017-02-07] MEDS: GABAPENTIN 300 MG CAP PO SCH ×2 (09:20→21:26)
[2017-02-07] MEDS: TIOTROPIUM INHALER 18 MCG/DOSE 5 DOSE/MDI IH SCH (09:21)
[2017-02-07] MEDS: FLUTICASONE/SALMETER 250/50MCG DISKUS IH SCH ×2 (09:22→20:05)
[2017-02-07] MEDS: ERTAPENEM 1 GM in NS 100 ML IV SCH (09:46)
--- NOTE | 2017-02-07 11:34 | ASMTCMCOM ---
CM Note CM Note Notes: Chart reviewed. Also discussed patient in rounds. Per PT and OT they recommend SNF as patient has limited activity tolerances. His gait is unsteady and he requires 4 wheeled walker. He is adamant about going home. Veron[place] in room talking to pt. He has poor insight to his situation and he states his family is around hime all the time. I will talk to him about [facility] services, CM to follow. Date Signed: 02/07/2017 11:33 AM Electronically Signed By:Briseyda Carrillo RN
--- NOTE | 2017-02-07 12:33 | CPEKG ---
Heart Rate: 84 RR Interval: 714 P-R Interval: 156 QRSD Interval: 94 QT Interval: 352 QTC Interval: 417 P [place]: 50 QRS [place]: 17 T Wave [place]: 21 EKG Severity - NORMAL ECG - EKG Impression: SINUS RHYTHM Electronically Signed By: Sly Macario 07-Feb-2017 13:52:24
[2017-02-07] MEDS ORDERED: NITROGLYCERIN 0.4 MG BTL SL ONE (12:52)
[2017-02-07] MEDS ORDERED: NITROGLYCERIN 0.4 MG BTL SL PRN (13:10)
[2017-02-07] MEDS ORDERED: FUROSEMIDE 40 MG TAB PO SCH (13:30)
[2017-02-07] MEDS ORDERED: REGADENOSON 0.4 MG/5 ML SYR IVP ONE (14:53)
--- NOTE | 2017-02-07 15:05 | PDINTPN ---
Quill Cleaning Machine Operator Progress Note Assessment/Plan: Assessment: * Acute respiratory failure: Improving now. Down to 6 L. Moved back to the intensive care unit secondary to higher oxygen requirements. He was down to 5 L when sent out of the unit 02/03. Moved back with oxygen needs at 15 L. He does report an episode of emesis with aspiration on the floor. Chest x-ray shows increased markings with vague bibasilar infiltrates and atelectasis however he has little in the way of infectious symptoms. He is not febrile, white blood cell count is down. His increased oxygen requirements are likely secondary to aspiration pneumonitis without significant recurrent pneumonia. He completed a 10 day course of ertapenem. It would not be unreasonable to continue this for 14 days. There is no evidence of congestive heart failure. He has been aggressively diuresed, is on lasix and BNP is low. As he does have underlying chronic obstructive pulmonary disease increasing steroids may be of benefit, however he is not significantly wheezing nor is he tight. There is no significant clinical suspicion for pulmonary embolic disease. Lower extremity venous ultra sounds are negative, previous CT angiogram was negative and he has been on prophylactic anticoagulation. * Alcoholism. Has been drinking heavily for at least a month prior to admit. Appears to be over alcohol withdrawal at this point. * Obstructive sleep apnea; Has CPAP (or possibly ASV), but had been non- compliant, using it only a few times/week. Has not had follow-up. * ? AF. No further episodes * HTN: Borderline. Well controlled * Hypercalcemia: Likely due to hyperparathyroidism. Ionized Ca remains high. Plan: Continue observation in the intensive care unit. Ertapenem will be continued for a total of 14 days. Continue Solu-Medrol bowl start to decrease. Bronchopulmonary therapies will be continued. Inspiratory spirometry will be encouraged. Mobilization will be increased. Chest x-ray and laboratory will be followed. All the above was discussed with the patient family, respiratory, the hospitalist, and the ICU multi disciplinary team. 30 minutes of critical care time was spent directly with the patient. Discussed with the patient family, the nursing, and the ICU multi disciplinary team. 02/07/17 15:31 Subjective: Remains dyspneic with exertional activities. Feels wiped gout. He has however up ambulating in the [place] with a walker and physical therapy. No significant cough or mucus. O2 needs have decreased. Now on 8 L. His baseline is 5. Objective: Vital Signs Temp Pulse Resp BP Pulse Ox 36.7 C 79 12 122/71 H 93 02/06/17 20:00 02/07/17 11:58 02/07/17 11:58 02/07/17 06:00 02/07/17 11:58 Laboratory Results 02/06/17 05:45 02/07/17 05:45 02/06/17 02/07/17 02/08/17 05:59 05:59 05:59 Intake Total 1000 500 Output Total 600 Balance 1000 -100 PT 13.2 SEC (12.0-15.0) 01/24/17 01:10 INR 1.01 (0.83-1.16) 01/24/17 01:10 CXR: Looks better, improving aeration and markings, with persistent but improving bibasilar atelectasis/infiltrate Physical Exam - Physical Exam General Appearance: alert, no apparent distress (Appears weak) EENT: PERRL/EOMI, other (Nasal cannula and now down to 6 L) Neck: normal inspection Respiratory: lungs clear (Anteriorly), decreased breath sounds (At bases but moving reasonable air.), rales (Few, scattered at bases), No rhonchi (No significant rhonchi. Minimal central congestion), No wheezing (Minimal, almost absent) Cardiac/Chest: regular rate, rhythm Abdomen: normal bowel sounds, non-tender, soft (Overweight) Male Genitalia: other (Using urinal) Back: Normal inspection Skin: normal color, warm/dry Extremities: pedal edema (Trace +) Neuro/Psych: no motor/sensory deficits (Moves all extremities equally, ambulatory.), No cognition abnormalities ICD10 Worksheet Patient Problems: Problems Problem Status Onset Acute pancreatitis Acute
--- NOTE | 2017-02-07 16:48 | HOSPPROG ---
Hospitalist Progress Note Assessment/Plan: * Acute on chronic respiratory failure - 5L baseline (although he never wears it) -s/p extubation -back to ICU for 16L O2 requirement - suspect recurrent aspiration event -continue IV Invanz 14 days -weaning O2 * Aspiration pneumonia with severe sepsis - MSSA -IV invanz * COPD exacerbation -IV solumedrol, nebs - change back to PO prednisone soon -ongoing tobacco - advise cessation * Acute on chronic diastolic CHF -s/p good diuresis - now euvolemic -PO Lasix * Chest pain - has intermittently in past - severe episode today -check nuc med stress test * Etoh withdrawal - severe -weaned off benzos * Obesity / JO-ANN - home CPAP (non-compliant) * Afib - now back NSR -[id number] = 0 to 1 - ASA -low dose beta-amy * Etoh pancreatitis * Metabolic encephalopathy - resolved * Polycythemia s/p phlebotomy -patient admits to O2 non-compliance - wears it only a couple hours per day * Hypercalcemia due to mild primary hyperparathyroidism -outpatient follow-up Subjective: Refusing SNF because he has too much to do. Had left sided CP today, 11/28, similar to past with no previous stress test. Some pleurtic component but it resolved spontaneouly in about 30 minutes, + SOB Objective: Vital Signs Temp Pulse Resp BP Pulse Ox 36.4 C 85 28 H 150/79 H 90 L 02/07/17 16:00 02/07/17 16:00 02/07/17 16:00 02/07/17 16:00 02/07/17 16:00 Laboratory Results 02/06/17 05:45 02/07/17 05:45 02/06/17 02/07/17 02/08/17 05:59 05:59 05:59 Intake Total 1000 500 Output Total 600 Balance 1000 -100 PT 13.2 SEC (12.0-15.0) 01/24/17 01:10 INR 1.01 (0.83-1.16) 01/24/17 01:10 EKG viewed, my personal interpretation is - NSR, no ischemic ST changes CXR - minimal infiltrate tele - NSR case dw dr magallanes ICU rounds - Physical Exam Constitutional: no apparent distress, appears nourished, not in pain Cardiovascular: regular rate and rhythym, no murmur, rub, or gallop Respiratory: no respiratory distress, no rales or rhonchi, clear to auscultation Gastrointestinal: normoactive bowel sounds, soft, non-tender abdomen, no palpable masses Skin: no rashes or abrasions, no fluctuance, no induration Neurologic: AAOx3, sensation intact bilaterally Psychiatric: interacting appropriately, not anxious, not encephalopathic, thought process linear ICD10 Worksheet Patient Problems: Problems Problem Status Onset Acute pancreatitis Acute
[2017-02-07 19:42] LABS: POTASSIUM 4.3 mEq/L (3.5-5.2)
[2017-02-07 19:55] LABS: TROPONIN I < 0.012 ng/mL (0.000-0.034)
[2017-02-07] MEDS: MIRTAZAPINE 30 MG TAB PO SCH (21:25)
--- NOTE | 2017-02-07 23:03 | CPR ---
[f rep st] NONINVASIVE CARDIAC PROCEDURE REPORT PROCEDURE: Lexiscan injection of Lexiscan myocardial perfusion imaging study. SUPERVISING CORPORATE QUALITY ENGINEER: Aga Lira MD INDICATION FOR PROCEDURE: COPD, tobacco abuse history, chest pressure. PRE: After obtaining informed consent, ensuring patient's n.p.o. status of caffeine for greater than 12 hours, patient was placed on electrocardiogram. Initial EKG shows sinus rhythm, normal axis, no ST or T-wave abnormalities suggestive of ischemia. The patient reports ongoing shortness of breath d ue to COPD, but denies any chest pain, pressure or symptoms suggesting of ischemia. INJECTION: Patient was given Lexiscan slow IV push followed by nuclear isotope. Patient reported wi thin 1 minute of Lexiscan injection, significant shortness of breath, heart rate became sinus tachyca rdic, but no arrhythmias, no significant ST changes. The patient was given caffeinated beverage to h elp reverse Lexiscan, and within 5 minutes, he reported all symptoms subsided. He denied at any time during testing of any symptoms suggesting of ischemia. Final blood pressure 119/68, final heart rat e 97, no change in electrocardiogram. IMPRESSION: A 61-year-old male with chronic obstructive pulmonary disease, admitted to the hospital since January 24, did have a prior episode of chest pressure, undergoing Lexiscan myocardial perfusion imaging study for evaluation for ischemia. The patient did report increased shortness of breath wit h initial injection, but improvement after caffeinated beverage, and all symptoms subsided toward the end. No arrhythmias. No significant EKG changes. His vital signs are stable. He will be taken do wn to Nuclear Medicine for post-stress imaging. /[id number]/MODL
[2017-02-08] MEDS: methylPREDNISolone SOD SUCC 125 MG/2 ML VIAL IVP SCH ×2 (01:09→06:35)
[2017-02-08 01:45] LABS: ALANINE AMINOTRANSFERASE 75 IU/L (21-72); ALKALINE PHOSPHATASE 99 IU/L (38-126); ANION GAP 12 mEq/L (8-16); ASPARTATE AMINOTRANSFERASE 34 IU/L (17-59); BILIRUBIN,TOTAL 0.6 mg/dL (0.1-1.4); BILIRUBIN-CONJUGATED 0.4 mg/dL (0.0-0.5); BILIRUBIN-UNCONJUGATED 0.2 mg/dL (0.0-1.1); CARBON DIOXIDE 25 mEq/l (22-31); CHLORIDE 100 mEq/L (97-110); CREATININE 0.5 mg/dL (0.7-1.3); GLOMERULAR FILTRATION RATE > 60; GLUCOSE 186 mg/dL (70-100); POTASSIUM 3.9 mEq/L (3.5-5.2); SODIUM 137 mEq/L (134-144); TOTAL PROTEIN 5.1 g/dL (6.3-8.2)
[2017-02-08 01:58] LABS: TROPONIN I < 0.012 ng/mL (0.000-0.034)
[2017-02-08] MEDS: IPRATROPIUM/ALBUTEROL 3 ML DEYVIAL IH SCH ×4 (05:30→21:48)
[2017-02-08 06:53] LABS: % IMMATURE GRANULYOCYTES 1.6 % (0.0-1.1); ABSOLUTE IMMATURE GRANULOCYTES 0.27 10^3/uL (0.00-0.10); ADD DIFF? NO; ADD MORPH? NO; ADD SCAN? NO; ATYPICAL LYMPHOCYTE FLAG 0 (0-99); FRAGMENT RBC FLAG 0 (0-99); HEMATOCRIT 42.3 % (40.0-51.0); HEMOGLOBIN 15.2 g/dL (13.7-17.5); LEFT SHIFT FLG 10 (0-99); LIPEMIA HEMOLYSIS FLAG 90 (0-99); MEAN CELL HEMOGLOBIN 35.7 pg (27.9-34.1); MEAN CELL HEMOGLOBIN CONCENTR. 35.9 g/dL (32.4-36.7); MEAN CELL VOLUME 99.3 fL (81.5-99.8); MEAN PLATELET VOLUME 12.2 fL (8.7-11.7); PLATELET CLUMPS FLAG 0 (0-99); PLATELET COUNT 236 10^3/uL (150-400); RED BLOOD CELL COUNT 4.26 10^6/uL (4.40-6.38); RED CELL DISTRIBUTION WIDTH 12.7 % (11.5-15.2)
--- NOTE | 2017-02-08 08:13 | HOSPPROG ---
Hospitalist Progress Note Assessment/Plan: DIAGNOSES: * Acute on chronic respiratory failure, s/p mech ventilation -combined COPD and Diast CHF, pneumonia -slow improvement, still debilitated by this * Aspiration pneumonia with severe sepsis - MSSA -IV invanz * COPD exacerbation -IV solumedrol, nebs - change back to PO prednisone soon -ongoing tobacco - advise cessation * Acute on chronic diastolic CHF -s/p good diuresis, continue PO Lasix; BPs not bad * Chest pain episode (tells me these are sharp sudden, relieved by drinking water) -nuc stress normal -suspect these may be esophageal by the description * Etoh withdrawal with encephalopathy - severe -weaned off benzos * Chronic Resp Failure / Obesity / JO-ANN - home O2 and CPAP (non-compliant with bothat home) * Afib - now back NSR (likely due to EtOH and its withdrawal) -[id number] = 0 to 1 - ASA -low dose beta-arabella * Etoh pancreatitis * Secondary Polycythemia due to resp failure s/p phlebotomy -patient admits to O2 non-compliance - wears it only a couple hours per day * Hypercalcemia due to mild primary hyperparathyroidism * Alcoholism -thiamine, counseling PLANS: -continue current resp care -will slow diuresis a bit at present but that will need to continue -continue invanz at present -continue B Arabella, ASA for afib -thiamine -proph lovenox, scds -he may benefit from different antidepressant tx, but that would best be done by primary psychiatrist/therapist -may at some point need esophageal studies to look for motility or anatomic issues I have reviewed w Dr Birch today SUBJECTIVE: Main complaint is severe weakness and fatigue, also not sleeping at all here Still sob at rest on O2 Not very anxious OBJECTIVE: vitals: mild HTN, otherwise normal card monitor: NSR exam: alert oriented, no anxiety or tremor depressed affect skin warm dry resps mildly labored lungs diminished but clear otherwise heart reg abd soft nontender still w mild edema of legs Stress Nuc Med from Yesterday, my review of images: no sign of ischemia or myocardial dysfunction Objective: Vital Signs Temp Pulse Resp BP Pulse Ox 36.3 C 94 20 141/81 H 92 02/08/17 07:49 02/08/17 07:49 02/08/17 07:49 02/08/17 07:49 02/08/17 07:49 Laboratory Results 02/08/17 06:30 10/21/17 01:00 02/07/17 02/08/17 02/09/17 06:59 06:59 06:59 Intake Total 500 1320 Output Total 600 Balance -100 1320 PT 13.2 SEC (12.0-15.0) 01/24/17 01:10 INR 1.01 (0.83-1.16) 01/24/17 01:10 - Time Spent With Patient Time Spent with Patient: greater than 35 minutes Time Spent with Patient: Greater than 35 minutes spent on this patients care, greater than 50% of time spent counseling, educating, and coordinating care regarding the above mentioned plan. ICD10 Worksheet Patient Problems: Problems Problem Status Onset Acute pancreatitis Acute
[2017-02-08] MEDS: ERTAPENEM 1 GM in NS 100 ML IV SCH (08:27)
[2017-02-08] MEDS: METOPROLOL TARTRATE 25 MG TAB PO SCH ×2 (08:32→20:04)
[2017-02-08] MEDS: THIAMINE HCL 100 MG TAB PO SCH (08:34)
[2017-02-08] MEDS: ASPIRIN EC 325 MG TAB PO SCH (08:34)
[2017-02-08] MEDS: busPIRone 15 MG TAB PO SCH ×2 (08:34→20:04)
[2017-02-08] MEDS: GABAPENTIN 300 MG CAP PO SCH ×2 (08:35→20:04)
[2017-02-08] MEDS: ENOXAPARIN 40 MG/0.4 ML SYR SC SCH (08:36)
[2017-02-08] MEDS: NICOTINE 21 MG/24 HR PATCH TD SCH (08:44)
[2017-02-08] MEDS: FUROSEMIDE 20 MG TAB PO SCH (08:49)
[2017-02-08] MEDS ORDERED: POTASSIUM CL 10 MEQ TAB PO ONE (08:53)
--- NOTE | 2017-02-08 11:33 | PDINTPN ---
Product Safety Manager Progress Note Assessment/Plan: Assessment: * Acute respiratory failure: Improving now. Down to 6 L. Moved back to the intensive care unit 02/04 secondary to higher oxygen requirements. He was down to 5 L when sent out of the unit 02/03, essentially his baseline oxygen requirement. Moved back with oxygen needs at 15 L. He did report an episode of emesis with aspiration on the floor. Chest x-ray shows increased markings with vague bibasilar infiltrates and atelectasis however he had little in the way of infectious symptoms. He was not febrile, white blood cell count was down. His increased oxygen requirements were felt to be likely secondary to aspiration pneumonitis without significant recurrent pneumonia. He was treated with another 4 days of ertapenem and intravenous empiric Solu-Medrol. There was no evidence of congestive heart failure as he had been diuresed. There was no significant clinical suspicion for pulmonary embolic disease. Lower extremity venous ultra sounds are negative, previous CT angiogram was negative and he has been on prophylactic anticoagulation. * Alcoholism. Has been drinking heavily for at least a month prior to admit. Appears to be over alcohol withdrawal at this point. * Obstructive sleep apnea; Has CPAP (or possibly ASV), but had been non- compliant, using it only a few times/week. Has not had follow-up. * ? AF. No further episodes * HTN: Borderline. Well controlled * Hypercalcemia: Likely due to hyperparathyroidism. Ionized Ca remains high. Plan: Continue current bronchopulmonary therapies. Ertapenem to stop after today, to go back to prednisone at 40 mg twice daily. Continue to increase mobilization. Chest x-ray and laboratory will be followed. All the above was discussed with the patient and his , RT, the hospitalist, and the ICU multi disciplinary team. 30 minutes of critical care time was spent directly with the patient. Subjective: Complains of dyspnea on exertion. Weak. Feels wiped out. No cough or mucus. Wanting to go home despite the relative severity of his underlying chronic pulmonary disease. Objective: Vital Signs Temp Pulse Resp BP Pulse Ox 36.3 C 82 20 141/81 H 92 02/08/17 07:49 02/08/17 08:32 02/08/17 07:49 02/08/17 08:32 02/08/17 07:49 Laboratory Results 02/08/17 06:30 02/08/17 01:00 02/07/17 02/08/17 02/09/17 05:59 05:59 05:59 Intake Total 500 1320 100 Output Total 600 Balance -100 1320 100 PT 13.2 SEC (12.0-15.0) 01/24/17 01:10 INR 1.01 (0.83-1.16) 01/24/17 01:10 Physical Exam - Physical Exam General Appearance: alert, no apparent distress, other (Up in bathroom with walker) EENT: PERRL/EOMI, other (Nasal cannula at 6 L: 92%) Neck: normal inspection (No JVD) Respiratory: lungs clear, prolonged expiration, No rhonchi, No wheezing Cardiac/Chest: regular rate, rhythm Abdomen: normal bowel sounds, non-tender, soft (Overweight) Skin: normal color, warm/dry Extremities: No pedal edema Neuro/Psych: no motor/sensory deficits, No cognition abnormalities ICD10 Worksheet Patient Problems: Problems Problem Status Onset Acute pancreatitis Acute
[2017-02-08] MEDS: FLUTICASONE/SALMETER 250/50MCG DISKUS IH SCH ×2 (14:51→21:50)
[2017-02-08] MEDS: TIOTROPIUM INHALER 18 MCG/DOSE 5 DOSE/MDI IH SCH (14:51)
[2017-02-08] MEDS: predniSONE 20 MG TAB PO SCH (17:18)
[2017-02-08 17:48] LABS: POTASSIUM 4.4 mEq/L (3.5-5.2)
[2017-02-08] MEDS: MIRTAZAPINE 30 MG TAB PO SCH (20:04)
[2017-02-08] MEDS: MELATONIN 3 MG TAB PO SCH (20:04)
[2017-02-09] MEDS: IPRATROPIUM/ALBUTEROL 3 ML DEYVIAL IH SCH ×4 (06:52→22:20)
[2017-02-09] MEDS: predniSONE 20 MG TAB PO SCH ×2 (08:37→17:11)
[2017-02-09] MEDS: ASPIRIN EC 325 MG TAB PO SCH (08:37)
[2017-02-09] MEDS: FUROSEMIDE 20 MG TAB PO SCH (08:38)
[2017-02-09] MEDS: METOPROLOL TARTRATE 25 MG TAB PO SCH ×2 (08:38→19:34)
[2017-02-09] MEDS: THIAMINE HCL 100 MG TAB PO SCH (08:38)
[2017-02-09] MEDS: GABAPENTIN 300 MG CAP PO SCH ×2 (08:39→22:00)
[2017-02-09] MEDS: ENOXAPARIN 40 MG/0.4 ML SYR SC SCH (08:40)
[2017-02-09] MEDS: NICOTINE 21 MG/24 HR PATCH TD SCH (08:40)
[2017-02-09] MEDS: busPIRone 15 MG TAB PO SCH ×2 (08:43→22:00)
--- NOTE | 2017-02-09 09:07 | HOSPPROG ---
Hospitalist Progress Note Assessment/Plan: patient is a 61 y/o who was admitted with abdominal pain and alcohol withdrawal. He was intubated due to respiratory failure. Today is my first encounter with the patient, chart reviewed. * Acute on chronic respiratory failure - 5L baseline (although he never wears it) -s/p extubation -was on Invanz -on 7 liters this morning * Aspiration pneumonia with severe sepsis - MSSA -IV invanz/dc by the nanny caregiver * COPD exacerbation -IV solumedrol, nebs - change back to PO prednisone soon -ongoing tobacco - advise cessation * leukocytosis -secondary to steroids *nicotine dependence: patch * Acute on chronic diastolic CHF -s/p good diuresis - now euvolemic -PO Lasix * Chest pain - has intermittently in past - severe episode today -nuc med stress test stable * Etoh withdrawal - severe -weaned off benzos * Obesity / JO-ANN - home CPAP (non-compliant) * Afib - now back NSR -[id number] = 0 to 1 - ASA -low dose beta-amy * Etoh pancreatitis * Metabolic encephalopathy - resolved * Polycythemia s/p phlebotomy -patient admits to O2 non-compliance - wears it only a couple hours per day * Hypercalcemia due to mild primary hyperparathyroidism -outpatient follow-up *plan. Patient is wanting to go home this morning. He is very concerned he will be affected from his home if he does not get better today. Case management actively working with him to figure out a plan. Will ask pulmonology to come up and see him again Subjective: Patient says he is feeling better and is anxious to get out of the hospital Objective: Vital Signs Temp Pulse Resp BP Pulse Ox 36.6 C 67 14 105/65 95 02/09/17 07:09 02/09/17 08:38 02/09/17 07:09 02/09/17 08:38 02/09/17 07:09 Laboratory Results 02/08/17 06:30 02/08/17 17:20 02/08/17 02/09/17 02/10/17 05:59 05:59 05:59 Intake Total 1320 400 Output Total 0 Balance 1320 400 PT 13.2 SEC (12.0-15.0) 01/24/17 01:10 INR 1.01 (0.83-1.16) 01/24/17 01:10 - Physical Exam Constitutional: no apparent distress, chronically ill appearing Eyes: PERRL Ears, Nose, Mouth, Throat: hearing normal Cardiovascular: regular rate and rhythym Respiratory: no respiratory distress, reduced air movement Gastrointestinal: normoactive bowel sounds, other (Round) Skin: warm Musculoskeletal: generalized weakness Neurologic: AAOx3 Psychiatric: interacting appropriately ICD10 Worksheet Patient Problems: Problems Problem Status Onset Acute pancreatitis Acute
[2017-02-09] MEDS: FLUTICASONE/SALMETER 250/50MCG DISKUS IH SCH ×2 (11:28→22:20)
[2017-02-09] MEDS: TIOTROPIUM INHALER 18 MCG/DOSE 5 DOSE/MDI IH SCH (11:28)
--- NOTE | 2017-02-09 18:31 | ASMTCMCOM ---
CM Note CM Note Notes: Reviewed chart; spoke w/ Dot Christiansen NP re: d/c poc. Pt wishing to leave AMA today. Met w/ pt and spouse for extended time to discuss pt's concerns. Pt states he would like to go home, he is feeling overwhelmed by the mounting medical bills; the potential for eviction from his home sec to not paying rent. He reports losing his disability funding and unemployment d/t the extended amount of time in the hospital. Attempted to help ease pt's anxiety w/ support and reassurance. CM explained the risks of leaving AMA and potential for Medicare to not cover hospital stay. Discussed financial and medical implications of leaving. Spent time helping pt problem solve concerns. Maynor, RT to bedside to assist w/ education and oxygen concerns. [employer] contacted; oxygen tank obtained for transport home w/ additional supplies for CPAP machine and oxygen concentrator (both at bedside). Note obtained from Dot Christiansen NP for pt's financial and eviction concerns (see copy in chart). CM to contact Medicaid staff in AM to re-eval pt for Medicaid. Discussed HHC vs Palliative care w/ pt and spouse. Pt open to HHC. Call placed to Leonila at [facility]. New referral created; pt will need RN/PT/OT/SW/ST - SW is indicated for pt's anxiety, ETOH hx, financial concerns. Per Leonila, should be able to accept pt for start of care Friday02/11/17. LVM on intake line w/ [facility] as well; CM to f/u on Fri. Visited pt several times for support and reassurance throughout shift. CM also discussed ETOH resources, such as AA. CM to provide additional resources prior to d/c. CM will cont to follow. Date Signed: 02/09/2017 06:30 PM Electronically Signed By:Cassie Weinberg RN
[2017-02-09] MEDS: MELATONIN 3 MG TAB PO SCH (22:00)
[2017-02-09] MEDS: MIRTAZAPINE 30 MG TAB PO SCH (22:01)
[2017-02-10] MEDS: IPRATROPIUM/ALBUTEROL 3 ML DEYVIAL IH SCH ×2 (06:14→11:11)
[2017-02-10] MEDS: ASPIRIN EC 325 MG TAB PO SCH (08:44)
[2017-02-10] MEDS: GABAPENTIN 300 MG CAP PO SCH (08:44)
[2017-02-10] MEDS: predniSONE 20 MG TAB PO SCH (08:44)
[2017-02-10] MEDS: METOPROLOL TARTRATE 25 MG TAB PO SCH (08:45)
[2017-02-10] MEDS: THIAMINE HCL 100 MG TAB PO SCH (08:45)
[2017-02-10] MEDS: busPIRone 15 MG TAB PO SCH (08:46)
[2017-02-10] MEDS: FUROSEMIDE 20 MG TAB PO SCH (08:46)
[2017-02-10] MEDS: ENOXAPARIN 40 MG/0.4 ML SYR SC SCH (08:46)
[2017-02-10] MEDS: NICOTINE 21 MG/24 HR PATCH TD SCH (08:46)
[2017-02-10 09:05] VITALS: BP 134/84; RESP 16; TEMP 98
--- NOTE | 2017-02-10 09:46 | PDIAF ---
- Diagnosis Diagnosis: PNA Code Status: Full Code - Medication Management Discharge Medications: Medications to Continue on Transfer Albuterol [Proventil Inhaler HFA (*)] 1 - 2 puffs IH Q4H PRN 01/24/17 [Last Taken 01/23/17] Gabapentin [Neurontin 300 MG (*)] 1,200 mg PO HS 01/24/17 [Last Taken 01/22/17] Gabapentin [Neurontin 300 MG (*)] 600 mg PO DAILY 01/24/17 [Last Taken 01/23/17] Mirtazapine [Remeron] 45 mg PO HS 01/24/17 [Last Taken 01/23/17] Tiotropium Inhaler [Spiriva Inhaler (RX)] 1 inh IH DAILY 01/24/17 [Last Taken ] busPIRone [Buspar (*)] 7.5 mg PO BID 01/24/17 [Last Taken 01/23/17 09:00] Acetaminophen [Tylenol 325mg (*)] 325 - 650 mg PO Q4HRS PRN tab 02/10/17 [Last Taken Unknown] Aspirin EC [Aspirin EC 325 mg (*)] 325 mg PO DAILY tab 02/10/17 [Last Taken Unknown] Fluticasone/Salmeter 250/50Mcg [Advair 250/50 (*)] 1 puffs IH BID #1 disk [Last Taken Unknown] Furosemide [Lasix 20 MG (*)] 20 mg PO DAILY #30 tab 02/10/17 [Last Taken Unknown ] Melatonin [Melatonin 3 MG (*)] 3 mg PO HS tab 02/10/17 [Last Taken Unknown] Metoprolol Tartrate [Lopressor 25 mg (*)] 12.5 mg PO BID #60 tab 02/10/17 [Last Taken Unknown] Nicotine [Nicoderm Cq 21 mg (*)] 21 mg TD DAILY patch 02/10/17 [Last Taken Unknown] Tears/Dextran 70/Hypromellose [Natural Balance Tears (*)] 1 drop EACHEYE Q2HRS PRN opht.btl 02/10/17 [Last Taken Unknown] Thiamine HCl [Vitamin B-1] 100 mg PO DAILY tab 02/10/17 [Last Taken Unknown] predniSONE 40 mg PO BIDMEAL #120 tablet 02/10/17 [Last Taken Unknown] Discharge Medications: Refer to the Discharge Home Medication list for PRN reason. PICC Care - Routine: N/A - Orders Services needed: Home Care, Registered Nurse, Master Film Rental Clerk, Physical Therapy, Occupational Therapy Home Care Face to Face: I certify that this patient was under my care and that I had the required [id number] encounter meeting the encounter requirements on the discharge day. My findings support the fact that the patient is homebound as defined in Home Care Face to Face Continued: CMS Chapter 7 Medicare Benefits Manual 30.1.1 , The condition of the patient is such that there exists a normal inability to leave home and consequently, leaving home would require a considerable and taxing effort. Diet Recommendation: no restrictions on diet Diet Texture: Regular Texture Diet, Thin Liquids, Meds Whole w/Liquids - Labs/Radiology CBC Date: 02/12/17 CMP Date: 02/12/17 - Follow Up Care Current Providers and Referrals: NONE *PRIMARY CARE P,. [Unknown] - As per Instructions
[2017-02-10] MEDS: TIOTROPIUM INHALER 18 MCG/DOSE 5 DOSE/MDI IH SCH (11:10)
[2017-02-10] MEDS: FLUTICASONE/SALMETER 250/50MCG DISKUS IH SCH (11:11)
[2017-02-10 11:25] VITALS: PULSE 85; O2SAT 92
--- NOTE | 2017-02-10 14:55 | ASMTCMCOM ---
CM Note CM Note Notes: CM spoke w/ TOMMY Hsu, Pinky Clarke, MIXED ANIMAL VETERINARIAN and OT regarding d/c POC. the chaplain Ernie met w/ pt today. CM met w/ pt for dispo planning. Pt is agreeable to having palliative. CM provided pt w/ a list of palliative options. Pt did not have a preference. CM made a referral to [facility]. CM spoke w/ [facility] and they are able to accept pt and start services this evening. Pt continues to refuse SNF. Pt is being discharged today. CM notified [facility] that pt is being discharged today. CM provided TOMMY Hsu w/ phone number to give report. CM contacted [facility] to see if they can see pt before d/c. [facility] CM scheduled an appt w/ Dr. Rehman for tomorrow at 11AM. CM inputed appointment in d/c paperwork section. CM available for changes. Date Signed: 02/10/2017 02:55 PM Electronically Signed By:MARBIN Herrera
--- NOTE | 2017-02-10 15:50 | GDS ---
[f rep st] DISCHARGE SUMMARY DISCHARGE DIAGNOSES: 1. Acute on chronic respiratory failure. 2. Aspiration pneumonia with severe sepsis. 3. Chronic obstructive pulmonary disease exacerbation. 4. Leukocytosis. 5. Nicotine dependence. 6. Acute on chronic diastolic congestive heart failure. 7. Chest pain. 8. Alcohol withdrawal. 9. Atrial fibrillation. 10. Alcoholic pancreatitis. 11. Metabolic encephalopathy. 12. Polycythemia. 13. Hypercalcemia. PHYSICAL EXAM: GENERAL: The patient is alert. VITAL SIGNS: Afebrile at 36.6, pulse is 75, respira tory rate 16, blood pressure is 134/84, he is saturating 92% on 6 L. I have seen and evaluated the p atient on the day of discharge. HOSPITAL COURSE: 1. The patient is a 61-year-old male who was admitted to the hospital secondary to abdominal pain an d alcohol withdrawal. He was treated and diagnosed with acute on chronic respiratory failure. He di d require intubation during this hospitalization. He is now requiring 5-6 L, which is his baseline. 2. Aspiration pneumonia with severe sepsis. The patient has been treated with intravenous Invanz an d his condition has resolved. 3. Chronic obstructive pulmonary disease exacerbation. He will continue on oral prednisone at the t marilia of disposition. 4. Leukocytosis. This is mild and is a reaction to the patient's steroid treatment. 5. Acute on chronic diastolic congestive heart failure. He is euvolemic and appears stable on oral Lasix. 6. Alcohol withdrawal. This is resolved and he has been weaned off his benzodiazepines. 7. Polycythemia. The patient has required phlebotomy during this hospitalization secondary to the p atient's O2 noncompliance. He is stable. 8. Hypercalcemia. This is primary hyperparathyroidism and outpatient followup as warranted. DISPOSITION: The patient will be discharged home with home health care. He has been advised on mult iple occasions that this is not the recommendation; the recommendation is for him to be discharged to a longterm facility for further strengthening and conditioning. He is competent to make thes e decisions and has decided to go home with home health care and refuses longterm facility at the time of disposition. He understands that this is a risk for his overall health. There are no pending studies. DISCHARGE MEDICATIONS: Please refer to EMR form. Some of the patient's previously prescribed home m edications have been discontinued. FOLLOWUP: Will be with his primary care physician, Dr. Power Rehman. He will also have home heal th care, PT, OT, RN as well as social work faculty member. The patient has also agreed to home palliative care. Supplemental oxygen has been provided for the patient at the time of disposition. I spent greater than 35 minutes in the care, coordination, and management of the patient's discharge. /[id number]/MODL
--- NOTE | 2017-02-10 16:59 | ASDISCHSUM ---
Discharge Information Plan Status:Home with Home Health Medically Cleared to Leave:02/10/2017 Discharge Date:02/10/2017 03:21 PM D/C Disposition:Home Health Service ADT D/C Disposition:Home Health Service Projected Discharge Date:02/10/2017 11:00 AM Transportation at D/C: Discharge Delay Reason: Follow-Up Date:02/10/2017 11:00 AM Discharge Slot: Final Diagnosis:Respiratory Failure, PNA, Sepsis, CHF, ETOH pancreatitis Placement Information Referral Type:*Home Health Care Services Referral ID:[id number] Provider Name:[facility] Care Address 1:[address] [address] Address 2: City:[place] Selection Factors: State:[place] Referral Type:*Hospice Referral ID:[id number] Provider Name:[facility] Address 1:[address] [facility] Phone Number: Address 2: Fax Number: [facility]:[place] Selection Factors: State:[place] Patient Contact Information Contact Name:GURINDER Relationship:Son Address: Work Phone: City:[place] Alternate Phone: [facility] Code:[place] Email: Financial Information Financial Class: Primary Plan Desc:MEDICARE INPATIENT Primary Plan Number:[id number] Secondary Plan Desc: Secondary Plan Number: Assessment Information [facility] CM Progress Note CM Note CM Note Notes: Chart reviewed. In rounds pt dx with panceatitis and withdrawal. Son to be proxy if needed. Supportive measures for withdrawal. NTBD at this time. CM to follow. Date Signed: 01/24/2017 10:52 AM Electronically Signed By:Briseyda Carrillo RN [facility] CM Progress Note CM Note CM Note Notes: Reviewed chart re: d/c poc, pt's progress. Per ICU rounds, pt intubated. Pt w/ hx of smoking, sleep apnea, COPD. New PICC line to be placed today. CIWA score 35. Severe ETOH w/d, pancreatitis. Discharge needs remain TBD at this time. CM will cont to follow. Date Signed: 01/25/2017 05:39 PM Electronically Signed By:Cassie Weinberg RN [facility] Progress Note CM Note CM Note Notes: Patient agitated and now restrained in ETOH W/D, NG to suction, NPO, no BM as yet, wound care following. in room offering support to patient. Date Signed: 01/28/2017 11:32 AM Electronically Signed By:Denise Johnston LCSW [facility] CM Progress Note CM Note CM Note Notes: Patient remains intubated/sedated with persistent hypoxemia. I spoke at length with patient's Constanza, who has been spending all day, every day with patient. She said that patient has never been this sick before. Constanza said that he has battled with chronic pain, opioid addiction, and mental illness for years. Per Constanza, patient was prescribed opioids for his back pain 6-7 years ago and became addicted. Three years ago, she took him to [facility] for treatment. According to Constanza, he had been doing well for a few years post-tx - exercising, not smoking/drinking, working - but that in the last 7 months, he has abandoned his good habits and resumed the unhealthy ones. He has been unable to work because of his back pain and has been drinking a lot. She says that he has "many anxieties," and she brought his mental health meds in to the hospital with her. Constanza says that patient has family in [place], and she is in contact with them. She said that patient has not been interested in moving to [place] to be close to family even though he is alone with her in the [place] area. RE: d/c planning, Constanza realizes that patient has a long road ahead and that he will need external support, whether that be in the form of SNF rehab, alcohol rehab, or behavioral health treatment, or any combination thereof. She appreciates our help in the process and will await our recommendations. Date Signed: 01/30/2017 12:26 PM Electronically Signed By:Dafne Gutiérrez RN [facility] Progress Note CM Brian KHALIL Note Notes: Patient sitting up in chair today talking to staff. Issues: sepsis-aspiration PNA, COPD, JO-ANN, 7 lits of O2, nicoderm patch. Invited to "Family Meeting", she would like patient's son to attend, meeting set up for at 12:00. Therapies recommending SNF vs In-pt Rehab at this time. Date Signed: 02/03/2017 04:10 PM Electronically Signed By:Denise Johnston LCSW [facility] Progress Note CM Note CM Note Notes: Patient returned to ICU due to worsening respiratory status. Had a "Family Meeting" with , son, mother, brother. Patient had a work related back injury 10 years ago. He was started on narcotics but was able to discontinue that dependency. Son reports that patient has a dx of Bipolar and JO-ANN. He is not being tx for his Bipolar and occasionally uses his c-pap machine. Family feels that although patient wasn't a smoker or drinker in the past and quite physically active, he has now turned to alcohol and smoking to assist with his anxiety, pain and insomnia and has become quite isolative. Left message for Behavior Health RN to visit patient. Patient needs help with life style changes. Very weak, might be motivated enough for In-pt Rehab. Date Signed: 02/04/2017 05:02 PM Electronically Signed By:Denise Johnston LCSW [facility] Progress Note CM Note CM Note Notes: Chart reviewed. Pt reviewed in rounds this am. Oxygen needs remain high. Per notch machine operator patient wanted resounces for alcohol addiction recovery. He has Medicare, patient given list of resources. He is not inclined to seek an inpatient treatment program at this time. He and his family will consider the best availble options available to them. CM to follow, Date Signed: 02/05/2017 03:56 PM Electronically Signed By:Briseyda Carrillo RN [facility] Progress Note CM Note CM Note Notes: Patient is here withacute pancreatitis, respiratory failure and ETOH withdrawal. He has a supportive family, spiritual services has been following as well. Patient reports he is having trouble with home oxygen companies and financial I spoke with Amber in [place] and patient has a balance of 530.00 with them. His Medicare Part B has lapsed per pt due to his inability to pay. He reports he lost his SSDI when he tried to return to gainful employment. He resists my suggestion to call Medicare and the oxygen company and became agitated. I have asked our financial department to screen him for Medicaid. CM to follow Date Signed: 02/06/2017 02:42 PM Electronically Signed By:Briseyda Carrillo RN [facility] Length of stay for Answers: 14 days or more current admission Acuity / Level of Care Answers: Was the patient admitted to hospital via the emergency department? Yes: Comorbidities - select Answers: Chronic pulmonary disease all that apply Moderate or severe liver disease or renal disease Emergency dept visits in Answers: 1 last 6 months Score: 17 Date Signed: 02/07/2017 11:02 AM Electronically Signed By:Briseyda Carrillo RN [facility] Progress Note CM Note CM Note Notes: Chart reviewed. Also discussed patient in rounds. Per PT and OT they recommend SNF as patient has limited activity tolerances. His gait is unsteady and he requires 4 wheeled walker. He is adamant about going home. Veronika Hemphill in room talking to pt. He has poor insight to his situation and he states his family is around hime all the time. I will talk to him about [facility] services, CM to follow. Date Signed: 02/07/2017 11:33 AM Electronically Signed By:Briseyda Carrillo RN [facility] CM Progress Note CM Note CM Note Notes: Reviewed chart; spoke w/ Dot Christiansen NP re: d/c poc. Pt wishing to leave AMA today. Met w/ pt and spouse for extended time to discuss pt's concerns. Pt states he would like to go home, he is feeling overwhelmed by the mounting medical bills; the potential for eviction from his home sec to not paying rent. He reports losing his disability funding and unemployment d/t the extended amount of time in the hospital. Attempted to help ease pt's anxiety w/ support and reassurance. CM explained the risks of leaving AMA and potential for Medicare to not cover hospital stay. Discussed financial and medical implications of leaving. Spent time helping pt problem solve concerns. Maynor, RT to bedside to assist w/ education and oxygen concerns. Karla contacted; oxygen tank obtained for transport home w/ additional supplies for CPAP machine and oxygen concentrator (both at bedside). Note obtained from Dot Christiansen NP for pt's financial and eviction concerns (see copy in chart). CM to contact Medicaid staff in AM to re-eval pt for Medicaid. Discussed HHC vs Palliative care w/ pt and spouse. Pt open to HHC. Call placed to Leonila at [facility]. New referral created; pt will need RN/PT/OT/SW/ST - SW is indicated for pt's anxiety, ETOH hx, financial concerns. Per Leonila, should be able to accept pt for start of care Friday02/11/17. LVM on intake line w/ [facility] as well; CM to f/u on Fri. Visited pt several times for support and reassurance throughout shift. CM also discussed ETOH resources, such as AA. CM to provide additional resources prior to d/c. CM will cont to follow. Date Signed: 02/09/2017 06:30 PM Electronically Signed By:Cassie Weinberg RN [facility] Progress Note CM Note CM Note Notes: CM spoke w/ TOMMY Hsu, Pinky Clarke SENIOR DIGITAL DESIGNER and OT regarding d/c POC. the chaplain Ernie met w/ pt today. CM met w/ pt for dispo planning. Pt is agreeable to having palliative. CM provided pt w/ a list of palliative options. Pt did not have a preference. CM made a referral to [facility]. CM spoke w/ [facility] and they are able to accept pt and start services this evening. Pt continues to refuse SNF. Pt is being discharged today. CM notified [facility] that pt is being discharged today. CM provided TOMMY Hsu w/ phone number to give report. CM contacted [facility] to see if they can see pt before d/c. Heather from [facility] met w/ pt. [facility] scheduled an appt w/ Dr. Rehman for tomorrow at 11AM. CM inputed appointment in d/c paperwork section. CM available for changes. Date Signed: 02/10/2017 02:55 PM Electronically Signed By:MARBIN Herrera Intervention Information Intervention Type:Education Family/Patient Date of Service:02/09/2017 06:11 PM Patient Type:Inpatient Staff Member:TOMMY Weinberg Taylor Hours:0.5 Discipline: Severity: Comment:Met w/ pt and spouse to discuss ETOH, anxiety, financial concerns. Talked about alternative strategies for coping; attempting to tackle small, manageable tasks vs huge, unmanageable issues. Enc pt to focus on healing, recovery, seeking services after d/c. Intervention Type:Specialized DME Date of Service:02/09/2017 06:13 PM Patient Type:Inpatient Staff Member:TOMMY Weinberg Taylor Hours:0.5 Discipline: Severity: Comment:Assisted pt w/ verifying oxygen delive ry and setup at home. Karla contacted to deliver travel tank for transport home, plus additional supplies for CPA P and O2 concentrator. Intervention Type:*IM-Signed Date of Service:02/10/2017 12:12 PM Patient Type:Inpatient Staff Member:Ele Bach Hours: Discipline: Severity: Comment:
== END 2017-02-10 15:21 | disposition home health service (06) | DRG 987 ==
LOC: EDUNIT# → F3E 02:18 → F2N 09:34 → F2W 02-03 19:58 → F2N 02-04 11:27 → F3E 02-08 16:16
PROVIDERS: ADMIT Family Medicine; ATTEND Family Medicine
PROC: 0BH17EZ Insertion of Endotracheal Airway into Trachea, Via Natural or Artificial Opening (ICD-10-PCS; 2017-01-25)
PROC: 5A1955Z Respiratory Ventilation, Greater than 96 Consecutive Hours (ICD-10-PCS; 2017-01-25)
PROC: 02HV33Z Insertion of Infusion Device into Superior Vena Cava, Percutaneous Approach (ICD-10-PCS; 2017-01-25)
PROC: 0B9F8ZX Drainage of Right Lower Lung Lobe, Via Natural or Artificial Opening Endoscopic, Diagnostic (ICD-10-PCS; principal; 2017-01-26)
PROC: 0B948ZZ Drainage of Right Upper Lobe Bronchus, Via Natural or Artificial Opening Endoscopic (ICD-10-PCS; 2017-02-01)
PROC: 0B968ZZ Drainage of Right Lower Lobe Bronchus, Via Natural or Artificial Opening Endoscopic (ICD-10-PCS; 2017-02-01)
PROC: 0B9B8ZZ Drainage of Left Lower Lobe Bronchus, Via Natural or Artificial Opening Endoscopic (ICD-10-PCS; 2017-02-01)
DX: K85.20 Alcohol induced acute pancreatitis without necrosis or infection (principal); J96.20 Acute and chronic respiratory failure, unspecified whether with hypoxia or hypercapnia; J69.0 Pneumonitis due to inhalation of food and vomit; I50.33 Acute on chronic diastolic (congestive) heart failure; A41.01 Sepsis due to Methicillin susceptible Staphylococcus aureus; R65.20 Severe sepsis without septic shock; G93.41 Metabolic encephalopathy; F10.239 Alcohol dependence with withdrawal, unspecified; J44.1 Chronic obstructive pulmonary disease with (acute) exacerbation; F17.200 Nicotine dependence, unspecified, uncomplicated; D75.1 Secondary polycythemia; E83.52 Hypercalcemia; G47.33 Obstructive sleep apnea (adult) (pediatric); E66.9 Obesity, unspecified; Z68.31 Body mass index [BMI] 31.0-31.9, adult
CPT/HCPCS: 92507-GN; 92523-GN; 92526-GN; 92610-GN; 96374; 97110-GP; 97116-GP; 97162-GP; 97166-GO; 97530-GO; 97535-GO; A9500; C1751; G0480; G8978-GP-CK; G8979-GP-CI; G8988-GO-CK; G8989-GO-CI; G8996-GN-CI; G8997-GN-CH; G8998-GN-CH; J0330; J0360; J1170; J1335; J1650; J1940; J2060; J2250; J2405; J2550; J2704; J2765; J2785; J2997; J3010; J3411; P9041; P9047; Q9967

== ENCOUNTER → 2017-10-24 | Outpatient (CLI) | payer MEDICAID, OTHER | LOC: BMCIMAGING 13:30 | PROVIDERS: ATTEND Internal Medicine | DX: M51.36 Other intervertebral disc degeneration, lumbar region (principal); M89.38 Hypertrophy of bone, other site; M25.552 Pain in left hip ==